=== PATIENT | male | born 1950 | race American Indian/Alaskan Native ===

== ENCOUNTER 2017-02-05 13:59 | Emergency (ER) | payer MEDICARE | END 2017-02-05 15:50 | disposition left against medical advice (07) | LOC: ED 13:59 | DX: R11.10 Vomiting, unspecified (principal); Z53.21 Procedure and treatment not carried out due to patient leaving prior to being seen by health care provider ==

== ENCOUNTER 2017-02-06 11:38 | Inpatient (IN) | payer MEDICARE ==
--- NOTE | 2017-02-06 12:57 | Emergency Department Report ---
HPI - General Chief Complaint: Weakness Time Seen by Provider: 02/06/17 11:57 - HPI HPI: Chief complaint: Weakness, decreased appetite, nausea and vomiting HPI: Patient is a 66-year-old male with a history of dementia, arthritis, diabetes and hypertension who according to his had a syncopal episode 3 weeks ago. Patient was seen at [facility] for 3 days and after that they states she took an to her neurologist Dr. Duarte. Patient was scheduled for an MRI today but is here instead. Patient's states for the last 3 days he's been having nausea and vomiting and been unable to eat. Patient also has decreased responsiveness and is not talking. states that she gave him some Pedialyte which she was able to keep down but he has not been able to keep anything else down. There is no diarrhea but according to his he's had a dark stool. also states that he's been having pain on urination and difficulty urinating for the last 2 weeks. Patient has had no fever but does have a slight dry cough. Mode of arrival: EMS Source: Patient and patient's Began: See above Duration: See above Context: See above Quality: Unable to assess Severity: out of 10 Improved with: Unable to assess Worsened with: Unable to assess Associated signs and symptoms: See above ED Past Medical Hx - Past Medical History Previous Medical History?: Yes Hx Hypertension: Yes Hx Diabetes: Yes Hx Arthritis: Yes (hands) Hx Dementia: Yes Hx HIV: No Additional medical history: Alzheimer's - Surgical History Past Surgical History?: No Additional Surgical History: Cataracts - Social History Smoking Status: Never Smoker Substance Use Type: None - Medications Home Medications: Home Medications Medication Instructions Recorded Confirmed Last Taken Type Aspirin [Aspirin BABY CHEW TAB] 81 mg PO QDAY 07/08/16 02/06/17 07/08/16 History Citalopram [celeXA] 20 mg PO QDAY 07/08/16 02/06/17 07/08/16 History Fluorometholone [Fml Forte 0.25% 1 drop OP QID 07/08/16 02/06/17 Unknown History eye drops] Hydrochlorothiazide [HCTZ] 25 mg PO QDAY 07/08/16 02/06/17 07/08/16 History Lisinopril [Zestril TAB] 20 mg PO QDAY 07/08/16 02/06/17 07/08/16 History Nepafenac [Ilevro 0.3%] 1 drop OP QHS 07/08/16 02/06/17 Unknown History Promethazine [Phenergan TAB] 25 mg PO Q6HR PRN 07/08/16 02/06/17 Unknown History amLODIPine [Norvasc] 5 mg PO DAILY 07/08/16 02/06/17 07/08/16 History Restasis 0.05% 1 drops OD BID 07/09/16 02/06/17 07/08/16 History Celecoxib [celeBREX] 200 mg PO BID 02/06/17 02/06/17 Unknown History Ibuprofen [Motrin] 600 mg PO Q8H PRN 02/06/17 02/06/17 Unknown History Memantine HCl/Donepezil HCl 1 tab PO DAILY 02/06/17 02/06/17 Unknown History [Namzaric 28 mg-10 mg Capsule] Pravastatin (Nf) [Pravachol] 80 mg PO QHS 02/06/17 02/06/17 Unknown History levETIRAcetam [Keppra TAB] 500 mg PO BID 02/06/17 02/06/17 Unknown History traMADol 50 mg PO BID 02/06/17 02/06/17 Unknown History traZODone [Desyrel] 150 mg PO QHS 02/06/17 02/06/17 Unknown History ED Review of Systems ROS: Stated complaint: WEAKNESS,AMR Other details as noted in HPI Comment: Unobtainable due to pts medical conditions (dementia) Physical Exam - Physical Exam Physical Exam: GENERAL: The patient is well-developed well-nourished . HEENT: Normocephalic. Atraumatic. Extraocular motions are intact. Patient has moist mucous membranes. NECK: Supple. No meningitic signs are noted. There is no adenopathy noted. CHEST/LUNGS: Clear to auscultation. There is no respiratory distress noted. HEART/CARDIOVASCULAR: Regular. There is no tachycardia. There is no gallop rub or murmur. ABDOMEN: Abdomen is soft, nontender. Patient has normal bowel sounds. There is no abdominal distention. SKIN: There is no rash. There is no edema. There is no diaphoresis. NEURO: The patient is awake, alert, and oriented to name only. The patient is cooperative. 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 The only question that the patient will answer his name. MUSCULOSKELETAL: There is no tenderness or deformity. There is no limitation range of motion. There is no evidence of acute injury. ED Course - Reevaluation(s) Reevaluation #1: 02/06/17 14:33 Patient given a liter of normal saline and will be admitted to the hospitalist for dehydration. ED Medical Decision Making - Lab Data Result diagrams: 02/06/17 12:29 02/06/17 12:29 Laboratory Tests 02/06/17 02/06/17 12:29 12:36 PT 13.1 INR 1.00 APTT 34.5 Troponin T < 0.010 Urinalysis within normal limits - EKG Data -: EKG Interpreted by Me EKG shows normal: sinus rhythm Rate: normal (61) - EKG Data When compared to previous EKG there are: previous EKG unavailable Interpretation: normal EKG - Radiology Data Radiology results: report reviewed (chest x-ray shows no acute process.) Critical care attestation.: If time is entered above; I have spent that time in minutes in the direct care of this critically ill patient, excluding procedure time. ED Disposition Clinical Impression: Dehydration, moderate Nausea & vomiting Qualifiers: Vomiting type: unspecified Vomiting Intractability: unspecified Qualified Code( s): R11.2 - Nausea with vomiting, unspecified Disposition: OP ADMITTED IP TO THIS HOSP Is pt being admited?: Yes Does the pt Need Aspirin: Yes Condition: Fair Referrals: PRIMARY CARE, [Primary Care Provider] - 3-5 Days Time of Disposition: 14:38 (admit to the hospitalist)
--- NOTE | 2017-02-06 12:57 | XRay Report ---
AP CHEST: HISTORY: Hypertension AP view of the chest demonstrates a normal mediastinal and cardiac contour with clear lungs and normal bony and soft tissue structures. Subtle infiltration at the right lung base has resolved since 07/08/16. IMPRESSION: Unremarkable AP chest.
[2017-02-06 12:58] LABS: Basophils % (Auto) 1.5 % (0.0-1.8); Eosinophils % (Auto) 3.8 % (0.0-4.3); Hematocrit 36.8 % (35.5-45.6); Hemoglobin 12.4 gm/dl (11.8-15.2); Mean Corpuscular HGB Conc 34 % (32-34); Mean Corpuscular Hemoglobin 31 pg (28-32); Mean Corpuscular Volume 92 fl (84-94); Platelet Count 316 K/mm3 (140-440); Red Blood Count 4.01 M/mm3 (3.65-5.03); Red Cell Distribution Width 14.4 % (13.2-15.2); White Blood Count 6.2 K/mm3 (4.5-11.0)
[2017-02-06 13:06] LABS: Partial Thromboplastin Time 34.5 Sec. (24.2-36.6)
[2017-02-06 13:15] LABS: Anion Gap 19 mmol/L; BUN/Creatinine Ratio 25.62; Blood Urea Nitrogen 41 mg/dL (9-20); Calcium 9.4 mg/dL (8.4-10.2); Carbon Dioxide 28 mmol/L (22-30); Chloride 89.1 mmol/L (98-107); Glucose 109 mg/dL (75-100); Potassium 3.4 mmol/L (3.6-5.0); Sodium 133 mmol/L (137-145)
[2017-02-06 14:01] LABS: Bilirubin,Urine NEG (Negative); Blood,Urine NEG (Negative); Ketones,Urine TR mg/dL (Negative); Leukocyte Esterase,Urine NEG (Negative); Nitrite,Urine NEG (Negative); Protein,Urine <15 mg/dL mg/dL (Negative); RBC,Urine < 1.0 /HPF (0.0-6.0); Urobilinogen,Urine < 2.0 mg/dL (<2.0)
[2017-02-06] MEDS ORDERED: ASPIRIN PO ONE (14:39)
--- NOTE | 2017-02-06 14:44 | Admit Criteria Form ---
Admission Criteria Documentation: DEHYDRATION Clinical Indications for Admission to Inpatient Care (Place 'X' for any and all applicable criteria): Admission is indicated for ANY ONE of the following (1)(2)(3)(4)(5): [X ]I. Inpatient admission required rather than observation care (see Dehydration: Observation Care guideline as appropriate) because of ANY ONE of the following: [X ]a) Vomiting that is severe or persistent [ ]b) Severe electrolyte abnormalities requiring inpatient care [ ]c) Hemodynamic instability [ ]d) IV fluid to replace significant ongoing losses (greater than 3 L/m2 per day (10) (11) [ ]e) Parenteral nutrition regimen that must be implemented on inpatient basis [ X]f) Other condition,treatment or monitoring requiring inpatient admission [ ]II. Serious cause for dehydration requiring acute hospitalization (eg, bowel obstruction, increased intracranial pressure, infectious cause) Extended stay beyond goal length of stay may be needed for(1)(3 )(4)(17): [ ]a) Chronic severe dehydration [ ]b) Persistent vital sign changes, severe electrolyte imbalance, or diagnosed cause of dehydration that requires continued hospitalization (eg, bowel obstruction, increased intracranial pressure) [ ]c) Older patients (65 years or older) [ ]d) Severe comorbid illness (eg, renal failure, heart failure, poorly controlled diabetes) The original [employer] content created by [employer] has been revised. The portions of the content which have been revised are identified through the use of italic text or in bold, and [facility] has neither reviewed nor approved the modified material. All other unmodified content is copyright [employer]. Please see references footnoted in the original [employer] edition 2016 Admission Criteria Met: Yes
--- NOTE | 2017-02-06 15:43 | History and Physical Report ---
History of Present Illness Date of examination: 02/06/17 Date of admission: 02/06/17 Chief complaint: nausea, vomiting History of present illness: Patient is 66 yo with dementia, diabetes , hypertension presented with nausea, vomiting and poor appetite for few days. also says he has been less responsive and not been talking much past 3 days. Of note, he had episode of syncope about 3 weeks ago , was admitted at [place], details unclear. On discharge was referred to Neurologist, Dr. Duarte. He went to see PCP, Dr. Montiel and was sent to ED. Here Creatinine elevated 1.6. he is dehydrated. Admit for further management Past History Past Medical History: diabetes, hypertension, hyperlipidemia, other (dementia) Past Surgical History: No surgical history Social history: , smoking (smoking), full code Family history: no significant family history Medications and Allergies Allergies Allergy/AdvReac Type Severity Reaction Status Date / Time No Known Allergies Allergy Unverified 07/08/16 17:08 Home Medications Medication Instructions Recorded Confirmed Last Taken Type Aspirin [Aspirin BABY CHEW TAB] 81 mg PO QDAY 07/08/16 02/06/17 07/08/16 History Citalopram [celeXA] 20 mg PO QDAY 07/08/16 02/06/17 07/08/16 History Fluorometholone [Fml Forte 0.25% 1 drop OP QID 07/08/16 02/06/17 Unknown History eye drops] Hydrochlorothiazide [HCTZ] 25 mg PO QDAY 07/08/16 02/06/17 07/08/16 History Lisinopril [Zestril TAB] 20 mg PO QDAY 07/08/16 02/06/17 07/08/16 History Nepafenac [Ilevro 0.3%] 1 drop OP QHS 07/08/16 02/06/17 Unknown History Promethazine [Phenergan TAB] 25 mg PO Q6HR PRN 07/08/16 02/06/17 Unknown History amLODIPine [Norvasc] 5 mg PO DAILY 07/08/16 02/06/17 07/08/16 History Restasis 0.05% 1 drops OD BID 07/09/16 02/06/17 07/08/16 History Celecoxib [celeBREX] 200 mg PO BID 02/06/17 02/06/17 Unknown History Ibuprofen [Motrin] 600 mg PO Q8H PRN 02/06/17 02/06/17 Unknown History Memantine HCl/Donepezil HCl 1 tab PO DAILY 02/06/17 02/06/17 Unknown History [Namzaric 28 mg-10 mg Capsule] Pravastatin (Nf) [Pravachol] 80 mg PO QHS 02/06/17 02/06/17 Unknown History levETIRAcetam [Keppra TAB] 500 mg PO BID 02/06/17 02/06/17 Unknown History traMADol 50 mg PO BID 02/06/17 02/06/17 Unknown History traZODone [Desyrel] 150 mg PO QHS 02/06/17 02/06/17 Unknown History Review of Systems All systems: negative (no fevwr, no chest pain, no SOB. All other systems reviewed and are negative) Exam - Constitutional Vitals: Temp Pulse Resp BP Pulse Ox 99.5 F 67 16 108/58 100 02/06/17 15:15 02/06/17 15:15 02/06/17 15:15 02/06/17 15:15 02/06/17 15:15 General appearance: Present: no acute distress - EENT Eyes: Present: PERRL ENT: hearing intact, clear oral mucosa - Neck Neck: Present: supple, normal ROM - Respiratory Respiratory effort: normal Respiratory: bilateral: CTA, negative: rales, rhonchi, wheezing - Cardiovascular Rhythm: regular Heart Sounds: Present: S1 & S2 (S1 and S2 reg, no murmurs, rubs or gallop) - Extremities Extremities: No edema - Abdominal General gastrointestinal: Present: soft, non-tender, non-distended, normal bowel sounds - Musculoskeletal Musculoskeletal: strength equal bilaterally (no focal signs) - Neurologic Neurologic: other (Lethargic) Results - Labs CBC & Chem 7: 02/06/17 12:29 02/06/17 12:29 Labs: Abnormal lab results 02/06/17 02/06/17 Range/Units 12:29 12:29 [place] % (Auto) 10.7 H (0.0-7.3) % Sodium 133 L (137-145) mmol/L Potassium 3.4 L (3.6-5.0) mmol/L Chloride 89.1 L (98-107) mmol/L BUN 41 H (9-20) mg/dL Creatinine 1.6 H (0.8-1.5) mg/dL Glucose 109 H (75-100) mg/dL Assessment and Plan Dehydration due to nausea and vomiting. Admit to med/surg. Iv fluids. Zofran iv prn for N/V. Acute kidney injury. Creatinine is 1.6. Give iv fluids. Recheck in am Encephalopathy with lethargy. neurochecks. Obtain MRI. Aspirin given in ED. No focal signs Dementia Diabetes mellitus type 2. Check fingerstick QACHS. check A1C Hypertension. BP stable. Hypokalemia. Replace Hyponatremia. Recheck in am. On iv fluids. DVT prophylaxis with Lovenox Full code status.
[2017-02-06] MEDS ORDERED: NON-FORMULARY (Fluorometholone [Fml Forte 0.25% Eye Drops] 1 DROP) OP SCH (18:00)
[2017-02-06] MEDS ORDERED: NEPAFENAC OP SCH (22:00)
[2017-02-06] MEDS ORDERED: PRAVASTATIN 80 MG PO SCH (22:00)
[2017-02-06] MEDS: NAMENDA XR PO SCH (22:35)
[2017-02-06] MEDS: KEPPRA PO SCH (22:36)
[2017-02-06] MEDS: ZOCOR PO SCH (22:36)
[2017-02-06] MEDS: ARICEPT PO SCH (22:36)
[2017-02-06] MEDS: NACL 0.9% 1000 ML 1,000 ML IV SCH (22:57)
[2017-02-07] MEDS: NACL 0.9% 1000 ML 1,000 ML IV SCH (05:58)
[2017-02-07 06:17] LABS: Hematocrit 34.6 % (35.5-45.6); Hemoglobin 11.9 gm/dl (11.8-15.2); Mean Corpuscular HGB Conc 34 % (32-34); Mean Corpuscular Hemoglobin 31 pg (28-32); Mean Corpuscular Volume 91 fl (84-94); Platelet Count 316 K/mm3 (140-440); Red Blood Count 3.81 M/mm3 (3.65-5.03); Red Cell Distribution Width 14.4 % (13.2-15.2); White Blood Count 7.6 K/mm3 (4.5-11.0)
[2017-02-07 06:34] LABS: BUN/Creatinine Ratio 25.83; Blood Urea Nitrogen 31 mg/dL (9-20); Calcium 9.1 mg/dL (8.4-10.2); Carbon Dioxide 20 mmol/L (22-30); Chloride 94.9 mmol/L (98-107); Glucose 116 mg/dL (75-100); Potassium 3.5 mmol/L (3.6-5.0); Sodium 137 mmol/L (137-145)
[2017-02-07 06:36] LABS: Anion Gap 26 mmol/L
[2017-02-07] MEDS ORDERED: MEMANTINE HCL PO SCH (10:00)
[2017-02-07] MEDS ORDERED: NORVASC PO SCH (10:00)
[2017-02-07] MEDS ORDERED: DONEPEZIL HCL PO SCH (10:00)
[2017-02-07] MEDS: KEPPRA PO SCH ×2 (10:15→21:56)
[2017-02-07] MEDS: K-DUR PO SCH ×2 (10:15→15:38)
[2017-02-07] MEDS: NORVASC PO SCH (10:15)
[2017-02-07] MEDS: BABY ASPIRIN PO SCH (10:15)
[2017-02-07] MEDS: LOVENOX SUB-Q SCH (10:16)
--- NOTE | 2017-02-07 11:48 | Progress Note ---
History Interval history: still lethargic, not talking Hospitalist Physical - Physical exam Narrative exam: Gen:Not in acute distress, Neck:supple, no JVD HEENT: Normocephalic, atraumatic Lungs:Clear to auscultation bilaterally, no rales or wheeze Heart:S1 and S2 reg, no murmurs,rubs or gallop Abdomen:soft, non tender, non distended, normal bowel sounds Ext: No edema, clubbing or cyanosis Neuro: Lethargic - Constitutional Vitals: Temp Pulse Resp BP Pulse Ox 98.5 F 74 20 119/76 100 02/07/17 08:30 02/07/17 08:30 02/07/17 08:30 02/07/17 08:30 02/07/17 08:30 General appearance: Present: no acute distress Results - Labs CBC & Chem 7: 02/07/17 05:40 02/08/17 04:19 Labs: Laboratory Last Values WBC 7.6 K/mm3 (4.5-11.0) 02/07/17 05:40 RBC 3.81 M/mm3 (3.65-5.03) 02/07/17 05:40 Hgb 11.9 gm/dl (11.8-15.2) 02/07/17 05:40 Hct 34.6 % (35.5-45.6) L 02/07/17 05:40 MCV 91 fl (84-94) 02/07/17 05:40 MCH 31 pg (28-32) 02/07/17 05:40 MCHC 34 % (32-34) 02/07/17 05:40 RDW 14.4 % (13.2-15.2) 02/07/17 05:40 Plt Count 316 K/mm3 (140-440) 02/07/17 05:40 Lymph % (Auto) 24.7 % (13.4-35.0) 02/06/17 12:29 [place] % (Auto) 10.7 % (0.0-7.3) H 02/06/17 12:29 Eos % (Auto) 3.8 % (0.0-4.3) 02/06/17 12:29 Baso % (Auto) 1.5 % (0.0-1.8) 02/06/17 12:29 Lymph # 1.5 K/mm3 (1.2-5.4) 02/06/17 12:29 [place] # 0.7 K/mm3 (0.0-0.8) 02/06/17 12:29 Eos # 0.2 K/mm3 (0.0-0.4) 02/06/17 12: Baso # 0.1 K/mm3 (0.0-0.1) 02/06/17 12:29 Seg Neutrophils % 59.3 % (40.0-70.0) 02/06/17 12:29 Seg Neutrophils # 3.7 K/mm3 (1.8-7.7) 02/06/17 12:29 PT 13.1 Sec. (12.2-14.9) 02/06/17 12:36 INR 1.00 (0.87-1.13) 02/06/17 12:36 APTT 34.5 Sec. (24.2-36.6) 02/06/17 12:36 Sodium 137 mmol/L (137-145) 02/07/17 05:40 Potassium 3.5 mmol/L (3.6-5.0) L 02/07/17 05:40 Chloride 94.9 mmol/L (98-107) L 02/07/17 05:40 Carbon Dioxide 20 mmol/L (22-30) L D 02/07/17 05:40 Anion Gap 26 mmol/L 02/07/17 05:40 BUN 31 mg/dL (9-20) H 02/07/17 05:40 Creatinine 1.2 mg/dL (0.8-1.5) 02/07/17 05:40 Estimated GFR > 60 ml/min 02/07/17 05:40 BUN/Creatinine Ratio 25.83 % 02/07/17 05:40 Glucose 116 mg/dL (75-100) H 02/07/17 05:40 Calcium 9.1 mg/dL (8.4-10.2) 02/07/17 05:40 Troponin T < 0.010 ng/mL (0.00-0.029) 02/06/17 12:29 Urine Color Yellow (Yellow) 02/06/17 13:20 Urine Turbidity Clear (Clear) 02/06/17 13:20 Urine pH 7.0 (5.0-7.0) 02/06/17 13:20 Ur Specific [place] 1.014 (1.003-1.030) 02/06/17 13:20 Urine Protein <15 mg/dl mg/dL (Negative) 02/06/17 13:20 Urine Glucose (UA) Neg mg/dL (Negative) 02/06/17 13:20 Urine Ketones Tr mg/dL (Negative) 02/06/17 13:20 Urine Blood Neg (Negative) 02/06/17 13:20 Urine Nitrite Neg (Negative) 02/06/17 13:20 Urine Bilirubin Neg (Negative) 02/06/17 13:20 Urine Ictotest Negative (Negative) 02/06/17 13:20 Urine Urobilinogen < 2.0 mg/dL (<2.0) 02/06/17 13:20 Ur Leukocyte Esterase Neg (Negative) 02/06/17 13:20 Urine WBC (Auto) 1.0 /HPF (0.0-6.0) 02/06/17 13:20 Urine RBC (Auto) < 1.0 /HPF (0.0-6.0) 02/06/17 13:20 U Epithel Cells (Auto) < 1.0 /HPF (0-13.0) 02/06/17 13:20 Hyaline Casts 3 /LPF 02/06/17 13:20 Blood Type A POSITIVE 02/06/17 12:29 Antibody Screen Negative 02/06/17 12:29
--- NOTE | 2017-02-07 11:50 | Cat Scan Report ---
CT HEAD WITHOUT CONTRAST: HISTORY: Altered mental status. Advanced chronic white matter changes are identified for this person's age. Chronic 1 cm infarct is noted in the left thalamus. There is no evidence for hemorrhage, mass or extra axial fluid collection. Ventricular size is within normal limits. 1 cm chronic focal infarct is identified in the left cerebellar hemisphere. The remaining posterior fossa contents are within normal limits. There is opacification of the right frontal, right ethmoid and visualized right maxillary sinuses. The remaining visualized sinuses and mastoid air cells are clear. IMPRESSION: Advanced chronic white matter changes. 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 Chronic-appearing sinus disease as described. No acute intracranial process is appreciated.
[2017-02-07] MEDS: RESTASIS 0.05% OP SCH ×2 (15:39→21:56)
[2017-02-07] MEDS: ZOCOR PO SCH (21:56)
[2017-02-07] MEDS: NAMENDA XR PO SCH (21:56)
[2017-02-07] MEDS: ARICEPT PO SCH (21:56)
[2017-02-07] MEDS ORDERED: HALDOL IM ONE (22:50)
[2017-02-08 05:13] LABS: BUN/Creatinine Ratio 18.88; Blood Urea Nitrogen 17 mg/dL (9-20); Calcium 9.3 mg/dL (8.4-10.2); Carbon Dioxide 28 mmol/L (22-30); Chloride 99.2 mmol/L (98-107); Glucose 102 mg/dL (75-100); Potassium 3.4 mmol/L (3.6-5.0); Sodium 142 mmol/L (137-145)
[2017-02-08 05:14] LABS: Anion Gap 18 mmol/L
[2017-02-08] MEDS ORDERED: K-DUR PO SCH (08:00)
[2017-02-08] MEDS: NACL 0.9% 1000 ML 1,000 ML IV SCH ×2 (09:31→18:30)
--- NOTE | 2017-02-08 10:25 | Consultation ---
History of Present Illness Consult date: 02/08/17 Requesting physician: LUDIVINA VERGARA Reason for Consult: AMS Chief complaint: AMS limits direct hx History of present illness: Patient is 66 yo with dementia, diabetes , hypertension presented with nausea, vomiting and poor appetite for 3-4 days also says he has been less responsive and not been talking much past 3 days. Sx are constant. There are no clear agrgavating, relieving or temporal factors. Severity limits communication. Of note, he had episode of syncope about 3 weeks ago , was admitted at [place]. On discharge was referred to Neurologist, Dr. Duarte. He went to see PCP, Dr. Montiel and was sent to ED. Here Creatinine elevated 1.6. He was clinically dehydrated. Past History Past Medical History: diabetes, hypertension, hyperlipidemia, other (dementia) Past Surgical History: No surgical history Social history: , lives with family, smoking (smoking), full code. denies: alcohol abuse, prescription drug abuse, IV drug use Family history: no significant family history Medications and Allergies Allergies Allergy/AdvReac Type Severity Reaction Status Date / Time No Known Allergies Allergy Unverified 07/08/16 17:08 Home Medications Medication Instructions Recorded Confirmed Last Taken Type Aspirin [Aspirin BABY CHEW TAB] 81 mg PO QDAY 07/08/16 02/06/17 07/08/16 History Citalopram [celeXA] 20 mg PO QDAY 07/08/16 02/06/17 07/08/16 History Fluorometholone [Fml Forte 0.25% 1 drop OP QID 07/08/16 02/06/17 Unknown History eye drops] Hydrochlorothiazide [HCTZ] 25 mg PO QDAY 07/08/16 02/06/17 07/08/16 History Lisinopril [Zestril TAB] 20 mg PO QDAY 07/08/16 02/06/17 07/08/16 History Nepafenac [Ilevro 0.3%] 1 drop OP QHS 07/08/16 02/06/17 Unknown History Promethazine [Phenergan TAB] 25 mg PO Q6HR PRN 07/08/16 02/06/17 Unknown History amLODIPine [Norvasc] 5 mg PO DAILY 07/08/16 02/06/17 07/08/16 History Restasis 0.05% 1 drops OD BID 07/09/16 02/06/17 07/08/16 History Celecoxib [celeBREX] 200 mg PO BID 02/06/17 02/06/17 Unknown History Ibuprofen [Motrin] 600 mg PO Q8H PRN 02/06/17 02/06/17 Unknown History Memantine HCl/Donepezil HCl 1 tab PO DAILY 02/06/17 02/06/17 Unknown History [Namzaric 28 mg-10 mg Capsule] Pravastatin (Nf) [Pravachol] 80 mg PO QHS 02/06/17 02/06/17 Unknown History levETIRAcetam [Keppra TAB] 500 mg PO BID 02/06/17 02/06/17 Unknown History traMADol 50 mg PO BID 02/06/17 02/06/17 Unknown History traZODone [Desyrel] 150 mg PO QHS 02/06/17 02/06/17 Unknown History Active Meds: Active Medications Amlodipine Besylate (Norvasc) 5 mg PO QDAY [facility] Last Admin: 02/07/17 10:15 Dose: 5 mg Aspirin (Baby Aspirin) 81 mg PO QDAY [facility] Last Admin: 02/07/17 10:15 Dose: 81 mg Donepezil HCl (Aricept) 10 mg PO QHS [facility] Last Admin: 02/07/17 21:56 Dose: 10 mg Enoxaparin Sodium (Lovenox) 40 mg SUB-Q DAILY [facility] Last Admin: 02/07/17 10:16 Dose: 40 mg Sodium Chloride (Nacl 0.9% 1000 Ml) 1,000 mls @ 125 mls/hr IV DIRECT [facility] Last Admin: 02/08/17 09:31 Dose: 125 mls/hr Levetiracetam (Keppra) 500 mg PO BID [facility] Last Admin: 02/07/17 21:56 Dose: 500 mg Memantine (Namenda Xr) 28 mg PO QHS [facility] Last Admin: 02/07/17 21:56 Dose: 28 mg Miscellaneous Medication (Restasis 0.05%) 1 drops OP BID [facility] Last Admin: 02/07/17 21:56 Dose: 1 drops Potassium Chloride (K-Dur) 40 meq PO Q4H [facility] Stop: 02/08/17 16:01 Simvastatin (Zocor) 40 mg PO QHS [facility] Last Admin: 02/07/17 21:56 Dose: 40 mg Review of Systems ROS unobtainable: due to mental status Physical Examination - Vital Signs Vital Signs: Vital Signs Resp Pulse Ox 18 99 02/06/17 13:29 02/06/17 13:29 - Constitutional General appearance: uncomfortable, acutely ill, older than stated age - EENT EENT: Present: ATNC, PERRL, mucous membranes dry, hearing intact - Respiratory Respiratory: Present: chest non-tender, no respiratory distress, decreased breath sounds - Cardiovascular Cardiovascular: Present: regular rate Extremities: Present: no peripheral edema bilatateraly, no clubbing, cyanosis, no inflammation, no ischemia or petechiae - Gastrointestinal Gastrointestinal: Present: normoactive bowel sounds, soft, non-distended - Integumentary Integumentary: Present: normal - Neurologic Cranial nerve examination: PERRL, EOMI, face symmetric, tongue midline, intact, intact shoulder shrug, Intact Vestibulo-ocular r, intact corneal reflex, normal palatal elevation Speech examination: other (follows all commands but no expressive speech although nods appropriately) Sensorimotor examination: intact Detailed motor examination: grossly full strength in Motor examination - right side: 5/5: biceps, triceps, wrist flexion, wrist extension, emerging technologies director, hip flexors, knee extensors, dorsiflexion, toe extension (EHL) , plantarflexion Motor examination - left side: 5/5: biceps, triceps, wrist flexion, wrist extension, emerging technologies director, hip flexors, knee extensors, dorsiflexion, toe extension (EHL) , plantarflexion Detailed sensory examination: intact, pain, temperature Reflex and gait examination: intact Reflexes: 0: ankle, 2+: bicep, knee, tricep - Musculoskeletal Musculoskeletal: Present: no fluid collection, no pain, normal range of motion - Psychiatric Psychiatric: Absent: cooperative Results - Laboratory Findings CBC and BMP: 02/07/17 05:40 02/08/17 04:19 Abnormal Lab Findings: Abnormal Labs 02/07/17 02/07/17 02/08/17 05:40 05:40 04:19 Hct 34.6 L Potassium 3.5 L 3.4 L Chloride 94.9 L Carbon Dioxide 20 L D BUN 31 H Glucose 116 H 102 H Assessment and Plan 66 YO M Hx dementia on Aricept unclear specific baseline but apparently speaks fully a/w AMS in setting of [place]. He has paucity of speech and drowsiness but no focal deficits as he nods appropriately and follows all commands. 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 Stroke, Seizure or Meningitis. Recommendations: 1. MRI Brain w/o Alfred pending 2. Check serum TSH/Vit B12/Ammonia and correct as necessary 3. Cont Infectious work up/medical management for UTI, PNA, cellulitis, bacteremia, etc. 4. Avoid hyponatremia, hypo/hyper-calcemia, hypo/hyperglycemia, acidosis, hypoxia/hypoxemia, hypercarbia/hypercapnia 5. Avoid institution of any psychoactive medications (e.g. antihistamines, anticholinergics, BZD, hypnotics, opiates) as able unless low doses of low potency antipsychotic needed for behavioral issues complicating medical care 6. Cont home meds-there is no neurologic indication to change. Cont Aricept 10mg QDay
[2017-02-08] MEDS: LOVENOX SUB-Q SCH (11:04)
[2017-02-08] MEDS: BABY ASPIRIN PO SCH (11:05)
[2017-02-08] MEDS: KEPPRA PO SCH ×2 (11:05→21:56)
[2017-02-08] MEDS: POTASSIUM CHLORIDE PO SCH ×3 (11:06→23:02)
[2017-02-08] MEDS: NORVASC PO SCH (11:13)
--- NOTE | 2017-02-08 15:09 | Progress Note ---
Hospitalist Physical - Constitutional Vitals: Temp Pulse Resp BP Pulse Ox 98.7 F 98 H 18 180/99 99 02/08/17 07:56 02/08/17 11:13 02/08/17 07:56 02/08/17 11:13 02/08/17 07:56 General appearance: Present: no acute distress Results - Labs CBC & Chem 7: 02/07/17 05:40 02/08/17 04:19 Labs: Laboratory Last Values WBC 7.6 K/mm3 (4.5-11.0) 02/07/17 05:40 RBC 3.81 M/mm3 (3.65-5.03) 02/07/17 05:40 Hgb 11.9 gm/dl (11.8-15.2) 02/07/17 05:40 Hct 34.6 % (35.5-45.6) L 02/07/17 05:40 MCV 91 fl (84-94) 02/07/17 05:40 MCH 31 pg (28-32) 02/07/17 05:40 MCHC 34 % (32-34) 02/07/17 05:40 RDW 14.4 % (13.2-15.2) 02/07/17 05:40 Plt Count 316 K/mm3 (140-440) 02/07/17 05:40 Lymph % (Auto) 24.7 % (13.4-35.0) 02/06/17 12:29 [place] % (Auto) 10.7 % (0.0-7.3) H 02/06/17 12:29 Eos % (Auto) 3.8 % (0.0-4.3) 02/06/17 12:29 Baso % (Auto) 1.5 % (0.0-1.8) 02/06/17 12:29 Lymph # 1.5 K/mm3 (1.2-5.4) 02/06/17 12:29 [place] # 0.7 K/mm3 (0.0-0.8) 02/06/17 12:29 Eos # 0.2 K/mm3 (0.0-0.4) 02/06/17 12:29 Baso # 0.1 K/mm3 (0.0-0.1) 02/06/17 12:29 Seg Neutrophils % 59.3 % (40.0-70.0) 02/06/17 12:29 Seg Neutrophils # 3.7 K/mm3 (1.8-7.7) 02/06/17 12:29 PT 13.1 Sec. (12.2-14.9) 02/06/17 12:36 INR 1.00 (0.87-1.13) 02/06/17 12:36 APTT 34.5 Sec. (24.2-36.6) 02/06/17 12:36 Sodium 142 mmol/L (137-145) 02/08/17 04:19 Potassium 3.4 mmol/L (3.6-5.0) L 02/08/17 04:19 Chloride 99.2 mmol/L (98-107) 02/08/17 04:19 Carbon Dioxide 28 mmol/L (22-30) D 02/08/17 04:19 Anion Gap 18 mmol/L 02/08/17 04:19 BUN 17 mg/dL (9-20) 02/08/17 04:19 Creatinine 0.9 mg/dL (0.8-1.5) 02/08/17 04:19 Estimated GFR > 60 ml/min 02/08/17 04:19 BUN/Creatinine Ratio 18.88 % 02/08/17 04:19 Glucose 102 mg/dL (75-100) H 02/08/17 04:19 Calcium 9.3 mg/dL (8.4-10.2) 02/08/17 04:19 Ammonia 39.0 umol/L (25-60) 02/08/17 09:36 Troponin T < 0.010 ng/mL (0.00-0.029) 02/06/17 12:29 Vitamin B12 1387 pg/mL (211-911) H 02/08/17 09:36 TSH 1.660 mlU/mL (0.270-4.200) 02/08/17 09:36 Urine Color Yellow (Yellow) 02/06/17 13:20 Urine Turbidity Clear (Clear) 02/06/17 13:20 Urine pH 7.0 (5.0-7.0) 02/06/17 13:20 Ur Specific [place] 1.014 (1.003-1.030) 02/06/17 13:20 Urine Protein <15 mg/dl mg/dL (Negative) 02/06/17 13:20 Urine Glucose (UA) Neg mg/dL (Negative) 02/06/17 13:20 Urine Ketones Tr mg/dL (Negative) 02/06/17 13:20 Urine Blood Neg (Negative) 02/06/17 13:20 Urine Nitrite Neg (Negative) 02/06/17 13:20 Urine Bilirubin Neg (Negative) 02/06/17 13:20 Urine Ictotest Negative (Negative) 02/06/17 13:20 Urine Urobilinogen < 2.0 mg/dL (<2.0) 02/06/17 13:20 Ur Leukocyte Esterase Neg (Negative) 02/06/17 13:20 Urine WBC (Auto) 1.0 /HPF (0.0-6.0) 02/06/17 13:20 Urine RBC (Auto) < 1.0 /HPF (0.0-6.0) 02/06/17 13:20 U Epithel Cells (Auto) < 1.0 /HPF (0-13.0) 02/06/17 13:20 Hyaline Casts 3 /LPF 02/06/17 13:20 Blood Type A POSITIVE 02/06/17 12:29 Antibody Screen Negative 02/06/17 12:29
[2017-02-08] MEDS: RESTASIS 0.05% OP SCH ×2 (18:36→21:57)
[2017-02-08] MEDS: NAMENDA XR PO SCH (21:55)
[2017-02-08] MEDS: ZOCOR PO SCH (21:56)
[2017-02-08] MEDS: ARICEPT PO SCH (21:56)
[2017-02-09] MEDS: NACL 0.9% 1000 ML 1,000 ML IV SCH ×3 (03:12→21:56)
[2017-02-09 05:59] LABS: Anion Gap 14 mmol/L; Blood Urea Nitrogen 8 mg/dL (9-20); Calcium 8.8 mg/dL (8.4-10.2); Carbon Dioxide 23 mmol/L (22-30); Glucose 113 mg/dL (75-100); Potassium 4.7 mmol/L (3.6-5.0); Sodium 142 mmol/L (137-145)
--- NOTE | 2017-02-09 09:57 | Query- Renal Failure ---
Dear Date:_02/09/17 [employer] Lines Insurance Agent/CDS:Michael Gutierrez Phone#:_[phone] Exercise your independent professional judgment when responding to query. Questions asked do not imply a particular answer is desired or expected. We greatly appreciate your clarification on this issue. Clinical Documentation States: Patient is 66 yo with dementia, diabetes , hypertension presented with nausea, vomiting and poor appetite for few days. also says he has been less responsive and not been talking much past 3 days. Of note, he had episode of syncope about 3 weeks ago , was admitted at [facility], details unclear. Clinical Findings Show: 02/06 02/08 Creat: 1.6 0.8 BUN: 41 17 Please clarify if you mean: Acute Renal Failure with or due to: [x] Tubular Necrosis [ ] Medullary Necrosis [ ] Vasomotor Nephropathy [ ] Shock Kidney [ ] Tubular Nephrosis [ ] Renal Tubular Stasis [ ] Cortical Necrosis [ ] Acute Renal Failure (unspecified) [ ] Lower Tubular Nephrosis [ ] Other: [ ] Not Applicable Present on Admission: [x] Yes (Y) [ ] Clinically undeterminable (W) [ ] No (N) Please also document response in your Progress Notes and/or Discharge Summary and indicate if the condition was present on admission. MTDD
--- NOTE | 2017-02-09 10:30 | Progress Note ---
Hospitalist Physical - Constitutional Vitals: Temp Pulse Resp BP Pulse Ox 98.3 F 71 20 174/90 97 02/09/17 07:34 02/09/17 07:34 02/09/17 07:34 02/09/17 07:34 02/09/17 07:34 General appearance: Present: no acute distress Results - Labs CBC & Chem 7: 02/07/17 05:40 02/09/17 05:25 Labs: Laboratory Last Values WBC 7.6 K/mm3 (4.5-11.0) 02/07/17 05:40 RBC 3.81 M/mm3 (3.65-5.03) 02/07/17 05:40 Hgb 11.9 gm/dl (11.8-15.2) 02/07/17 05:40 Hct 34.6 % (35.5-45.6) L 02/07/17 05:40 MCV 91 fl (84-94) 02/07/17 05:40 MCH 31 pg (28-32) 02/07/17 05:40 MCHC 34 % (32-34) 02/07/17 05:40 RDW 14.4 % (13.2-15.2) 02/07/17 05:40 Plt Count 316 K/mm3 (140-440) 02/07/17 05:40 Lymph % (Auto) 24.7 % (13.4-35.0) 02/06/17 12:29 [place] % (Auto) 10.7 % (0.0-7.3) H 02/06/17 12: Eos % (Auto) 3.8 % (0.0-4.3) 02/06/17 12:29 Baso % (Auto) 1.5 % (0.0-1.8) 02/06/17 12:29 Lymph # 1.5 K/mm3 (1.2-5.4) 02/06/17 12:29 [place] # 0.7 K/mm3 (0.0-0.8) 02/06/17 12:29 Eos # 0.2 K/mm3 (0.0-0.4) 02/06/17 12:29 Baso # 0.1 K/mm3 (0.0-0.1) 02/06/17 12:29 Seg Neutrophils % 59.3 % (40.0-70.0) 02/06/17 12:29 Seg Neutrophils # 3.7 K/mm3 (1.8-7.7) 02/06/17 12:29 PT 13.1 Sec. (12.2-14.9) 02/06/17 12:36 INR 1.00 (0.87-1.13) 02/06/17 12:36 APTT 34.5 Sec. (24.2-36.6) 02/06/17 12:36 Sodium 142 mmol/L (137-145) 02/08/17 04:19 Potassium 4.7 mmol/L (3.6-5.0) D 02/09/17 05:25 Chloride 99.2 mmol/L (98-107) 02/08/17 04:19 Carbon Dioxide 23 mmol/L (22-30) 02/09/17 05:25 Anion Gap 18 mmol/L 02/08/17 04:19 BUN 8 mg/dL (9-20) L 02/09/17 05:25 Creatinine 0.8 mg/dL (0.8-1.5) 02/09/17 05:25 Estimated GFR > 60 ml/min 02/09/17 05:25 BUN/Creatinine Ratio 10.00 % 02/09/17 05:25 Glucose 113 mg/dL (75-100) H 02/09/17 05:25 POC Glucose 99 (70-105) 02/09/17 06:08 Calcium 8.8 mg/dL (8.4-10.2) 02/09/17 05:25 Ammonia 39.0 umol/L (25-60) 02/08/17 09:36 Troponin T < 0.010 ng/mL (0.00-0.029) 02/06/17 12:29 Vitamin B12 1387 pg/mL (211-911) H 02/08/17 09:36 TSH 1.660 mlU/mL (0.270-4.200) 02/08/17 09:36 Urine Color Yellow (Yellow) 02/06/17 13:20 Urine Turbidity Clear (Clear) 02/06/17 13:20 Urine pH 7.0 (5.0-7.0) 02/06/17 13:20 Ur Specific [place] 1.014 (1.003-1.030) 02/06/17 13:20 Urine Protein <15 mg/dl mg/dL (Negative) 02/06/17 13:20 Urine Glucose (UA) Neg mg/dL (Negative) 02/06/17 13:20 Urine Ketones Tr mg/dL (Negative) 02/06/17 13:20 Urine Blood Neg (Negative) 02/06/17 13:20 Urine Nitrite Neg (Negative) 02/06/17 13:20 Urine Bilirubin Neg (Negative) 02/06/17 13:20 Urine Ictotest Negative (Negative) 02/06/17 13:20 Urine Urobilinogen < 2.0 mg/dL (<2.0) 02/06/17 13:20 Ur Leukocyte Esterase Neg (Negative) 02/06/17 13:20 Urine WBC (Auto) 1.0 /HPF (0.0-6.0) 02/06/17 13:20 Urine RBC (Auto) < 1.0 /HPF (0.0-6.0) 02/06/17 13:20 U Epithel Cells (Auto) < 1.0 /HPF (0-13.0) 02/06/17 13:20 Hyaline Casts 3 /LPF 02/06/17 13:20 Blood Type A POSITIVE 02/06/17 12:29 Antibody Screen Negative 02/06/17 12:29
[2017-02-09] MEDS: LOVENOX SUB-Q SCH (11:17)
[2017-02-09] MEDS: NORVASC PO SCH (11:18)
[2017-02-09] MEDS: RESTASIS 0.05% OP SCH ×2 (11:18→21:55)
[2017-02-09] MEDS: KEPPRA PO SCH ×2 (11:19→21:55)
[2017-02-09] MEDS: BABY ASPIRIN PO SCH (11:19)
[2017-02-09] MEDS ORDERED: ATIVAN IV ONE (15:41)
--- NOTE | 2017-02-09 19:34 | Magnetic Resonance Report ---
FINAL REPORT PROCEDURE: MR BRAIN WO CON TECHNIQUE: Magnetic resonance imaging of the brain was performed without contrast material. HISTORY: altered mental status COMPARISON: Head CT from February 07, 2017 FINDINGS: Motion limits the study. Cerebellar tonsils appear normally positioned. Moderate volume loss is seen in the brain with compensatory enlargement of the ventricular system. No areas of restricted diffusion are seen in the brain. Old lacunar infarcts are seen in the cerebellum and left superior cerebellar peduncle. Confluent increased T2 signal within the aria is probably from chronic small vessel ischemic changes. Confluent increased T2 signal is seen in the supratentorial white matter, with areas of increased T2 signal present in basal ganglia, thalami, and heads of the caudate nuclei. Normal flow voids are seen in the visualized portions of the vessels of the [place]. Changes of right maxillary, ethmoid, and right frontal sinusitis are seen. A few punctate foci of old micro hemorrhage are seen in the cerebellum and left thalamus. No suggestion of recent hemorrhage is seen. No mass effect is seen. IMPRESSION: Prominent abnormal increased T2 signal is seen in the supratentorial white matter, basal ganglia, thalami, and aria. Findings are probably from chronic small vessel ischemic changes, as are the old lacunar infarcts in the cerebellum. An acute CVA is not seen. Other causes of encephalopathy, superimposed upon chronic small vessel ischemic changes, cannot be excluded. Changes of acute sinusitis are seen.
[2017-02-09] MEDS: NAMENDA XR PO SCH (21:54)
[2017-02-09] MEDS: ARICEPT PO SCH (21:55)
[2017-02-09] MEDS: ZOCOR PO SCH (21:55)
[2017-02-10] MEDS ORDERED: APRESOLINE IV PRN (03:30)
[2017-02-10 06:05] LABS: Anion Gap 17 mmol/L; Blood Urea Nitrogen 7 mg/dL (9-20); Calcium 8.9 mg/dL (8.4-10.2); Carbon Dioxide 22 mmol/L (22-30); Chloride 109.6 mmol/L (98-107); Glucose 99 mg/dL (75-100); Sodium 145 mmol/L (137-145)
[2017-02-10] MEDS: NACL 0.9% 1000 ML 1,000 ML IV SCH (06:07)
--- NOTE | 2017-02-10 10:47 | Discharge Summary ---
Providers - Providers Date of Admission: 02/06/17 14:40 Date of discharge: 02/10/17 Attending physician: LUDIVINA VERGARA 02/08/17 08:39 Consult to Physician [CONS] Routine Consulting Provider: TAVON KNOWLES Reason For Exam: altered mental status Place consult to:: Dr. Knowles Notified:: answering machine Phone number called:: [phone] Was contact made?: No If yes, spoke with:: hiwot hanson Time called:: 11:56 02/10/17 07:07 Physical Therapy Evaluation and Treat [CONS] Routine Comment: Reason For Exam: generalized weakness Speech Therapy Evaluation and Treat [CONS] Routine Reason For Exam: speech difficulty Primary care physician: CHEMISTRY SPECIALIST Hospitalization Condition: Fair Disposition: DISCHARGED TO HOME OR SELFCARE - Discharge Diagnoses (1) DUONG (acute kidney injury) Status: Acute (2) Dehydration Status: Acute (3) Dementia Status: Acute Qualifiers: Dementia type: D Alzheimer's disease onset: A Dementia behavioral disturbance: D (4) Nausea & vomiting Status: Acute Qualifiers: Vomiting type: unspecified Vomiting Intractability: unspecified Qualified Code(s): R11.2 - Nausea with vomiting, unspecified Exam - Constitutional Vitals: Temp Pulse Resp BP Pulse Ox 98.4 F 88 18 165/91 97 02/10/17 08:00 02/10/17 08:00 02/10/17 08:00 02/10/17 08:00 02/10/17 08:00 Plan Activity: advance as tolerated Diet: low fat, low cholesterol, low salt, diabetic Special Instructions: physical therapy, home health RN Additional Instructions: 1.Follow up with PCP in 1 week. 2.Follow up with Neurology in 1 week Follow up with: PRIMARY CARE, [Primary Care Provider] - 3-5 Days Prescriptions: Donepezil [Aricept] 10 mg PO QHS #30 tablet
[2017-02-10] MEDS: KEPPRA PO SCH (12:15)
[2017-02-10] MEDS: BABY ASPIRIN PO SCH (12:15)
[2017-02-10] MEDS: LOVENOX SUB-Q SCH (12:15)
[2017-02-10] MEDS: NORVASC PO SCH (12:16)
[2017-02-10] MEDS: RESTASIS 0.05% OP SCH (12:31)
[2017-02-10 18:24] VITALS: BP 169/87
== END 2017-02-10 19:00 | disposition home or self-care (01) | DRG 682 ==
LOC: ED 11:38 → 3A 14:40 → UNDOADMIN 14:40 → 3A 21:02
PROVIDERS: ADMIT Internal Medicine; ATTEND Internal Medicine
DX: N17.0 Acute kidney failure with tubular necrosis (principal); G93.41 Metabolic encephalopathy; E87.1 Hypo-osmolality and hyponatremia; E86.0 Dehydration; E11.9 Type 2 diabetes mellitus without complications; I10 Essential (primary) hypertension; E78.5 Hyperlipidemia, unspecified; F17.210 Nicotine dependence, cigarettes, uncomplicated; M19.90 Unspecified osteoarthritis, unspecified site; G30.9 Alzheimer's disease, unspecified; F02.80 Dementia in other diseases classified elsewhere, unspecified severity, without behavioral disturbance, psychotic disturbance, mood disturbance, and anxiety
CPT/HCPCS: 36415; 70450; 70551; 71010; 80048; 81001; 82140; 82607; 82962; 84443; 84484; 85025; 85027; 85610; 85730; 86850; 86900; 86901; 87040; 87086; 93005; 93010; G8978-GP; G8979-GP; J0360; J1630; J1650; J2060; J7030

== ENCOUNTER 2017-11-29 07:45 | Emergency (ER) | payer MEDICARE ==
--- NOTE | 2017-11-29 09:28 | Emergency Department Report ---
ED General Adult HPI - General Chief complaint: Dyspnea/Respdistress Stated complaint: SOB Time Seen by Provider: 11/29/17 09:18 Source: patient, EMS Mode of arrival: Stretcher Limitations: No Limitations - History of Present Illness Initial comments: The patient is transported to this facility for respiratory difficulty. He states to me he thinks that his " panicked". He does have a diffuse history of dementia. He is not complaining of breathing difficulty at this time. He states that he was somewhat anxious. I do see that he is on trazodone , Aricept and Memantadine. -: Gradual, hour(s) Location: chest (a anterior chest pain which is not persistent patient couldn't describe) Radiation: non-radiation Quality: other Consistency: now resolved Improves with: none Worsens with: none Associated Symptoms: shortness of breath - Related Data Home Medications Medication Instructions Recorded Confirmed Last Taken Citalopram [celeXA] 40 mg PO QDAY 07/08/16 11/29/17 07/08/16 amLODIPine [Norvasc] 5 mg PO DAILY 07/08/16 11/29/17 07/08/16 Restasis 0.05% 1 drops OD BID 07/09/16 11/29/17 07/08/16 traZODone [Desyrel] 150 mg PO QHS 02/06/17 11/29/17 Unknown AtorvaSTATin [Lipitor] 40 mg PO QHS 11/29/17 11/29/17 Unknown Clopidogrel [Plavix] 75 mg PO QDAY 11/29/17 11/29/17 Unknown Lidocaine [Lidoderm] 1 each TP DAILY 11/29/17 11/29/17 Unknown Lisinopril [Zestril] 40 mg PO DAILY 11/29/17 11/29/17 Unknown Memantine HCl [Namenda Xr] 28 mg PO DAILY 11/29/17 11/29/17 Unknown Tamsulosin [Flomax] 0.4 mg PO QHS 11/29/17 11/29/17 Unknown Tizanidine HCl [tiZANidine] 2 mg PO QHS 11/29/17 11/29/17 Unknown levETIRAcetam [Keppra] 500 mg PO BID 11/29/17 11/29/17 Unknown metFORMIN [Glucophage] 500 mg PO BID 11/29/17 11/29/17 Unknown traMADol [Ultram] 50 mg PO BID 11/29/17 11/29/17 Unknown Previous Rx's Medication Instructions Recorded Last Taken Type Donepezil [Aricept] 10 mg PO QHS #30 tablet 02/10/17 Unknown Rx Allergies Allergy/AdvReac Type Severity Reaction Status Date / Time No Known Allergies Allergy Unverified 07/08/16 17:08 ED Review of Systems ROS: Stated complaint: SOB Other details as noted in HPI Constitutional: denies: chills, fever Eyes: denies: eye pain, eye discharge, vision change ENT: denies: ear pain, throat pain Respiratory: shortness of breath. denies: cough, wheezing Cardiovascular: chest pain. denies: palpitations Endocrine: no symptoms reported Gastrointestinal: denies: abdominal pain, nausea, diarrhea Genitourinary: denies: urgency, dysuria Musculoskeletal: denies: back pain, joint swelling, arthralgia Skin: denies: rash, lesions Neurological: denies: headache, weakness, paresthesias Psychiatric: denies: anxiety, depression Hematological/Lymphatic: denies: easy bleeding, easy bruising ED Past Medical Hx - Past Medical History Previous Medical History?: Yes Hx Hypertension: Yes Hx CVA: Yes (x3; right sided weakness) Hx Diabetes: Yes Hx Arthritis: Yes (hands) Hx Dementia: Yes Hx HIV: No Additional medical history: Alzheimer's - Surgical History Past Surgical History?: Yes Additional Surgical History: Cataracts - Social History Smoking Status: Former Smoker Substance Use Type: None - Medications Home Medications: Home Medications Medication Instructions Recorded Confirmed Last Taken Type Citalopram [celeXA] 40 mg PO QDAY 07/08/16 11/29/17 07/08/16 History amLODIPine [Norvasc] 5 mg PO DAILY 07/08/16 11/29/17 07/08/16 History Restasis 0.05% 1 drops OD BID 07/09/16 11/29/17 07/08/16 History traZODone [Desyrel] 150 mg PO QHS 02/06/17 11/29/17 Unknown History Donepezil [Aricept] 10 mg PO QHS #30 tablet 02/10/17 11/29/17 Unknown Rx AtorvaSTATin [Lipitor] 40 mg PO QHS 11/29/17 11/29/17 Unknown History Clopidogrel [Plavix] 75 mg PO QDAY 11/29/17 11/29/17 Unknown History Lidocaine [Lidoderm] 1 each TP DAILY 11/29/17 11/29/17 Unknown History Lisinopril [Zestril] 40 mg PO DAILY 11/29/17 11/29/17 Unknown History Memantine HCl [Namenda Xr] 28 mg PO DAILY 11/29/17 11/29/17 Unknown History Tamsulosin [Flomax] 0.4 mg PO QHS 11/29/17 11/29/17 Unknown History Tizanidine HCl [tiZANidine] 2 mg PO QHS 11/29/17 11/29/17 Unknown History levETIRAcetam [Keppra] 500 mg PO BID 11/29/17 11/29/17 Unknown History metFORMIN [Glucophage] 500 mg PO BID 11/29/17 11/29/17 Unknown History traMADol [Ultram] 50 mg PO BID 11/29/17 11/29/17 Unknown History ED Physical Exam - General Limitations: No Limitations General appearance: alert, in no apparent distress - Head Head exam: Present: atraumatic, normocephalic - Eye Eye exam: Present: normal appearance. Absent: scleral icterus - ENT ENT exam: Present: mucous membranes moist - Neck Neck exam: Present: normal inspection - Respiratory Respiratory exam: Present: normal lung sounds bilaterally. Absent: respiratory distress - Cardiovascular Cardiovascular Exam: Present: regular rate, normal rhythm. Absent: systolic murmur, diastolic murmur, rubs, gallop - GI/Abdominal GI/Abdominal exam: Present: soft, normal bowel sounds. Absent: distended, tenderness, guarding, rebound, rigid - Rectal Rectal exam: Present: deferred - Extremities Exam Extremities exam: Present: normal inspection - Back Exam Back exam: Present: normal inspection. Absent: CVA tenderness (R), CVA tenderness (L) - Neurological Exam Neurological exam: Present: alert, oriented X3, CN II-XII intact. Absent: motor sensory deficit - Psychiatric Psychiatric exam: Present: normal affect, normal mood - Skin Skin exam: Present: warm, dry, intact, normal color. Absent: rash ED Course Vital Signs 11/29/17 11/29/17 11/29/17 08:50 08:55 09:01 Temperature 98.1 F Pulse Rate 50 L 54 L Respiratory 14 16 Rate Blood Pressure 134/62 139/65 O2 Sat by Pulse 94 96 98 Oximetry 11/29/17 11/29/17 10:01 11:00 Temperature Pulse Rate 51 L 66 Respiratory 12 19 Rate Blood Pressure 141/66 106/89 O2 Sat by Pulse 100 100 Oximetry - Reevaluation(s) Reevaluation #1: Patient was given a liter of IV fluid and was fed. He had no evidence of difficulty with his breathing. He had no complaint of chest pain. He is appropriate for outpatient management. 11/29/17 13:04 ED Medical Decision Making - Lab Data Result diagrams: 11/29/17 09:35 11/29/17 09:35 Laboratory Results - last 24 hr 11/29/17 11/29/17 11/29/17 09:35 09:35 09:35 WBC 5.0 RBC 3.63 L Hgb 11.6 L Hct 34.7 L MCV 96 H MCH 32 MCHC 34 RDW 15.5 H Plt Count 264 Lymph % (Auto) 22.3 [place] % (Auto) 12.9 H Eos % (Auto) 9.8 H Baso % (Auto) 1.1 Lymph # 1.1 L [place] # 0.6 Eos # 0.5 H Baso # 0.1 Seg Neutrophils % 53.9 Seg Neutrophils # 2.7 PT 13.1 INR 0.95 APTT 32.0 Sodium 143 Potassium 4.0 Chloride 101.2 Carbon Dioxide 30 Anion Gap 16 BUN 35 H Creatinine 0.9 Estimated GFR > 60 BUN/Creatinine Ratio 39 Glucose 98 POC Glucose Calcium 9.4 Magnesium Total Bilirubin Direct Bilirubin AST ALT Alkaline Phosphatase Total Creatine Kinase CK-MB (CK-2) CK-MB (CK-2) Rel Index Troponin T NT-Pro-B Natriuret Pep Total Protein Albumin Albumin/Globulin Ratio 11/29/17 11/29/17 11/29/17 09:35 09:35 09:56 WBC RBC Hgb Hct MCV MCH MCHC RDW Plt Count Lymph % (Auto) [place] % (Auto) Eos % (Auto) Baso % (Auto) Lymph # [place] # Eos # Baso # Seg Neutrophils % Seg Neutrophils # PT INR APTT Sodium Potassium Chloride Carbon Dioxide Anion Gap BUN Creatinine Estimated GFR BUN/Creatinine Ratio Glucose POC Glucose 100 Calcium Magnesium 2.10 Total Bilirubin 0.20 Direct Bilirubin < 0.2 AST 10 ALT 10 Alkaline Phosphatase 67 Total Creatine Kinase 53 L CK-MB (CK-2) 1.2 CK-MB (CK-2) Rel Index 2.2 Troponin T < 0.010 NT-Pro-B Natriuret Pep 35.92 Total Protein 6.8 Albumin 3.7 L Albumin/Globulin Ratio 1.2 - EKG Data -: EKG Interpreted by Pr EKG shows normal: sinus rhythm, axis, intervals, QRS complexes, ST-T waves Rate: normal - EKG Data Interpretation: other (somewhat suggestive of LVH doesn't meet full criteria no ischemic changes: Prehospital EKG) Critical care attestation.: If time is entered above; I have spent that time in minutes in the direct care of this critically ill patient, excluding procedure time. ED Disposition Clinical Impression: Volume depletion, Prerenal azotemia Dementia Qualifiers: Dementia type: unspecified type Dementia behavioral disturbance: with behavioral disturbance Qualified Code(s): F03.91 - Unspecified dementia with behavioral disturbance Disposition: DC-01 TO HOME OR SELFCARE Is pt being admited?: No Does the pt Need Aspirin: No Condition: Stable Instructions: Dehydration (ED), Dementia (ED) Referrals: TIERNEY GU MD [Primary Care Provider] - 24 Hours Time of Disposition: 13:06
[2017-11-29 10:15] LABS: Basophils # (Auto) 0.1 K/mm3 (0.0-0.1); Basophils % (Auto) 1.1 % (0.0-1.8); Eosinophils # (Auto) 0.5 K/mm3 (0.0-0.4); Eosinophils % (Auto) 9.8 % (0.0-4.3); Hematocrit 34.7 % (35.5-45.6); Hemoglobin 11.6 gm/dl (11.8-15.2); Lymphocytes # (Auto) 1.1 K/mm3 (1.2-5.4); Lymphocytes % (Auto) 22.3 % (13.4-35.0); Mean Corpuscular HGB Conc 34 % (32-34); Mean Corpuscular Hemoglobin 32 pg (28-32); Mean Corpuscular Volume 96 fl (84-94); Monocytes # (Auto) 0.6 K/mm3 (0.0-0.8); Monocytes % (Auto) 12.9 % (0.0-7.3); Platelet Count 264 K/mm3 (140-440); Red Blood Count 3.63 M/mm3 (3.65-5.03); Red Cell Distribution Width 15.5 % (13.2-15.2)
[2017-11-29 10:30] LABS: INR 0.95 (0.87-1.13)
--- NOTE | 2017-11-29 10:35 | XRay Report ---
AP CHEST: HISTORY: Shortness of breath AP view of the chest demonstrates a normal mediastinal and cardiac contour with clear lungs and normal bony and soft tissue structures. IMPRESSION: Unremarkable AP chest. No change since 02/06/17.
[2017-11-29 10:36] LABS: BUN/Creatinine Ratio 39; Blood Urea Nitrogen 35 mg/dL (9-20); Calcium 9.4 mg/dL (8.4-10.2); Hemolysis Index 5
[2017-11-29 10:37] LABS: Creatine Kinase MB 1.2 ng/mL (0.0-4.0)
[2017-11-29 10:39] LABS: Alanine Aminotransferase 10 units/L (7-56); Albumin 3.7 g/dL (3.9-5); Bilirubin,Direct < 0.2 mg/dL (0-0.2)
[2017-11-29] MEDS ORDERED: NACL 0.9% 1000 ML 1,000 ML IV ONE (13:14)
[2017-11-29 14:50] VITALS: BP 112/87
== END 2017-11-29 15:45 | disposition home or self-care (01) ==
LOC: ED 07:45
DX: E86.9 Volume depletion, unspecified (principal); R79.89 Other specified abnormal findings of blood chemistry; G30.9 Alzheimer's disease, unspecified; F02.81 Dementia in other diseases classified elsewhere, unspecified severity, with behavioral disturbance; I10 Essential (primary) hypertension; E11.9 Type 2 diabetes mellitus without complications
CPT/HCPCS: 36415; 71045; 80048; 80074; 82550; 82553; 82962; 83735; 83880; 84484; 85025; 85610; 85730; 93005; 93010; 96360

== ENCOUNTER 2018-11-22 16:06 | Inpatient (IN) | payer MEDICARE ==
[2018-11-22 17:33] LABS: Basophils # (Auto) 0.1 K/mm3 (0.0-0.1); Basophils % (Auto) 0.6 % (0.0-1.8); Eosinophils # (Auto) 0.3 K/mm3 (0.0-0.4); Eosinophils % (Auto) 2.7 % (0.0-4.3); Hematocrit 35.5 % (35.5-45.6); Hemoglobin 11.6 gm/dl (11.8-15.2); Lymphocytes # (Auto) 1.3 K/mm3 (1.2-5.4); Lymphocytes % (Auto) 11.8 % (13.4-35.0); Mean Corpuscular HGB Conc 33 % (32-34); Mean Corpuscular Volume 96 fl (84-94); Monocytes # (Auto) 0.8 K/mm3 (0.0-0.8); Monocytes % (Auto) 7.5 % (0.0-7.3); Platelet Count 366 K/mm3 (140-440); Red Blood Count 3.69 M/mm3 (3.65-5.03); Red Cell Distribution Width 14.2 % (13.2-15.2)
--- NOTE | 2018-11-22 17:48 | XRay Report ---
FINAL REPORT EXAM: XR CHEST 1V AP HISTORY: CP TECHNIQUE: Frontal chest radiograph. PRIORS: None. FINDINGS: Aortic calculi are seen. The cardiomediastinal silhouette is normal. No focal consolidation. No pleural effusion. No pneumothorax. No acute osseous abnormality. IMPRESSION: No acute cardiopulmonary process.
[2018-11-22 17:51] LABS: BUN/Creatinine Ratio 28; Blood Urea Nitrogen 25 mg/dL (9-20); Calcium 9.6 mg/dL (8.4-10.2); Hemolysis Index 3
[2018-11-22] MEDS ORDERED: BABY ASPIRIN PO ONE (17:58)
[2018-11-22 18:03] LABS: INR 0.9 (0.87-1.13)
[2018-11-22 18:04] LABS: Partial Thromboplastin Time 30.7 Sec. (24.2-36.6)
[2018-11-22] MEDS ORDERED: ZOFRAN IV ONE (18:32)
[2018-11-22 18:44] LABS: HDL Cholesterol 55 mg/dL (40-59); LDL Cholesterol,Direct 42 mg/dL (50-130)
--- NOTE | 2018-11-22 19:27 | Emergency Department Report ---
HPI - General Chief Complaint: Chest Pain Time Seen by Provider: 11/22/18 16:34 - HPI HPI: 68-year-old -[place] male presents to the emergency department via EMS from his adult daycare with the complaint of some chest pain. The patient had some generalized chest pain earlier that has since resolved. He is currently a [facility] O [address] but not time. 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 The patient is a poor historian. It does not appear that the pat ient received any treatment prior to arrival. ED Past Medical Hx - Past Medical History Previous Medical History?: Yes Hx Hypertension: Yes Hx CVA: Yes (x3; right sided weakness) Hx Diabetes: Yes Hx Arthritis: Yes (hands) Hx Dementia: Yes Hx HIV: No Additional medical history: Alzheimer's - Surgical History Past Surgical History?: Yes Additional Surgical History: Cataracts - Social History Smoking Status: Former Smoker Substance Use Type: None - Medications Home Medications: Home Medications Medication Instructions Recorded Confirmed Last Taken Type Citalopram [celeXA] 40 mg PO QDAY 07/08/16 11/29/17 07/08/16 History amLODIPine [Norvasc] 5 mg PO DAILY 07/08/16 11/29/17 07/08/16 History Restasis 0.05% 1 drops OD BID 07/09/16 11/29/17 07/08/16 History traZODone [Desyrel] 150 mg PO QHS 02/06/17 11/29/17 Unknown History Donepezil [Aricept] 10 mg PO QHS #30 tablet 02/10/17 11/29/17 Unknown Rx AtorvaSTATin [Lipitor] 40 mg PO QHS 11/29/17 11/29/17 Unknown History Clopidogrel [Plavix] 75 mg PO QDAY 11/29/17 11/29/17 Unknown History Lidocaine [Lidoderm] 1 each TP DAILY 11/29/17 11/29/17 Unknown History Lisinopril [Zestril] 40 mg PO DAILY 11/29/17 11/29/17 Unknown History Memantine HCl [Namenda Xr] 28 mg PO DAILY 11/29/17 11/29/17 Unknown History Tamsulosin [Flomax] 0.4 mg PO QHS 11/29/17 11/29/17 Unknown History Tizanidine HCl [tiZANidine] 2 mg PO QHS 11/29/17 11/29/17 Unknown History levETIRAcetam [Keppra] 500 mg PO BID 11/29/17 11/29/17 Unknown History metFORMIN [Glucophage] 500 mg PO BID 11/29/17 11/29/17 Unknown History traMADol [Ultram 50 MG tab] 50 mg PO BID 11/29/17 11/29/17 Unknown History ED Review of Systems ROS: Stated complaint: CHEST PAIN Other details as noted in HPI Comment: Unobtainable due to pts medical conditions Physical Exam - Physical Exam Vital Signs: Vital Signs 11/22/18 11/22/18 11/22/18 16:20 16:21 16:26 Temperature 98.5 F Pulse Rate 61 57 L Respiratory 14 16 16 Rate Blood Pressure 132/60 O2 Sat by Pulse 96 96 Oximetry 11/22/18 11/22/18 11/22/18 16:30 16:45 17:00 Temperature Pulse Rate 60 58 L 57 L Respiratory 14 22 18 Rate Blood Pressure 125/58 121/57 120/59 O2 Sat by Pulse 96 95 97 Oximetry 11/22/18 11/22/18 11/22/18 17:15 17:30 17:45 Temperature Pulse Rate 58 L 58 L 63 Respiratory 16 19 12 Rate Blood Pressure 117/57 127/62 120/62 O2 Sat by Pulse 99 96 100 Oximetry 11/22/18 11/22/18 11/22/18 18:00 18:16 18:30 Temperature Pulse Rate 65 69 68 Respiratory 11 L 14 13 Rate Blood Pressure 116/65 126/93 126/93 O2 Sat by Pulse 96 100 99 Oximetry 11/22/18 18:45 Temperature Pulse Rate Respiratory Rate Blood Pressure 127/72 O2 Sat by Pulse 99 Oximetry Physical Exam: GENERAL: The patient is well-developed well-nourished. HEENT: Normocephalic. Atraumatic. Patient has moist mucous membranes. EYES: Extraocular motions are intact. Pupils are equal and reactive to light bilaterally. NECK: Supple. Trachea is midline. CHEST/LUNGS: Clear to auscultation. There is no respiratory distress noted. HEART/CARDIOVASCULAR: Regular. There is no tachycardia. There is no obvious murmur. ABDOMEN: Abdomen is soft, nontender. Patient has normal bowel sounds. There is no abdominal distention. SKIN: Skin is warm and dry. NEURO: The patient is awake, alert. AAO x 2. Follow some commands. Withdraws from painful stimuli. MUSCULOSKELETAL: There is no tenderness or deformity. There is no evidence of acute injury. ED Course Vital Signs 11/22/18 11/22/18 11/22/18 16:20 16:21 16:26 Temperature 98.5 F Pulse Rate 61 57 L Respiratory 14 16 16 Rate Blood Pressure 132/60 O2 Sat by Pulse 96 96 Oximetry 11/22/18 11/22/18 11/22/18 16:30 16:45 17:00 Temperature Pulse Rate 60 58 L 57 L Respiratory 14 22 18 Rate Blood Pressure 125/58 121/57 120/59 O2 Sat by Pulse 96 95 97 Oximetry 11/22/18 11/22/18 11/22/18 17:15 17:30 17:45 Temperature Pulse Rate 58 L 58 L 63 Respiratory 16 19 12 Rate Blood Pressure 117/57 127/62 120/62 O2 Sat by Pulse 99 96 100 Oximetry 11/22/18 11/22/18 11/22/18 18:00 18:16 18:30 Temperature Pulse Rate 65 69 68 Respiratory 11 L 14 13 Rate Blood Pressure 116/65 126/93 126/93 O2 Sat by Pulse 96 100 99 Oximetry 11/22/18 18:45 Temperature Pulse Rate Respiratory Rate Blood Pressure 127/72 O2 Sat by Pulse 99 Oximetry ED Medical Decision Making - Lab Data Result diagrams: 11/22/18 22:26 11/22/18 22:26 - EKG Data -: EKG Interpreted by Me EKG shows normal: sinus rhythm, axis, intervals, QRS complexes, ST-T waves (there is some flattening of the T waves to the lateral leads V6 and one) Rate: bradycardia (56 bpm) - EKG Data When compared to previous EKG there are: previous EKG unavailable Interpretation: other (sinus rhythm, bradycardia 56 minute, some flattening of the T waves to the high lateral leads) - Radiology Data Radiology results: report reviewed, image reviewed interpreted by me: Chest x-ray does not show any pneumothorax, pleural effusion, pneumonia or obvious focal consolidation. PROCEDURE: CT ANGIO CHEST TECHNIQUE: Computerized tomographic angiography of the chest was performed during the IV injection of iodinated nonionic contrast including image processing. The image data was postprocessed using 2- dimensional multiplanar reformatted (MPR) and 3-dimensional (MIP and/or volume rendered) techniques. HISTORY: CP, elevated dimer. Evaluate pulmonary embolus COMPARISON: No prior studies are available for comparison. FINDINGS: Pulmonary outflow tract, right and left main pulmonary arteries and their proximal branches: Clear, no filling defects seen to suggest pulmonary embolus. Pericardium: No evidence of pericardial effusion. Thoracic aorta: No evidence of aneurysmal dilatation or dissection. Coronary arteries: Are partially calcified indicating atherosclerotic disease. Mediastinum and hilar regions: Nonspecific subcentimeter lymph nodes are visualized. No pathologically enlarged lymph nodes or masses are identified. Lung Shelby: Minimal dependent atelectasis. Lungs otherwise are clear. Upper abdomen: No acute or focal abnormality is seeen. Other: No acute bony abnormalities are visualized. IMPRESSION: No evidence of pulmonary embolus. Atherosclerosis coronary arteries. Minimal dependent atelectasis. No other abnormalities are seen. PROCEDURE: CT abdomen and pelvis with contrast. TECHNIQUE: Computerized axial tomography of the abdomen and pelvis was performed after the IV injection of iodinated nonionic contrast. HISTORY: Abdominal pain. COMPARISON: CT abdomen and pelvis 07/08/2016. FINDINGS: The lung bases are clear. There are no pleural effusions. The heart size is normal. The liver, pancreas and spleen appear normal. The gallbladder is contracted. There is no biliary dilatation. The adrenal glands are not enlarged. There are several right renal cysts. There is a very large cyst in the upper pole measuring 6.7 centimeters in diameter. The abdominal aorta is mildly ectatic with extensive atherosclerotic calcification. There is dense atherosclerotic calcification in the iliac arteries as well. There is no retroperitoneal adenopathy. The unopacified gastrointestinal tract is unremarkable. A normal appendix is visible. There is a large volume of stool in the rectosigmoid colon. The bladder is empty. The prostate is unremarkable. The regional skeleton appears intact. There is severe disc space narrowing at L5-S1. IMPRESSION: Multiple right renal cysts. Atherosclerosis. Possible fecal impaction. Transcribed By: HUANG Dictated By: LUDIVINA SHIELDS MD Electronically Authenticated By: LUDIVINA SHIELDS MD Signed Date/Time: 11/22/18 4770 - Medical Decision Making Patient presents from his adult daycare with complaint of some chest pain that occurred earlier but apparently has since resolved. While he was here he also complained of some abdominal pain. Patient is a poor historian secondary to his previous medical conditions. EKG did not show any signs of ST elevation NM. His first troponin was elevated at 0.034 but they trended downwards after that. He was given an aspirin to protect his heart. Chest x-ray did not show any focal consolidation, pneumothorax, pneumonia, pleural effusions, or any other acute process. He did have an elevated d-dimer so a CT angiography of the chest was done but it did not show any pulmonary embolism, dissection or any other acute process. Patient will be admitted to the hospital for his chest pain for further evaluation and was excepted for admission by the hospitalist service. - Differential Diagnosis NM, PE, costochondritis, GERD Critical Care Time: No Critical care attestation.: If time is entered above; I have spent that time in minutes in the direct care of this critically ill patient, excluding procedure time. ED Disposition Clinical Impression: Acute chest pain, Elevated troponin Disposition: OP ADMIT IP TO THIS HOSP Is pt being admited?: Yes Condition: Fair Time of Disposition: 19:53
--- NOTE | 2018-11-22 20:13 | Cat Scan Report ---
FINAL REPORT PROCEDURE: CT ANGIO CHEST TECHNIQUE: Computerized tomographic angiography of the chest was performed during the IV injection o f iodinated nonionic contrast including image processing. The image data was postprocessed using 2-di mensional multiplanar reformatted (MPR) and 3-dimensional (MIP and/or volume rendered) techniques. HISTORY: CP, elevated dimer. Evaluate pulmonary embolus COMPARISON: No prior studies are available for comparison. FINDINGS: Pulmonary outflow tract, right and left main pulmonary arteries and their proximal branches: Clear, n o filling defects seen to suggest pulmonary embolus. Pericardium: No evidence of pericardial effusion. Thoracic aorta: No evidence of aneurysmal dilatation or dissection. Coronary arteries: Are partially calcified indicating atherosclerotic disease. Mediastinum and hilar regions: Nonspecific subcentimeter lymph nodes are visualized. No pathologicall y enlarged lymph nodes or masses are identified. Lung Shelby: Minimal dependent atelectasis. Lungs otherwise are clear. Upper abdomen: No acute or focal abnormality is seeen. Other: No acute bony abnormalities are visualized. IMPRESSION: No evidence of pulmonary embolus. Atherosclerosis coronary arteries. Minimal dependent atelectasis. No other abnormalities are seen.
[2018-11-22] MEDS ORDERED: MORPHINE IV PRN (21:22)
[2018-11-22] MEDS ORDERED: TYLENOL PO PRN (21:22)
[2018-11-22] MEDS ORDERED: SODIUM CHLORIDE FLUSH SYRINGE 10 ML IV PRN (21:22)
[2018-11-22] MEDS ORDERED: AMBIEN PO PRN (21:22)
[2018-11-22] MEDS ORDERED: ZOFRAN IV PRN (21:22)
[2018-11-22] MEDS ORDERED: NITROSTAT SL PRN (21:32)
[2018-11-22] MEDS ORDERED: ZESTRIL PO SCH (22:00)
--- NOTE | 2018-11-22 22:32 | Cat Scan Report ---
FINAL REPORT PROCEDURE: CT abdomen and pelvis with contrast. TECHNIQUE: Computerized axial tomography of the abdomen and pelvis was performed after the IV inject ion of iodinated nonionic contrast. HISTORY: Abdominal pain. COMPARISON: CT abdomen and pelvis 07/08/2016. FINDINGS: The lung bases are clear. There are no pleural effusions. The heart size is normal. The liver, pancre as and spleen appear normal. The gallbladder is contracted. There is no biliary dilatation. The adren al glands are not enlarged. There are several right renal cysts. There is a very large cyst in the up per pole measuring 6.7 centimeters in diameter. The abdominal aorta is mildly ectatic with extensive atherosclerotic calcification. There is dense atherosclerotic calcification in the iliac arteries as well. There is no retroperitoneal adenopathy. The unopacified gastrointestinal tract is unremarkable. A normal appendix is visible. There is a large volume of stool in the rectosigmoid colon. The bladde r is empty. The prostate is unremarkable. The regional skeleton appears intact. There is severe disc space narrowing at L5-S1. IMPRESSION: Multiple right renal cysts. Atherosclerosis. Possible fecal impaction.
[2018-11-22 22:51] LABS: Basophils # (Auto) 0.1 K/mm3 (0.0-0.1); Basophils % (Auto) 0.6 % (0.0-1.8); Eosinophils # (Auto) 0.3 K/mm3 (0.0-0.4); Eosinophils % (Auto) 3.2 % (0.0-4.3); Hematocrit 35.8 % (35.5-45.6); Hemoglobin 11.8 gm/dl (11.8-15.2); Lymphocytes # (Auto) 1.5 K/mm3 (1.2-5.4); Lymphocytes % (Auto) 16.7 % (13.4-35.0); Mean Corpuscular HGB Conc 33 % (32-34); Mean Corpuscular Volume 96 fl (84-94); Monocytes # (Auto) 0.7 K/mm3 (0.0-0.8); Monocytes % (Auto) 7.5 % (0.0-7.3); Platelet Count 346 K/mm3 (140-440); Red Blood Count 3.72 M/mm3 (3.65-5.03)
[2018-11-22 23:17] LABS: BUN/Creatinine Ratio 29; Blood Urea Nitrogen 20 mg/dL (9-20); Calcium 9.5 mg/dL (8.4-10.2); Hemolysis Index 7
[2018-11-22] MEDS ORDERED: AMBIEN ONE (23:19)
--- NOTE | 2018-11-22 23:58 | History and Physical Report ---
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 Pt resides in an adult daycare facility, pt cannot provide accurate medical history due to mental illness, most of the history was obtained from the chart and ER notes. According to EMS, pt has been c/o chest pain chest pain since earlier in the day, which was resolved. He continues to complaints of chest pain this evening, he was sent to the ER for evaluation. In the ER, pt's CPK was 689, his trop was 0.013 and 0.016 respectively, his EKG showed no STEMI elevation, pt is admitted for further evaluation of his chest pain Past History Past Medical History: arthritis, CAD, hypertension, hyperlipidemia Past Surgical History: No surgical history Social history: no significant social history Family history: no significant family history Medications and Allergies Allergies Allergy/AdvReac Type Severity Reaction Status Date / Time No Known Allergies Allergy Unverified 07/08/16 17:08 Home Medications Medication Instructions Recorded Confirmed Last Taken Type Citalopram [celeXA] 40 mg PO QDAY 07/08/16 11/29/17 07/08/16 History amLODIPine [Norvasc] 5 mg PO DAILY 07/08/16 11/29/17 07/08/16 History Restasis 0.05% 1 drops OD BID 07/09/16 11/29/17 07/08/16 History traZODone [Desyrel] 150 mg PO QHS 02/06/17 11/29/17 Unknown History Donepezil [Aricept] 10 mg PO QHS #30 tablet 02/10/17 11/29/17 Unknown Rx AtorvaSTATin [Lipitor] 40 mg PO QHS 11/29/17 11/29/17 Unknown History Clopidogrel [Plavix] 75 mg PO QDAY 11/29/17 11/29/17 Unknown History Lidocaine [Lidoderm] 1 each TP DAILY 11/29/17 11/29/17 Unknown History Lisinopril [Zestril] 40 mg PO DAILY 11/29/17 11/29/17 Unknown History Memantine HCl [Namenda Xr] 28 mg PO DAILY 11/29/17 11/29/17 Unknown History Tamsulosin [Flomax] 0.4 mg PO QHS 11/29/17 11/29/17 Unknown History Tizanidine HCl [tiZANidine] 2 mg PO QHS 11/29/17 11/29/17 Unknown History levETIRAcetam [Keppra] 500 mg PO BID 11/29/17 11/29/17 Unknown History metFORMIN [Glucophage] 500 mg PO BID 11/29/17 11/29/17 Unknown History traMADol [Ultram] 50 mg PO BID 11/29/17 11/29/17 Unknown History Active Meds: Active Medications Acetaminophen (Tylenol) 650 mg PO Q4H PRN PRN Reason: Pain MILD(1-3)/Fever >100.5/NEIL Aspirin (Ecotrin) 325 mg PO QDAY [facility] Atorvastatin Calcium (Lipitor) 20 mg PO QHS [facility] Famotidine (Pepcid) 20 mg IV BID [facility] Lisinopril (Zestril) 5 mg PO QDAY [facility] Morphine Sulfate (Morphine) 2 mg IV Q4H PRN PRN Reason: Pain, Moderate (4-6) Nitroglycerin (Nitrostat) 0.4 mg SL Q5M PRN PRN Reason: Chest Pain Ondansetron HCl (Zofran) 4 mg IV Q8H PRN PRN Reason: Nausea And Vomiting Sodium Chloride (Sodium Chloride Flush Syringe 10 Ml) 10 ml IV BID [facility] Sodium Chloride (Sodium Chloride Flush Syringe 10 Ml) 10 ml IV PRN PRN PRN Reason: LINE FLUSH Zolpidem Tartrate (Ambien) 5 mg PO QHS PRN PRN Reason: Insomnia Last Admin: 11/22/18 23:25 Dose: 5 mg Documented by: Review of Systems ROS unobtainable: due to mental status (Is limited due to mental capacity) Exam - Constitutional Vitals: Temp Pulse Resp BP Pulse Ox 98.5 F 76 18 125/68 92 11/22/18 23:47 11/22/18 23:47 11/22/18 23:47 11/22/18 23:47 11/22/18 23:47 General appearance: Present: mild distress - EENT Eyes: Present: EOM intact ENT: hearing intact - Neck Neck: Present: normal ROM - Respiratory Respiratory effort: normal Respiratory: bilateral: CTA - Cardiovascular Rhythm: regular - Extremities Extremities: no ischemia Peripheral Pulses: within normal limits - Abdominal General gastrointestinal: Present: non-tender, non-distended Male genitourinary: Present: deferred - Rectal Rectal Exam: deferred - Integumentary Integumentary: Present: clear, warm, dry - Musculoskeletal Musculoskeletal: generalized weakness - Psychiatric Psychiatric: cooperative Results - Labs CBC & Chem 7: 11/22/18 22:26 11/22/18 22:26 Labs: Laboratory Last Values WBC 8.8 K/mm3 (4.5-11.0) 11/22/18 22: RBC 3.72 M/mm3 (3.65-5.03) 11/22/18 22: Hgb 11.8 gm/dl (11.8-15.2) 11/22/18 22: Hct 35.8 % (35.5-45.6) 11/22/18 22:26 MCV 96 fl (84-94) H 11/22/18 22:26 MCH 32 pg (28-32) 11/22/18 22: MCHC 33 % (32-34) 11/22/18 22: RDW 14.0 % (13.2-15.2) 11/22/18 22: Plt Count 346 K/mm3 (140-440) 11/22/18 22:26 Lymph % (Auto) 16.7 % (13.4-35.0) 11/22/18 22:26 Mcclain % (Auto) 7.5 % (0.0-7.3) H 11/22/18 22: Eos % (Auto) 3.2 % (0.0-4.3) 11/22/18 22: Baso % (Auto) 0.6 % (0.0-1.8) 11/22/18 22: Lymph # 1.5 K/mm3 (1.2-5.4) 11/22/18 22: Mcclain # 0.7 K/mm3 (0.0-0.8) 11/22/18 22: Eos # 0.3 K/mm3 (0.0-0.4) 11/22/18 22:26 Baso # 0.1 K/mm3 (0.0-0.1) 11/22/18 22:26 Seg Neutrophils % 72.0 % (40.0-70.0) H 11/22/18 22:26 Seg Neutrophils # 6.3 K/mm3 (1.8-7.7) 11/22/18 22:26 PT 12.5 Sec. (12.2-14.9) 11/22/18 16:48 INR 0.90 (0.87-1.13) 11/22/18 16:48 APTT 30.7 Sec. (24.2-36.6) 11/22/18 16:48 D-Dimer 581.86 ng/mlDDU (0-234) H 11/22/18 16:48 Sodium 137 mmol/L (137-145) 11/22/18 22:26 Potassium 4.2 mmol/L (3.6-5.0) 11/22/18 22:26 Chloride 97.3 mmol/L (98-107) L 11/22/18 22:26 Carbon Dioxide 30 mmol/L (22-30) 11/22/18 22:26 Anion Gap 14 mmol/L 11/22/18 22:26 BUN 20 mg/dL (9-20) 11/22/18 22:26 Creatinine 0.7 mg/dL (0.8-1.5) L 11/22/18 22:26 Estimated GFR > 60 ml/min 11/22/18 22:26 BUN/Creatinine Ratio 29 % 11/22/18 22:26 Glucose 97 mg/dL (75-100) 11/22/18 22:26 Calcium 9.5 mg/dL (8.4-10.2) 11/22/18 22:26 Troponin T 0.013 ng/mL (0.00-0.029) 11/22/18 22:26 Triglycerides 82 mg/dL (2-149) 11/22/18 16:48 Cholesterol 105 mg/dL (50-199) 11/22/18 16:48 LDL Cholesterol Direct 42 mg/dL (50-130) L 11/22/18 16:48 HDL Cholesterol 55 mg/dL (40-59) 11/22/18 16:48 Cholesterol/HDL Ratio 1.90 % 11/22/18 16:48 Assessment and Plan Assessment and plan: 1. ACS with elevated CE 2. HTN 3. DM type 2 6. CVA 3 with exs weakness 7. Dementia 8. Mental disability 9. Osteoarthritis [facility] cardiology for evaluation Continue CE Q6hr x2 more Nitro PRN for chest pain Repeat EKG in am Morphine PRN for chest pain Ativan PRN for anxiety/restlessness Resume home meds Further plan per cardiology recommendations and hospital course Pt's condition and plan of care was d/w Dr Muhammad Advance Directives: Yes VTE prophylaxis?: Mechanical Plan of care discussed with patient/family: Yes <HANS MUHAMMAD - Last Filed: 11/23/18 06:08> History of Present Illness Date of admission: 11/22/18 21:22 Medications and Allergies Active Meds: Active Medications Acetaminophen (Tylenol) 650 mg PO Q4H PRN PRN Reason: Pain MILD(1-3)/Fever >100.5/NEIL Aspirin (Ecotrin) 325 mg PO QDAY [facility] Atorvastatin Calcium (Lipitor) 20 mg PO QHS [facility] Last Admin: 11/23/18 00:42 Dose: 20 mg Documented by: Famotidine (Pepcid) 20 mg IV BID [facility] Last Admin: 11/23/18 00:42 Dose: 20 mg Documented by: Lisinopril (Zestril) 5 mg PO QDAY [facility] Last Admin: 11/23/18 00:42 Dose: 5 mg Documented by: Nitroglycerin (Nitrostat) 0.4 mg SL Q5M PRN PRN Reason: Chest Pain Ondansetron HCl (Zofran) 4 mg IV Q8H PRN PRN Reason: Nausea And Vomiting Sodium Chloride (Sodium Chloride Flush Syringe 10 Ml) 10 ml IV BID [facility] Last Admin: 11/23/18 00:43 Dose: 10 ml Documented by: Sodium Chloride (Sodium Chloride Flush Syringe 10 Ml) 10 ml IV PRN PRN PRN Reason: LINE FLUSH Zolpidem Tartrate (Ambien) 5 mg PO QHS PRN PRN Reason: Insomnia Last Admin: 11/22/18 23:25 Dose: 5 mg Documented by: Exam - Constitutional Vitals: Temp Pulse Resp BP Pulse Ox 98.4 F 57 L 12 132/69 100 11/23/18 04:32 11/23/18 04:32 11/23/18 04:32 11/23/18 04:32 11/23/18 04:32 Results - Labs CBC & Chem 7: 11/22/18 22:26 11/22/18 22:26 Labs: Laboratory Last Values WBC 8.8 K/mm3 (4.5-11.0) 11/22/18 22: RBC 3.72 M/mm3 (3.65-5.03) 11/22/18 22:26 Hgb 11.8 gm/dl (11.8-15.2) 11/22/18 22: Hct 35.8 % (35.5-45.6) 11/22/18 22: MCV 96 fl (84-94) H 11/22/18 22: MCH 32 pg (28-32) 11/22/18 22: MCHC 33 % (32-34) 11/22/18 22: RDW 14.0 % (13.2-15.2) 11/22/18 22: Plt Count 346 K/mm3 (140-440) 11/22/18 22: Lymph % (Auto) 16.7 % (13.4-35.0) 11/22/18 22: Mcclain % (Auto) 7.5 % (0.0-7.3) H 11/22/18 22: Eos % (Auto) 3.2 % (0.0-4.3) 11/22/18 22: Baso % (Auto) 0.6 % (0.0-1.8) 11/22/18 22: Lymph # 1.5 K/mm3 (1.2-5.4) 11/22/18 22: Mcclain # 0.7 K/mm3 (0.0-0.8) 11/22/18 22: Eos # 0.3 K/mm3 (0.0-0.4) 11/22/18 22: Baso # 0.1 K/mm3 (0.0-0.1) 11/22/18 22: Seg Neutrophils % 72.0 % (40.0-70.0) H 11/22/18 22: Seg Neutrophils # 6.3 K/mm3 (1.8-7.7) 11/22/18 22:26 PT 12.5 Sec. (12.2-14.9) 11/22/18 16:48 INR 0.90 (0.87-1.13) 11/22/18 16:48 APTT 30.7 Sec. (24.2-36.6) 11/22/18 16:48 D-Dimer 581.86 ng/mlDDU (0-234) H 11/22/18 16:48 Sodium 137 mmol/L (137-145) 11/22/18 22:26 Potassium 4.2 mmol/L (3.6-5.0) 11/22/18 22:26 Chloride 97.3 mmol/L (98-107) L 11/22/18 22:26 Carbon Dioxide 30 mmol/L (22-30) 11/22/18 22:26 Anion Gap 14 mmol/L 11/22/18 22:26 BUN 20 mg/dL (9-20) 11/22/18 22:26 Creatinine 0.7 mg/dL (0.8-1.5) L 11/22/18 22:26 Estimated GFR > 60 ml/min 11/22/18 22:26 BUN/Creatinine Ratio 29 % 11/22/18 22:26 Glucose 97 mg/dL (75-100) 11/22/18 22:26 POC Glucose 82 (70-105) 11/23/18 05:55 Calcium 9.5 mg/dL (8.4-10.2) 11/22/18 22:26 Total Creatine Kinase 689 units/L (55-170) H 11/23/18 02:05 CK-MB (CK-2) 5.2 ng/mL (0.0-4.0) H 11/23/18 02:05 CK-MB (CK-2) Rel Index 0.7 (0-4) 11/23/18 02:05 Troponin T 0.013 ng/mL (0.00-0.029) 11/22/18 22:26 Triglycerides 82 mg/dL (2-149) 11/22/18 16:48 Cholesterol 105 mg/dL (50-199) 11/22/18 16:48 LDL Cholesterol Direct 42 mg/dL (50-130) L 11/22/18 16:48 HDL Cholesterol 55 mg/dL (40-59) 11/22/18 16:48 Cholesterol/HDL Ratio 1.90 % 11/22/18 16:48 Assessment and Plan Assessment and plan: Patient seen and examined with nurse practitioner. History was obtained from the chart, the patient is unable to give a history This is a 68-year-old man with a history of hypertension, diabetes, hyperlipidemia, dementia was sent to the emergency room for evaluation of chest pain. The patient does not know why he is here. Agree with the plan as discussed above, his physical exam is benign, in addition to restart his outpatient medications. Check fingersticks and initiate insulin sliding scale
[2018-11-23] MEDS: PEPCID IV SCH ×3 (00:42→22:33)
[2018-11-23] MEDS: SODIUM CHLORIDE FLUSH SYRINGE 10 ML IV SCH ×3 (00:43→23:07)
[2018-11-23 02:37] LABS: Creatine Kinase MB 5.2 ng/mL (0.0-4.0)
[2018-11-23] MEDS ORDERED: D50W (25GM) Syringe IV PRN (06:07)
[2018-11-23] MEDS: HumaLOG SUB-Q SCH ×4 (09:01→23:07)
--- NOTE | 2018-11-23 09:33 | Consultation ---
History of Present Illness Consult date: 11/23/18 Consult reason: chest pain History of present illness: Pt is a 68 year BM with PMHx if multiple CVAs, dementia, diabetes, hypertension, mental disability who was brought to the ER due to reported chest pain. It is unclear how this history of chest pain was obtained as patient is currently not able to provide any meaningful history. He appears comfortable but is not able to tell me if he is having any chest pain or dyspnea. His troponin levels have been borderline but total CK is elevated with CK/CKMB ratio suggestive of non- cardiac origin such as rhabdomyolysis. ECG reveals sinus bradycardia and is otherwise unremarkable. Past History Past Medical History: arthritis, hypertension, hyperlipidemia Social history: no significant social history Family history: no significant family history Medications and Allergies Allergies Allergy/AdvReac Type Severity Reaction Status Date / Time No Known Allergies Allergy Unverified 07/08/16 17:08 Home Medications Medication Instructions Recorded Confirmed Last Taken Type Citalopram [celeXA] 40 mg PO QDAY 07/08/16 11/29/17 07/08/16 History amLODIPine [Norvasc] 5 mg PO DAILY 07/08/16 11/29/17 07/08/16 History Restasis 0.05% 1 drops OD BID 07/09/16 11/29/17 07/08/16 History traZODone [Desyrel] 150 mg PO QHS 02/06/17 11/29/17 Unknown History Donepezil [Aricept] 10 mg PO QHS #30 tablet 02/10/17 11/29/17 Unknown Rx AtorvaSTATin [Lipitor] 40 mg PO QHS 11/29/17 11/29/17 Unknown History Clopidogrel [Plavix] 75 mg PO QDAY 11/29/17 11/29/17 Unknown History Lidocaine [Lidoderm] 1 each TP DAILY 11/29/17 11/29/17 Unknown History Lisinopril [Zestril] 40 mg PO DAILY 11/29/17 11/29/17 Unknown History Memantine HCl [Namenda Xr] 28 mg PO DAILY 11/29/17 11/29/17 Unknown History Tamsulosin [Flomax] 0.4 mg PO QHS 11/29/17 11/29/17 Unknown History Tizanidine HCl [tiZANidine] 2 mg PO QHS 11/29/17 11/29/17 Unknown History levETIRAcetam [Keppra] 500 mg PO BID 11/29/17 11/29/17 Unknown History metFORMIN [Glucophage] 500 mg PO BID 11/29/17 11/29/17 Unknown History traMADol [Ultram] 50 mg PO BID 11/29/17 11/29/17 Unknown History Active Meds: Active Medications Acetaminophen (Tylenol) 650 mg PO Q4H PRN PRN Reason: Pain MILD(1-3)/Fever >100.5/NEIL Amlodipine Besylate (Norvasc) 5 mg PO DAILY [facility] Atorvastatin Calcium (Lipitor) 40 mg PO QHS [facility] Citalopram Hydrobromide (Celexa) 40 mg PO QDAY [facility] Clopidogrel Bisulfate (Plavix) 75 mg PO QDAY [facility] Dextrose (D50w (25gm) Syringe) 50 ml IV PRN PRN PRN Reason: Hypoglycemia Donepezil HCl (Aricept) 10 mg PO QHS [facility] Famotidine (Pepcid) 20 mg IV BID [facility] Last Admin: 11/23/18 00:42 Dose: 20 mg Documented by: Insulin Human Lispro (Humalog) 0 unit SUB-Q [facility]; Protocol Last Admin: 11/23/18 09:01 Dose: Not Given Documented by: Levetiracetam (Keppra) 500 mg PO BID [facility] Lidocaine (Lidoderm 5%) 1 each TD DAILY [facility] Lisinopril (Zestril) 40 mg PO DAILY [facility] Miscellaneous Medication (Memantine Hcl [Namenda Xr]) 28 mg PO DAILY [facility] Miscellaneous Medication (Restasis 0.05%) 1 drops OD BID [facility] Ondansetron HCl (Zofran) 4 mg IV Q8H PRN PRN Reason: Nausea And Vomiting Sodium Chloride (Sodium Chloride Flush Syringe 10 Ml) 10 ml IV BID [facility] Last Admin: 11/23/18 00:43 Dose: 10 ml Documented by: Sodium Chloride (Sodium Chloride Flush Syringe 10 Ml) 10 ml IV PRN PRN PRN Reason: LINE FLUSH Tamsulosin HCl (Flomax) 0.4 mg PO QHS [facility] Tizanidine HCl (Zanaflex) 2 mg PO QHS [facility] Review of Systems ROS unobtainable: due to mental status Physical Examination Vital Signs Pulse Resp 61 14 11/22/18 16:20 11/22/18 16:20 HEENT: Positive: PERRL Neck: Positive: neck supple Cardiac: Positive: Reg Rate and Rhythm Lungs: Positive: clear to auscultation Abdomen: Positive: Soft, Active Bowel Sounds Extremities: Absent: edema Results 11/22/18 22:26 11/22/18 22:26 Cardiac Enzymes 11/23/18 Range/Units 02:05 CK-MB (CK-2) 5.2 H (0.0-4.0) ng/mL Coagulation 11/22/18 Range/Units 16:48 PT 12.5 (12.2-14.9) Sec. INR 0.90 (0.87-1.13) APTT 30.7 (24.2-36.6) Sec. Lipids 11/22/18 Range/Units 16:48 Triglycerides 82 (2-149) mg/dL Cholesterol 105 (50-199) mg/dL HDL Cholesterol 55 (40-59) mg/dL Cholesterol/HDL Ratio 1.90 % CBC 11/22/18 11/22/18 Range/Units 16:48 22:26 WBC 11.0 8.8 (4.5-11.0) K/mm3 RBC 3.69 3.72 (3.65-5.03) M/mm3 Hgb 11.6 L 11.8 (11.8-15.2) gm/dl Hct 35.5 35.8 (35.5-45.6) % Plt Count 366 346 (140-440) K/mm3 Lymph # 1.3 1.5 (1.2-5.4) K/mm3 Towns # 0.8 0.7 (0.0-0.8) K/mm3 Eos # 0.3 0.3 (0.0-0.4) K/mm3 Baso # 0.1 0.1 (0.0-0.1) K/mm3 Comprehensive Metabolic Panel 11/22/18 11/22/18 Range/Units 16:48 22:26 Sodium 140 137 (137-145) mmol/L Potassium 4.3 4.2 (3.6-5.0) mmol/L Chloride 99.5 97.3 L (98-107) mmol/L Carbon Dioxide 32 H 30 (22-30) mmol/L BUN 25 H 20 (9-20) mg/dL Creatinine 0.9 0.7 L (0.8-1.5) mg/dL Glucose 119 H 97 (75-100) mg/dL Calcium 9.6 9.5 (8.4-10.2) mg/dL Assessment and Plan Reported episode of chest pain. Patient is not currently able to provide any meaningful history No biomarker or ECG evidence for ACS Mental disability Dementia DM CVA Recommend: No current evidence for ACS. In the absence of further symptoms, I do not recommend further inpatient cardiac testing.
[2018-11-23] MEDS ORDERED: NON-FORMULARY (Memantine Hcl [Namenda Xr] 28 MG) PO SCH (10:00)
[2018-11-23] MEDS ORDERED: ECOTRIN PO SCH (10:00)
[2018-11-23] MEDS ORDERED: RESTASIS 0.05% OD SCH (10:00)
[2018-11-23] MEDS: celeXA PO SCH (10:40)
[2018-11-23] MEDS: KEPPRA PO SCH ×2 (10:40→22:33)
[2018-11-23] MEDS: LIDODERM 5% TD SCH (10:40)
[2018-11-23] MEDS: NORVASC PO SCH (10:41)
[2018-11-23] MEDS: ZESTRIL PO SCH (10:41)
[2018-11-23] MEDS: PLAVIX PO SCH (10:41)
[2018-11-23 10:52] LABS: Creatine Kinase MB 3.9 ng/mL (0.0-4.0)
--- NOTE | 2018-11-23 15:52 | Discharge Summary ---
Providers - Providers Date of Admission: 11/22/18 21:22 Date of discharge: 11/23/18 Attending physician: LIZABETH YOUSIF 11/22/18 Consult to Cardiac Rehabilitation [CONS] Routine Reason For Exam: Phase I 11/22/18 20:04 Consult to Cardiology [CONS] Routine Consulting Provider: RODY ORR Reason For Exam: elevated troponin, chest pain Primary care physician: [employer] [facility] Hospitalization Reason for admission: chest pain Condition: Fair Pertinent studies: Chest CTA; No evidence of pulmonary embolus. Atherosclerosis coronary arteries. Minimal dependent atelectasis. No other abnormalities are seen. CT abdoemn/pelvis: Multiple right renal cysts. Atherosclerosis. Possible fecal impaction. Hospital course: Discharge diagnosis: 1. atypical chest pain with elevated CE - no further cardiac workup by cardiology 2. HTN 3. DM type 2 6. CVA 3 with exs weakness 7. Dementia 8. Mental disability 9. Osteoarthritis 10. stool impaction, resolved Core Measure Documentation - Palliative Care Palliative Care/ Comfort Measures: Not Applicable - Core Measures Any of the following diagnoses?: history only Exam - Constitutional Vitals: Temp Pulse Resp BP Pulse Ox 97.9 F 75 18 143/82 99 11/23/18 11:56 11/23/18 11:56 11/23/18 11:56 11/23/18 11:56 11/23/18 11:56 Plan Activity: fall precautions Weight Bearing Status: Non-Weight Bearing Diet: per dietitian instruction Follow up with: PRIMARY MD ABHIJIT [Primary Care Provider] - 3-5 Days
[2018-11-23] MEDS: DULCOLAX PR SCH (17:51)
[2018-11-23] MEDS: MIRALAX 3350 PO SCH (22:33)
[2018-11-23] MEDS: FLOMAX PO SCH (22:33)
[2018-11-23] MEDS: ARICEPT PO SCH (22:33)
[2018-11-23] MEDS: ZANAFLEX PO SCH (22:33)
[2018-11-23] MEDS: COLACE PO SCH (22:33)
[2018-11-23] MEDS: NAMENDA PO SCH (23:07)
[2018-11-24] MEDS: HumaLOG SUB-Q SCH ×4 (07:30→23:06)
[2018-11-24] MEDS: celeXA PO SCH (12:26)
[2018-11-24] MEDS: ZESTRIL PO SCH (12:27)
[2018-11-24] MEDS: NAMENDA PO SCH ×2 (12:27→23:05)
[2018-11-24] MEDS: PLAVIX PO SCH (12:27)
[2018-11-24] MEDS: KEPPRA PO SCH ×2 (12:27→23:05)
[2018-11-24] MEDS: PEPCID IV SCH ×2 (12:28→23:05)
[2018-11-24] MEDS: NORVASC PO SCH (12:28)
[2018-11-24] MEDS: DULCOLAX PR SCH (12:28)
[2018-11-24] MEDS: LIDODERM 5% TD SCH (12:28)
[2018-11-24] MEDS: COLACE PO SCH ×2 (12:28→23:07)
[2018-11-24] MEDS: MIRALAX 3350 PO SCH ×2 (12:29→23:07)
[2018-11-24] MEDS: SODIUM CHLORIDE FLUSH SYRINGE 10 ML IV SCH ×2 (12:29→23:05)
--- NOTE | 2018-11-24 15:18 | Progress Note ---
Assessment and Plan 1. atypical chest pain with elevated CE - no further cardiac workup by cardiology 2. HTN, stable 3. DM type 2, SSI 6. CVA 3 with right hameparesis - wants rehab, will consult PT 7. Dementia, supportive care 8. Mental disability 9. Osteoarthritis 10. stool impaction on CT abdomen, place on stool softner Brief history: Pt is a 68 year BM with PMHx if multiple CVAs, dementia, diabetes, hypertension, mental disability who was brought to the ER due to reported chest pain. Cardiology followed the patient, ruled out ACS. wants for rehab. Subjective Date of service: 11/23/18 Interval history: Patient seen and examined denies any chest pain at bedside, wants rehab for the patient Objective - Constitutional Vitals: Vital Signs - 12hr 11/24/18 11/24/18 11/24/18 04:52 08:45 12:19 Temperature 98.0 F 98.3 F 98.0 F Pulse Rate 59 L 60 62 Respiratory 20 18 18 Rate Blood Pressure 130/74 139/75 128/69 O2 Sat by Pulse 95 96 90 Oximetry General appearance: Present: no acute distress - EENT Eyes: PERRL, EOM intact ENT: hearing intact, clear oral mucosa Ears: bilateral: normal - Neck Neck: supple, normal ROM - Respiratory Respiratory effort: normal Respiratory: bilateral: CTA - Cardiovascular Rhythm: regular Heart Sounds: Present: S1 & S2. Absent: gallop, rub Extremities: pulses intact, No edema, normal color, Full ROM - Gastrointestinal General gastrointestinal: Present: soft, non-tender, non-distended, normal bowel sounds - Integumentary Integumentary: clear, warm, dry - Musculoskeletal Musculoskeletal: right sided weakness - Neurologic Neurologic: focal deficits (right sided weakness) - Psychiatric Psychiatric: appropriate mood/affect, no intact judgment & insight, no memory intact - Labs CBC & Chem 7: 11/22/18 22:26 11/22/18 22:26 Labs: Abnormal lab results 11/23/18 11/24/18 11/24/18 Range/Units 16:23 06:11 12:22 POC Glucose 119 H 113 H 118 H (70-105)
--- NOTE | 2018-11-24 15:18 | Progress Note ---
Assessment and Plan 1. atypical chest pain with elevated CE - no further cardiac workup by cardiology 2. HTN, stable 3. DM type 2, SSI 6. CVA 3 with right hameparesis - wants rehab, consulted PT 7. Dementia, supportive care 8. Mental disability 9. Osteoarthritis 10. stool impaction on CT abdomen, place on stool softner Brief history: Pt is a 68 year BM with PMHx if multiple CVAs, dementia, diabetes, hypertension, mental disability who was brought to the ER due to reported chest pain. Cardiology followed the patient, ruled out ACS. wants for rehab. Subjective Date of service: 11/24/18 Interval history: Patient seen and examined denies any chest pain d/c pending on rehab placement and PT recommendation Objective - Exam Narrative Exam: General appearance: Present: no acute distress - EENT Eyes: PERRL, EOM intact ENT: hearing intact, clear oral mucosa Ears: bilateral: normal - Neck Neck: supple, normal ROM - Respiratory Respiratory effort: normal Respiratory: bilateral: CTA - Cardiovascular Rhythm: regular Heart Sounds: Present: S1 & S2. Absent: gallop, rub Extremities: pulses intact, No edema, normal color, Full ROM - Gastrointestinal General gastrointestinal: Present: soft, non-tender, non-distended, normal bowel sounds - Integumentary Integumentary: clear, warm, dry - Musculoskeletal Musculoskeletal: right sided weakness - Neurologic Neurologic: focal deficits (right sided weakness) - Psychiatric Psychiatric: appropriate mood/affect, no intact judgment & insight, no memory intact - Constitutional Vitals: Vital Signs - 12hr 11/24/18 11/24/18 11/24/18 04:52 08:45 12:19 Temperature 98.0 F 98.3 F 98.0 F Pulse Rate 59 L 60 62 Respiratory 20 18 18 Rate Blood Pressure 130/74 139/75 128/69 O2 Sat by Pulse 95 96 90 Oximetry - Labs CBC & Chem 7: 11/22/18 22:26 11/22/18 22:26 Labs: Abnormal lab results 11/23/18 11/24/18 11/24/18 Range/Units 16:23 06:11 12:22 POC Glucose 119 H 113 H 118 H (70-105)
--- NOTE | 2018-11-24 15:23 | Progress Note ---
Assessment and Plan Reported episode of chest pain. Patient is not currently able to provide any meaningful history No biomarker or ECG evidence for ACS Mental disability Dementia DM CVA Recommend: No current evidence for ACS. In the absence of further symptoms, I do not recommend further inpatient cardiac testing. Subjective Date of service: 11/24/18 Interval history: No cardiac complaints. Objective Vital Signs Temp Pulse Resp BP Pulse Ox 11/24/18 12:19 98.0 F 62 18 128/69 90 11/24/18 08:45 98.3 F 60 18 139/75 96 11/24/18 04:52 98.0 F 59 L 20 130/74 95 11/23/18 23:28 98.0 F 66 18 147/74 95 11/23/18 23:00 63 11/23/18 19:34 98.0 F 20 167/94 11/23/18 15:58 98.0 F 64 18 132/64 97 11/23/18 15:34 73 - Physical Examination HEENT: Positive: PERRL Neck: Positive: neck supple Lungs: Positive: clear to auscultation Abdomen: Positive: Soft, Active Bowel Sounds Extremities: Absent: edema
[2018-11-24] MEDS: ARICEPT PO SCH (23:05)
[2018-11-24] MEDS: FLOMAX PO SCH (23:05)
[2018-11-24] MEDS: ZANAFLEX PO SCH (23:05)
[2018-11-25] MEDS: HumaLOG SUB-Q SCH ×4 (07:57→22:57)
--- NOTE | 2018-11-25 09:20 | Progress Note ---
Addendum entered and electronically signed by TONO SHEA MD 11/25/18 12:28: Conservative cardiac management. Original Note: Assessment and Plan Reported episode of chest pain. Patient is not currently able to provide any meaningful history No ECG evidence for ACS Dementia DM CVA Conservative cardiac management. Subjective Date of service: 11/25/18 Interval history: Patient denies chest pain and shortness of breath. Objective Vital Signs Temp Pulse Resp Resp BP Pulse Ox 11/25/18 09:11 96 11/25/18 09:00 72 11/25/18 01:02 97.8 F 72 18 93/58 96 11/24/18 23:00 58 L 11/24/18 22:00 16 11/24/18 19:40 98.9 F 61 17 139/70 97 11/24/18 16:04 98.2 F 86 16 130/79 95 11/24/18 15:52 70 115/67 98 11/24/18 12:19 98.0 F 62 18 128/69 90 - Physical Examination General: No Apparent Distress HEENT: Positive: PERRL Neck: Positive: trachea midline Cardiac: Positive: Reg Rate and Rhythm Extremities: Absent: edema
[2018-11-25] MEDS: COLACE PO SCH ×2 (10:51→22:46)
[2018-11-25] MEDS: PEPCID IV SCH ×2 (10:51→22:46)
[2018-11-25] MEDS: NORVASC PO SCH (10:51)
[2018-11-25] MEDS: celeXA PO SCH (10:51)
[2018-11-25] MEDS: PLAVIX PO SCH (10:51)
[2018-11-25] MEDS: KEPPRA PO SCH ×2 (10:51→22:45)
[2018-11-25] MEDS: NAMENDA PO SCH ×2 (10:51→22:45)
[2018-11-25] MEDS: ZESTRIL PO SCH (10:52)
[2018-11-25] MEDS: MIRALAX 3350 PO SCH ×2 (10:53→22:47)
[2018-11-25] MEDS: DULCOLAX PR SCH (10:53)
[2018-11-25] MEDS: LIDODERM 5% TD SCH (10:53)
--- NOTE | 2018-11-25 13:54 | Query- Chest Pain ---
Alberta Fagan____Lorie Date:___11/25/2018 Rosa/SUJEY:____Magaly Phone#:___[phone] Exercise your independent professional judgment when responding to query. Questions asked do not imply a particular answer is desired or expected. We greatly appreciate your clarification on this issue. Clinical Documentation States: 68 year BM year BM with PMHx arthritis, CVA 3 with some residual right-sided weakness, dementia, diabetes, hypertension, mental disability who was brought to the ER by EMS for c/o chest pain today. Assessment and Plan 1. "atypical chest pain with elevated CE." Please document the etiology of Chest Pain: [ ] Myocardial Infarction [ ] Pneumonia [ ] Mediastinitis [ ] Costochondritis [ ] Pulmonary Embolism [ ] Coronary Artery Disease [ ] GERD [ ] Other: [ ] Comment/Explanation:____Please see discharge summary Present on Admission: [ ] Yes (Y) [ ] Clinically undeterminable (W) [ ] No(N) Please document response in your Progress Notes and/or Discharge Summary and indicate if the condition was present on admission. JUDE
--- NOTE | 2018-11-25 14:35 | Progress Note ---
Assessment and Plan 1. atypical chest pain with elevated CE - no further cardiac workup by cardiology 2. HTN, stable 3. DM type 2, SSI 6. CVA 3 with right hameparesis - wants rehab, consulted PT - need [facility], discussed with CM 7. Dementia, supportive care 8. Mental disability 9. Osteoarthritis 10. stool impaction on CT abdomen, placed on stool softner Disposition: Pending [facility] placement Brief history: Pt is a 68 year BM with PMHx if multiple CVAs, dementia, diabetes, hypertension, mental disability who was brought to the ER due to reported chest pain. Cardiology followed the patient, ruled out ACS. wants for rehab. Subjective Date of service: 11/25/18 Interval history: Patient seen and examined denies any chest pain d/c pending on rehab placement and PT recommendation Objective - Exam Narrative Exam: General appearance: Present: no acute distress - EENT Eyes: PERRL, EOM intact ENT: hearing intact, clear oral mucosa Ears: bilateral: normal - Neck Neck: supple, normal ROM - Respiratory Respiratory effort: normal Respiratory: bilateral: CTA - Cardiovascular Rhythm: regular Heart Sounds: Present: S1 & S2. Absent: gallop, rub Extremities: pulses intact, No edema, normal color, Full ROM - Gastrointestinal General gastrointestinal: Present: soft, non-tender, non-distended, normal bowel sounds - Integumentary Integumentary: clear, warm, dry - Musculoskeletal Musculoskeletal: right sided weakness - Neurologic Neurologic: focal deficits (right sided weakness) - Psychiatric Psychiatric: appropriate mood/affect, no intact judgment & insight, no memory intact - Constitutional Vitals: Vital Signs - 12hr 11/25/18 11/25/18 11/25/18 04:59 08:30 09:00 Temperature 97.6 F 98.1 F Pulse Rate 59 L 72 72 Respiratory 17 18 Rate Blood Pressure 118/63 123/69 O2 Sat by Pulse 95 95 Oximetry 11/25/18 09:11 Temperature Pulse Rate Respiratory Rate Blood Pressure O2 Sat by Pulse 96 Oximetry - Labs CBC & Chem 7: 11/22/18 22:26 11/22/18 22:26 Labs: Abnormal lab results 11/24/18 Range/Units 15:56 POC Glucose 140 H (70-105)
[2018-11-25] MEDS: FLOMAX PO SCH (22:45)
[2018-11-25] MEDS: ZANAFLEX PO SCH (22:46)
[2018-11-25] MEDS: ARICEPT PO SCH (22:46)
[2018-11-25] MEDS: SODIUM CHLORIDE FLUSH SYRINGE 10 ML IV SCH (22:48)
[2018-11-26] MEDS: HumaLOG SUB-Q SCH ×4 (07:56→23:16)
[2018-11-26] MEDS: KEPPRA PO SCH ×2 (10:36→23:16)
[2018-11-26] MEDS: NORVASC PO SCH (10:36)
[2018-11-26] MEDS: MIRALAX 3350 PO SCH ×2 (10:36→23:17)
[2018-11-26] MEDS: celeXA PO SCH (10:36)
[2018-11-26] MEDS: COLACE PO SCH ×2 (10:36→23:15)
[2018-11-26] MEDS: PLAVIX PO SCH (10:36)
[2018-11-26] MEDS: ZESTRIL PO SCH (10:36)
[2018-11-26] MEDS: SODIUM CHLORIDE FLUSH SYRINGE 10 ML IV SCH ×3 (10:37→23:18)
[2018-11-26] MEDS: PEPCID IV SCH (10:37)
[2018-11-26] MEDS: LIDODERM 5% TD SCH (10:37)
[2018-11-26] MEDS: DULCOLAX PR SCH (10:41)
--- NOTE | 2018-11-26 11:09 | Query- Nutrition ---
Alberta Fagan____Calderon Date:__11/26/2018 Tafe Lecturer/CDS:____[place] Phone#:___[phone] Exercise your independent professional judgment when responding to query. Questions asked do not imply a particular answer is desired or expected. We greatly appreciate your clarification on this issue. Clinical Documentation States: Pt is a 68 year BM with PMHx if multiple CVAs, dementia, diabetes, hypertension, mental disability who was brought to the ER due to reported chest pain. 7. Dementia, supportive care 8. Mental disability Clinical Findings Show: BMI:___17.8____ Please select the most appropriate option [] Mild Malnutrition [x] Moderate Malnutrition [] Severe Malnutrition Serum Albumin 2.8 to 3.4 g/dl or Pre-albumin 5 to 17 mg/dl1,2 Inadequate nutritional intake1,2,3,4 NPO > 5 days Weight loss: 5% in 1 month or 7.5% in 3 months or 10% in 6 months1, 3,4 BMI 16 to 18.4 or Weight <90% of ideal body weight1,2,3,4 Serum Albumin < 2.8 g/ dl1,2 Lymphocytes < 1500/ L2 Inadequate nutritional intake3, high stress e.g. major trauma, sepsis,pancreatitis, burgos etc. Decubitus ulcers1,2, , skin breakdown2, easy hair pluckability2 Weight <80% standard for height2 Triceps skin fold <3 mm2 Mid-arm muscle circumference <15 cm2 Creatinine-height index <60% standard2 [ ] Cachexia [ ] Emaciated w/Malnutrition [ ] Other: [ ] Unable to determine [ ] Comment/Explanation: Present on Admission: [x ] Yes (Y) [ ] Clinically undeterminable (W) [ ] No (N) Please also document response in your Progress Notes and/or Discharge Summary and indicate if the condition was present on admission. MTDD
[2018-11-26] MEDS: NAMENDA PO SCH ×2 (12:36→23:17)
--- NOTE | 2018-11-26 13:26 | Progress Note ---
Addendum entered and electronically signed by TONO SHEA MD 11/26/18 14:03: We will order a pharmacologic stress test with thallium for further ischemia assessment. Original Note: Assessment and Plan Chest pain DM CVA -on plavix Hypertension Pre-discharge persantine thallium stress test for further cardiac evaluation. Subjective Date of service: 11/26/18 Interval history: Patient is resting in bed comfortably. He denies chest pain and shortness of breath. Objective Vital Signs Temp Pulse Resp BP Pulse Ox 11/26/18 10:00 18 97 11/26/18 08:20 97.9 F 52 L 18 134/67 99 11/26/18 03:30 98.4 F 50 L 16 130/69 97 11/26/18 01:00 50 L 11/25/18 23:00 98.6 F 56 L 18 147/65 96 11/25/18 19:35 99.3 F 65 14 131/67 97 11/25/18 17:00 65 11/25/18 15:47 97.9 F 65 20 126/67 96 - Physical Examination General: No Apparent Distress HEENT: Positive: PERRL Neck: Positive: trachea midline Cardiac: Positive: Reg Rate and Rhythm Lungs: Positive: Decreased Breath Sounds Abdomen: Positive: Active Bowel Sounds Extremities: Absent: edema
--- NOTE | 2018-11-26 19:10 | Progress Note ---
Assessment and Plan Assessment and plan: Pt is a 68 year BM with PMHx if multiple CVAs, dementia, diabetes, hypertension, mental disability who was brought to the ER due to reported chest pain. Cardiology followed the patient, ruled out ACS. wants for rehab. -- atypical chest pain with elevated CE Continue supportive care, possible stress test tomorrow to rule out reversible ischemia Cardiology following --HTN, stable, well controlled on current antihypertensives and when necessary medications -- DM type 2, SSI Accu-Cheks insulin as needed --History of CVA 3 with right hameparesis Physical therapy and occupational therapy, patient does not want rehabilitation --Dementia, /mental disability supportive care --Osteoarthritis; pain management PT OT --Constipation/ stool impaction on CT abdomen, placed on stool softner --DC planning; P management, home with home health Patient diffuse subacute rehabilitation Follow stress test if negative and stable patient may be discharged tomorrow Plan of care is reviewed with the patient and the family member at the bedside History Interval history: Patient seen and examined medical records reviewed Admitted with atypical chest pain, symptoms significantly improved Alert awake oriented 3 Vital signs noted Hospitalist Physical - Constitutional Vitals: Temp Pulse Resp BP Pulse Ox 97.9 F 61 18 121/57 96 11/26/18 15:35 11/26/18 15:35 11/26/18 15:35 11/26/18 15:35 11/26/18 15:35 General appearance: Present: no acute distress, cachectic, disheveled - EENT Eyes: Present: PERRL, EOM intact - Neck Neck: Present: supple, normal ROM - Respiratory Respiratory effort: normal Respiratory: bilateral: diminished, negative: rales, rhonchi, wheezing - Cardiovascular Rhythm: regular Heart Sounds: Present: S1 & S2 - Extremities Extremities: no ischemia, No edema - Abdominal General gastrointestinal: soft, non-tender, non-distended, normal bowel sounds - Integumentary Integumentary: Present: clear, warm - Psychiatric Psychiatric: appropriate mood/affect, cooperative - Neurologic Neurologic: CNII-XII intact, moves all extremities Results - Labs CBC & Chem 7: 11/22/18 22:26 11/22/18 22:26 Labs: Laboratory Last Values WBC 8.8 K/mm3 (4.5-11.0) 11/22/18 22:26 RBC 3.72 M/mm3 (3.65-5.03) 11/22/18 22: Hgb 11.8 gm/dl (11.8-15.2) 11/22/18 22: Hct 35.8 % (35.5-45.6) 11/22/18 22: MCV 96 fl (84-94) H 11/22/18 22: MCH 32 pg (28-32) 11/22/18: MCHC 33 % (32-34) 11/22/18 22: RDW 14.0 % (13.2-15.2) 11/22/18: Plt Count 346 K/mm3 (140-440) 11/22/18 22: Lymph % (Auto) 16.7 % (13.4-35.0) 11/22/18 22: [place] % (Auto) 7.5 % (0.0-7.3) H 11/22/18: Eos % (Auto) 3.2 % (0.0-4.3) 11/22/18 22: Baso % (Auto) 0.6 % (0.0-1.8) 11/22/18 22: Lymph # 1.5 K/mm3 (1.2-5.4) 11/22/18 22: [place] # 0.7 K/mm3 (0.0-0.8) 11/22/18 22: Eos # 0.3 K/mm3 (0.0-0.4) 11/22/18: Baso # 0.1 K/mm3 (0.0-0.1) 11/22/18 22: Seg Neutrophils % 72.0 % (40.0-70.0) H 11/22/18 22: Seg Neutrophils # 6.3 K/mm3 (1.8-7.7) 11/22/18 22: PT 12.5 Sec. (12.2-14.9) 11/22/18 16:48 INR 0.90 (0.87-1.13) 11/22/18 16:48 APTT 30.7 Sec. (24.2-36.6) 11/22/18 16:48 D-Dimer 581.86 ng/mlDDU (0-234) H 11/22/18 16:48 Sodium 137 mmol/L (137-145) 11/22/18 22:26 Potassium 4.2 mmol/L (3.6-5.0) 11/22/18 22:26 Chloride 97.3 mmol/L (98-107) L 11/22/18 22:26 Carbon Dioxide 30 mmol/L (22-30) 11/22/18 22:26 Anion Gap 14 mmol/L 11/22/18 22:26 BUN 20 mg/dL (9-20) 11/22/18 22:26 Creatinine 0.7 mg/dL (0.8-1.5) L 11/22/18 22:26 Estimated GFR > 60 ml/min 11/22/18 22:26 BUN/Creatinine Ratio 29 % 11/22/18 22:26 Glucose 97 mg/dL (75-100) 11/22/18 22:26 POC Glucose 76 (70-105) 11/26/18 15:36 Calcium 9.5 mg/dL (8.4-10.2) 11/22/18 22:26 Total Creatine Kinase 548 units/L (55-170) H 11/23/18 10:07 CK-MB (CK-2) 3.9 ng/mL (0.0-4.0) 11/23/18 10:07 CK-MB (CK-2) Rel Index 0.7 (0-4) 11/23/18 10:07 Troponin T < 0.010 ng/mL (0.00-0.029) 11/23/18 13:02 Triglycerides 82 mg/dL (2-149) 11/22/18 16:48 Cholesterol 105 mg/dL (50-199) 11/22/18 16:48 LDL Cholesterol Direct 42 mg/dL (50-130) L 11/22/18 16:48 HDL Cholesterol 55 mg/dL (40-59) 11/22/18 16:48 Cholesterol/HDL Ratio 1.90 % 11/22/18 16:48 Nutrition/Malnutrition Assess - Dietary Evaluation Nutrition/Malnutrition Findings: Nutrition Notes Start: 11/25/18 16:31 Freq: Status: Active Protocol: Document 11/25/18 16:31 OL (Rec: 11/25/18 16:36 OL [id number]) Nutrition Notes Need for Assessment generated from: Low BMI Initial or Follow up Assessment Current Diagnosis Diabetes Hypertension Stroke Other Pertinent Diagnosis dementia, mental disability Current Diet cardiac Labs/Tests Reviewed Pertinent Medications Reviewed Height 5 ft 6 in Weight 50.1 kg [place] Body Weight (lbs) 142.0 BMI 17.8 Subjective/Other Information RD screen for low BMI. Pt. up in bed eating lunch, 50% consumed so far. Pt. regularly drinks glucerna. He is unsure of UBW. RD will continue to follow. Burn Absent Trauma Absent #1 Nutrition Diagnosis Predicted suboptimal energy intake Etiology dementia/mental disability As Evidenced by Signs and Symptoms low BMI of 17.8 Is patient on ventilator? No Is Patient Ambulatory and/or Out of Bed No REE-([facility]-confined to bed) 1462.428 Calculation Used for Recommendations [facility] Additional Notes protein (1.2-1.5g/kg): 60-75g fluid: 1mL/kcal or per MD Nutrition Intervention Change Diet Order: Continue cardiac Add Supplement/Snack (indicate name/kcal Glucerna (chocolate) daily /protein ) Provides kCal: 220 Provides Protein (gm) 10 Goal #1 Diet to meet 75-100% of nutrient needs Goal #2 Wt. maintenance/gain Anticipated Discharge Needs: Cardiac Follow-Up By: 11/27/18 Additional Comments f/u: intakes, blood glucose
[2018-11-26] MEDS: ARICEPT PO SCH (23:14)
[2018-11-26] MEDS: FLOMAX PO SCH (23:15)
[2018-11-26] MEDS: ZANAFLEX PO SCH (23:15)
[2018-11-26] MEDS: PEPCID PO SCH (23:16)
[2018-11-27 05:51] LABS: BUN/Creatinine Ratio 23; Blood Urea Nitrogen 16 mg/dL (9-20); Hemolysis Index 7
[2018-11-27] MEDS: HumaLOG SUB-Q SCH ×4 (07:30→22:35)
[2018-11-27] MEDS: NAMENDA PO SCH ×2 (10:00→21:29)
[2018-11-27] MEDS: COLACE PO SCH ×2 (10:00→21:29)
[2018-11-27] MEDS: PEPCID PO SCH ×2 (10:00→21:30)
[2018-11-27] MEDS: LIDODERM 5% TD SCH (10:00)
[2018-11-27] MEDS: celeXA PO SCH (10:00)
[2018-11-27] MEDS: KEPPRA PO SCH ×2 (10:00→21:29)
[2018-11-27] MEDS: MIRALAX 3350 PO SCH ×2 (10:00→21:30)
[2018-11-27] MEDS: ZESTRIL PO SCH (10:00)
[2018-11-27] MEDS: PLAVIX PO SCH (10:00)
[2018-11-27] MEDS: NORVASC PO SCH (10:00)
[2018-11-27] MEDS: DULCOLAX PR SCH (10:00)
[2018-11-27] MEDS ORDERED: LEXISCAN IV ONE ×2 (10:47→11:18)
--- NOTE | 2018-11-27 12:46 | Progress Note ---
Assessment and Plan Chest pain Normal MPI this admission, normal LVEF DM CVA -on plavix Hypertension Recommendations: No further cardiac work-up is needed Subjective Date of service: 11/27/18 Principal diagnosis: Chest Pain Interval history: Patient underwent a lexiscan this morning without complications Objective Vital Signs Temp Pulse Pulse Pulse Resp BP Pulse Ox 11/27/18 11:27 87 115/62 11/27/18 11:26 83 116/54 11/27/18 11:25 83 119/65 11/27/18 11:24 88 116/67 11/27/18 11:23 88 133/68 11/27/18 11:22 88 141/63 11/27/18 11:15 56 L 125/71 11/27/18 08:20 98.6 F 57 L 20 120/60 98 11/27/18 04:50 55 L 11/27/18 03:53 97.7 F 61 16 116/63 98 11/26/18 23:27 98.3 F 58 L 16 137/62 96 11/26/18 22:35 61 61 18 98 11/26/18 19:44 98.8 F 61 18 122/93 98 11/26/18 15:35 97.9 F 61 18 121/57 96 - Physical Examination General: No Apparent Distress HEENT: Positive: PERRL Neck: Positive: trachea midline Cardiac: Positive: Reg Rate and Rhythm Lungs: Positive: Normal Exam Abdomen: Positive: Active Bowel Sounds Extremities: Absent: edema - Labs and Meds Comprehensive Metabolic Panel 11/27/18 Range/Units 04:05 Sodium 141 (137-145) mmol/L Potassium 4.0 (3.6-5.0) mmol/L Chloride 103.3 (98-107) mmol/L Carbon Dioxide 28 (22-30) mmol/L BUN 16 (9-20) mg/dL Creatinine 0.7 L (0.8-1.5) mg/dL Glucose 111 H (75-100) mg/dL Calcium 9.0 (8.4-10.2) mg/dL
[2018-11-27] MEDS: SODIUM CHLORIDE FLUSH SYRINGE 10 ML IV SCH ×2 (14:19→21:31)
--- NOTE | 2018-11-27 20:38 | Progress Note ---
Assessment and Plan Assessment and plan: Pt is a 68 year BM with PMHx if multiple CVAs, dementia, diabetes, hypertension, mental disability who was brought to the ER due to reported chest pain. Cardiology followed the patient, ruled out ACS. wants for rehab. -- atypical chest pain with elevated CE Continue supportive care, possible stress test today to rule out reversible ischemia Cardiology following --HTN, stable, well controlled on current antihypertensives and when necessary medications -- DM type 2, SSI Accu-Cheks insulin as needed --History of CVA 3 with right hameparesis Physical therapy and occupational therapy, patient does not want rehabilitation --Dementia, /mental disability supportive care --Osteoarthritis; pain management PT OT --Constipation/ stool impaction on CT abdomen, placed on stool softner --DC planning; P management, home with home health Patient diffuse subacute rehabilitation Follow stress test if negative and stable patient may be discharged tomorrow Plan of care is reviewed with the patient and the family member at the bedside History Interval history: Patient seen and examined medical records reviewed No new events reported by the nursing staff Patient has mild shortness of breath Alert awake oriented 3 not in acute distress Vital signs reviewed Hospitalist Physical - Constitutional Vitals: Temp Pulse Resp BP Pulse Ox 99.0 F 56 L 16 131/61 97 11/27/18 19:13 11/27/18 19:13 11/27/18 19:13 11/27/18 19:13 11/27/18 19:13 General appearance: Present: no acute distress, cachectic, disheveled - EENT Eyes: Present: PERRL, EOM intact - Neck Neck: Present: supple, normal ROM - Respiratory Respiratory effort: normal Respiratory: bilateral: diminished, negative: rales, rhonchi, wheezing - Cardiovascular Rhythm: regular Heart Sounds: Present: S1 & S2 - Extremities Extremities: no ischemia, No edema Peripheral Pulses: within normal limits - Abdominal General gastrointestinal: soft, non-distended - Integumentary Integumentary: Present: clear, warm - Psychiatric Psychiatric: appropriate mood/affect, cooperative - Neurologic Neurologic: moves all extremities Results - Labs CBC & Chem 7: 11/22/18 22:26 11/27/18 04:05 Labs: Laboratory Last Values WBC 8.8 K/mm3 (4.5-11.0) 11/22/18 22:26 RBC 3.72 M/mm3 (3.65-5.03) 11/22/18 22: Hgb 11.8 gm/dl (11.8-15.2) 11/22/18 22: Hct 35.8 % (35.5-45.6) 11/22/18 22: MCV 96 fl (84-94) H 11/22/18 22: MCH 32 pg (28-32) 11/22/18: MCHC 33 % (32-34) 11/22/18 22: RDW 14.0 % (13.2-15.2) 11/22/18: Plt Count 346 K/mm3 (140-440) 11/22/18 22: Lymph % (Auto) 16.7 % (13.4-35.0) 11/22/18 22: [place] % (Auto) 7.5 % (0.0-7.3) H 11/22/18: Eos % (Auto) 3.2 % (0.0-4.3) 11/22/18 22: Baso % (Auto) 0.6 % (0.0-1.8) 11/22/18 22: Lymph # 1.5 K/mm3 (1.2-5.4) 11/22/18 22: [place] # 0.7 K/mm3 (0.0-0.8) 11/22/18 22: Eos # 0.3 K/mm3 (0.0-0.4) 11/22/18: Baso # 0.1 K/mm3 (0.0-0.1) 11/22/18 22: Seg Neutrophils % 72.0 % (40.0-70.0) H 11/22/18 22: Seg Neutrophils # 6.3 K/mm3 (1.8-7.7) 11/22/18 22: PT 12.5 Sec. (12.2-14.9) 11/22/18 16:48 INR 0.90 (0.87-1.13) 11/22/18 16:48 APTT 30.7 Sec. (24.2-36.6) 11/22/18 16:48 D-Dimer 581.86 ng/mlDDU (0-234) H 11/22/18 16:48 Sodium 141 mmol/L (137-145) 11/27/18 04:05 Potassium 4.0 mmol/L (3.6-5.0) 11/27/18 04:05 Chloride 103.3 mmol/L (98-107) 11/27/18 04:05 Carbon Dioxide 28 mmol/L (22-30) 11/27/18 04:05 Anion Gap 14 mmol/L 11/27/18 04:05 BUN 16 mg/dL (9-20) 11/27/18 04:05 Creatinine 0.7 mg/dL (0.8-1.5) L 11/27/18 04:05 Estimated GFR > 60 ml/min 11/27/18 04:05 BUN/Creatinine Ratio 23 % 11/27/18 04:05 Glucose 111 mg/dL (75-100) H 11/27/18 04:05 POC Glucose 155 (70-105) H 11/27/18 16:06 Calcium 9.0 mg/dL (8.4-10.2) 11/27/18 04:05 Total Creatine Kinase 548 units/L (55-170) H 11/23/18 10:07 CK-MB (CK-2) 3.9 ng/mL (0.0-4.0) 11/23/18 10:07 CK-MB (CK-2) Rel Index 0.7 (0-4) 11/23/18 10:07 Troponin T < 0.010 ng/mL (0.00-0.029) 11/23/18 13:02 Triglycerides 82 mg/dL (2-149) 11/22/18 16:48 Cholesterol 105 mg/dL (50-199) 11/22/18 16:48 LDL Cholesterol Direct 42 mg/dL (50-130) L 11/22/18 16:48 HDL Cholesterol 55 mg/dL (40-59) 11/22/18 16:48 Cholesterol/HDL Ratio 1.90 % 11/22/18 16:48 Nutrition/Malnutrition Assess - Dietary Evaluation Nutrition/Malnutrition Findings: Nutrition Notes Start: 11/25/18 16:31 Freq: Status: Active Protocol: Document 11/27/18 15:21 RM (Rec: 11/27/18 15:28 RM [id number]) Nutrition Notes Initial or Follow up Reassessment Current Diagnosis Diabetes Hypertension Stroke Other Pertinent Diagnosis dementia, mental disability Current Diet NPO after midnight Labs/Tests Reviewed Pertinent Medications Reviewed Height 5 ft 6 in Weight 49.8 kg [place] Body Weight (lbs) 142.0 BMI 17.7 Subjective/Other Information Pt NPO for possible stress test. Pt tech unsure how much pt has been eating d/t it being first day with pt. Burn Absent Trauma Absent #1 Nutrition Diagnosis Predicted suboptimal energy intake Diagnosis Progress(for reassessment Continues documentation) Is patient on ventilator? No Is Patient Ambulatory and/or Out of Bed No REE-([place]-confined to bed) 1458.820 [facility] Additional Notes protein (1.2-1.5g/kg): 60-75g fluid: 1mL/kcal or per MD Nutrition Intervention Change Diet Order: Advance diet when medically able Add Supplement/Snack (indicate name/kcal Glucerna (chocolate) daily /protein ) once diet advanced Provides kCal: 220 Provides Protein (gm) 10 Goal #1 Diet advancement Anticipated Discharge Needs: Cardiac Follow-Up By: 11/29/18 Additional Comments Follow for diet advancement
[2018-11-27] MEDS: ZANAFLEX PO SCH (21:29)
[2018-11-27] MEDS: FLOMAX PO SCH (21:29)
[2018-11-27] MEDS: ARICEPT PO SCH (21:30)
--- NOTE | 2018-11-27 21:34 | Treadmill Report ---
INDICATION FOR PROCEDURE: Chest pain. ORDERING PHYSICIAN: Yokasta Balbuena MD FINDINGS: There is no scintigraphic evidence of myocardial ischemia. The left ventricle is normal in size and systolic function. The left ventricular ejection fraction is measured at greater than 60%. There is normal wall motion and wall thickening on gated imaging. CONCLUSION: 1. Suboptimal perfusion scan limited by motion artifact. 2. No scintigraphic evidence of myocardial ischemia. 3. Normal left ventricular size and systolic function. JOB# [id number] RAMOS/KARINA
--- NOTE | 2018-11-28 07:52 | Discharge Summary ---
Providers - Providers Date of Admission: 11/22/18 21:22 Date of discharge: 11/28/18 Attending physician: CHRISTINE SANTOS 11/22/18 Consult to Cardiac Rehabilitation [CONS] Routine Reason For Exam: Phase I 11/22/18 20:04 Consult to Cardiology [CONS] Routine Consulting Provider: RODY ORR Reason For Exam: elevated troponin, chest pain 11/23/18 16:30 Physical Therapy Evaluation and Treat [CONS] Routine Comment: Reason For Exam: placement Primary care physician: HERBERT LACEY MD Hospitalization Condition: Fair Disposition: DC-30 STILL A PATIENT Exam - Constitutional Vitals: Temp Pulse Resp BP Pulse Ox 98.4 F 60 14 104/62 96 11/28/18 03:31 11/28/18 03:31 11/28/18 03:31 11/28/18 03:31 11/28/18 03:31 Plan Follow up with: PRIMARY MD ABHIJIT [Primary Care Provider] - 3-5 Days
[2018-11-28] MEDS: HumaLOG SUB-Q SCH ×3 (08:00→22:15)
[2018-11-28] MEDS: celeXA PO SCH (10:48)
[2018-11-28] MEDS: ZESTRIL PO SCH (10:48)
[2018-11-28] MEDS: NORVASC PO SCH (10:48)
[2018-11-28] MEDS: PLAVIX PO SCH (10:48)
[2018-11-28] MEDS: PEPCID PO SCH ×2 (10:48→22:13)
[2018-11-28] MEDS: COLACE PO SCH ×2 (10:48→22:13)
[2018-11-28] MEDS: NAMENDA PO SCH ×2 (10:49→22:14)
[2018-11-28] MEDS: LIDODERM 5% TD SCH (10:49)
--- NOTE | 2018-11-28 10:52 | Progress Note ---
Addendum entered and electronically signed by TONO SHEA MD 11/28/18 16:55: Cardiac workup negative as previously outlined, we will sign off and follow on a when necessary basis. Original Note: Assessment and Plan Chest pain Normal MPI this admission Normal LVEF by echo DM CVA -on plavix Hypertension Conservative cardiac management. Subjective Date of service: 11/28/18 Principal diagnosis: Chest Pain Interval history: Patient is resting in bed comfortably. He denies chest pain and shortness of breath. Objective Vital Signs Temp Pulse Pulse Pulse Resp BP Pulse Ox 11/28/18 09:01 98.1 F 67 18 131/75 98 11/28/18 03:31 98.4 F 60 14 104/62 96 11/27/18 23:17 97.9 F 56 L 18 114/58 96 11/27/18 22:30 59 L 59 L 18 99 11/27/18 19:25 58 L 11/27/18 19:13 99.0 F 56 L 16 131/61 97 11/27/18 16:05 97.9 F 76 18 131/69 96 11/27/18 13:07 97.9 F 65 18 134/73 97 11/27/18 11:27 87 115/62 11/27/18 11:26 83 116/54 11/27/18 11:25 83 119/65 11/27/18 11:24 88 116/67 11/27/18 11:23 88 133/68 11/27/18 11:22 88 141/63 11/27/18 11:15 56 L 125/71 - Physical Examination General: No Apparent Distress HEENT: Positive: PERRL Neck: Positive: trachea midline Cardiac: Positive: Reg Rate and Rhythm Lungs: Positive: Decreased Breath Sounds Extremities: Absent: edema
[2018-11-28] MEDS: KEPPRA PO SCH ×2 (12:19→22:13)
[2018-11-28] MEDS: DULCOLAX PR SCH (12:19)
--- NOTE | 2018-11-28 14:41 | Discharge Summary ---
Providers - Providers Date of Admission: 11/22/18 21:22 Date of discharge: 11/28/18 Attending physician: CHRISTINE SANTOS 11/22/18 Consult to Cardiac Rehabilitation [CONS] Routine Reason For Exam: Phase I 11/22/18 20:04 Consult to Cardiology [CONS] Routine Consulting Provider: RODY ORR Reason For Exam: elevated troponin, chest pain 11/23/18 16:30 Physical Therapy Evaluation and Treat [CONS] Routine Comment: Reason For Exam: placement Primary care physician: MEAT MANAGER Hospitalization Reason for admission: chest pain Condition: Fair Pertinent studies: CT abdomen and pelvis; multiple right renal cyst, atherosclerosis, possible fecal impaction CTA chest; no evidence of PE, atherosclerosis of coronary arteries, minimal dependent atelectasis Stress test; negative for reversible ischemia, suboptimal study Normal LV function 60% Hospital course: 68-year-old male patient with multiple medical problems was admitted through emergency room with chest pain, patient was admitted to the hospital symptomatically managed evaluated by cardiology, medications were optimized Patient had elevated d-dimer is, VQ scan is negative for PE, Patient subsequently underwent stress test, negative for reversible ischemia, normal left ventricular function ejection fraction The patient is comfortable in no new complaints, Vital signs stable Physical examination is unremarkable Patient is hemodynamically and clinically stable for discharge Plan of care reviewed with the patient and case management Discharge diagnosis: -- atypical chest pain with elevated CE stress test negative for reversible ischemia --HTN, stable, well controlled on current antihypertensives and when necessary medications -- DM type 2, SSI Accu-Cheks patient's blood sugars are in the range Did not need oral hypoglycemics, advised to hold metformin, check with PMD --History of CVA 3 with right hameparesis Physical therapy and occupational therapy, patient does not want rehabilitation --Dementia, /mental disability supportive care --Osteoarthritis; pain management PT OT --Constipation/ stool impaction on CT abdomen, resolved --DC planning; DC home with home health Patient diffuse subacute rehabilitation Patient is stable at discharge Disposition: DC/[place]-06 HOME UNDER HOME HL[facility] Time spent for discharge: 32 min Core Measure Documentation - Palliative Care Palliative Care/ Comfort Measures: Not Applicable - Core Measures Any of the following diagnoses?: none Exam - Constitutional Vitals: Temp Pulse Resp BP Pulse Ox 98.1 F 67 18 131/75 98 11/28/18 09:01 11/28/18 09:01 11/28/18 09:01 11/28/18 09:01 11/28/18 09:01 General appearance: Present: no acute distress, well-nourished - EENT Eyes: Present: PERRL, EOM intact - Neck Neck: Present: supple, normal ROM - Respiratory Respiratory effort: normal Respiratory: bilateral: diminished, negative: rales, rhonchi, wheezing - Cardiovascular Rhythm: regular Heart Sounds: Present: S1 & S2 - Extremities Extremities: no ischemia, No edema - Abdominal General gastrointestinal: Present: soft, non-tender, non-distended, normal bowel sounds - Integumentary Integumentary: Present: clear, warm - Musculoskeletal Musculoskeletal: strength equal bilaterally, generalized weakness - Psychiatric Psychiatric: appropriate mood/affect, cooperative - Neurologic Neurologic: CNII-XII intact, moves all extremities Plan Activity: advance as tolerated, fall precautions Diet: diabetic Special Instructions: physical therapy Additional Instructions: If you have chest pain or shortness of breath contact M.D. or go to emergency room. Hold metformin as the blood sugars are in the lower range. Check with primary care physician before resuming metformin. Patient was advised subacute rehabilitation, patient refused Follow up with: HERBERT LACEY MD [Primary Care Provider] - 3-5 Days TONO SHEA MD [Staff Physician] - 7 Days
[2018-11-28 21:25] VITALS: BP 144/73
[2018-11-28] MEDS: MIRALAX 3350 PO SCH ×2 (22:10→22:14)
[2018-11-28] MEDS: FLOMAX PO SCH (22:13)
[2018-11-28] MEDS: ZANAFLEX PO SCH (22:13)
[2018-11-28] MEDS: ARICEPT PO SCH (22:13)
[2018-11-28] MEDS: SODIUM CHLORIDE FLUSH SYRINGE 10 ML IV SCH ×2 (22:14→22:15)
--- NOTE | 2018-11-29 11:02 | Query- Chest Pain ---
Alberta Fagan___[place] Date:___11/29/2018 Drawing In Machine Tender Helper/CDS:___Magaly Phone#:____[phone] Exercise your independent professional judgment when responding to query. Questions asked do not imply a particular answer is desired or expected. We greatly appreciate your clarification on this issue. Clinical Documentation States: Pt is a 68 year BM with PMHx if multiple CVAs, dementia, diabetes, hypertension, mental disability who was brought to the ER due to reported chest pain. Cardiology followed the patient, ruled out ACS. Discharge diagnosis: -- atypical chest pain with elevated CE Continue supportive care, stress test negative for reversible ischemia Please document the etiology of Chest Pain: [ ] Myocardial Infarction [ ] Pneumonia [ ] Mediastinitis [ ] Costochondritis [ ] Pulmonary Embolism [ ] Coronary Artery Disease [ x] GERD [ ] Other: [ ] Comment/Explanation: Present on Admission: [x ] Yes (Y) [ ] Clinically undeterminable (W) [ ] No(N) Please document response in your Progress Notes and/or Discharge Summary and indicate if the condition was present on admission. JUDE
--- NOTE | 2018-11-29 18:46 | Event Note ---
Date: 11/29/18 Patient was discharged yesterday, has some social issues And could not leave the hospital, in the middle of the night early this morning The patient went home, please refer to medical records
== END 2018-11-29 00:55 | disposition home health service (06) | DRG 392 ==
LOC: ED 16:06 → 4A 21:22
PROVIDERS: ADMIT Internal Medicine; ATTEND Internal Medicine
DX: K21.9 Gastro-esophageal reflux disease without esophagitis (principal); E44.0 Moderate protein-calorie malnutrition; Z68.1 Body mass index [BMI] 19.9 or less, adult; I69.351 Hemiplegia and hemiparesis following cerebral infarction affecting right dominant side; K56.41 Fecal impaction; I10 Essential (primary) hypertension; F03.90 Unspecified dementia, unspecified severity, without behavioral disturbance, psychotic disturbance, mood disturbance, and anxiety; M19.90 Unspecified osteoarthritis, unspecified site; F09 Unspecified mental disorder due to known physiological condition; E11.9 Type 2 diabetes mellitus without complications; Z79.899 Other long term (current) drug therapy
CPT/HCPCS: 36415; 71045; 71275; 74177; 78452; 80048; 80061; 82550; 82553; 82962; 84484; 85025; 85379; 85610; 85730; 93005; 93010; 93017; 93306; 96374; G0378; A9270-GY; A9502; G8978-GP; G8979-GP; J1815; J2405; J2785; Q9967

== ENCOUNTER 2019-07-18 09:34 | Inpatient (IN) | payer MEDICARE ==
[2019-07-18 09:59] LABS: Basophils % (Auto) 0.7 % (0.0-1.8); Eosinophils # (Auto) 0.1 K/mm3 (0.0-0.4); Eosinophils % (Auto) 1.8 % (0.0-4.3); Hemoglobin 14.1 gm/dl (11.8-15.2); Lymphocytes # (Auto) 1.3 K/mm3 (1.2-5.4); Lymphocytes % (Auto) 19.7 % (13.4-35.0); Mean Corpuscular HGB Conc 34 % (32-34); Mean Corpuscular Volume 97 fl (84-94); Monocytes # (Auto) 0.9 K/mm3 (0.0-0.8); Platelet Count 231 K/mm3 (140-440); Red Blood Count 4.31 M/mm3 (3.65-5.03); Red Cell Distribution Width 14.5 % (13.2-15.2)
[2019-07-18 10:16] LABS: Calcium 9.9 mg/dL (8.4-10.2)
--- NOTE | 2019-07-18 11:20 | Cat Scan Report ---
CT BRAIN: 07/18/2019 INDICATION / CLINICAL INFORMATION: AMS. COMPARISON: 02/07/2017 FINDINGS: BRAIN/INTRACRANIAL STRUCTURES: Unenhanced CT images of the brain demonstrate no evidence of acute int racranial abnormality. Prominent diffuse cerebral atrophy is present. Extensive chronic white matter hypoattenuation is pres ent throughout the cerebral hemispheric white matter. There is evidence of chronic appearing lacunar infarcts in the thalami bilaterally. There is no CT evidence of acute ischemic injury, hemorrhage, or mass. There are no abnormal extra-ax ial fluid collections. Atherosclerotic vascular calcifications are present in the distal internal carotid arteries and verte bral arteries. EXTRACRANIAL STRUCTURES: Incidental note is made of opacification of the right maxillary sinus. Right and central frontal sinus opacification is also present. This has not changed when compared to the p rior exam. IMPRESSION: No evidence of acute abnormality. Extensive chronic changes as detailed above, unchanged when compar ed to 02/07/[address] scans at this location are performed using dose reduction to ALARA by means of automated expos ure control. Signer Name: Geoffrey Pereyra MD Signed: 07/18/2019 11:15 AM Workstation Name: [id number]
[2019-07-18] MEDS ORDERED: NACL 0.9% 1000 ML 1,000 ML IV ONE (11:32)
--- NOTE | 2019-07-18 11:35 | Emergency Department Report ---
HPI - General Chief Complaint: Altered Mental Status Time Seen by Provider: 07/18/19 09:54 - HPI HPI: 68-year-old male presents to the emergency department via EMS from his adult daycare after he had an unresponsive episode. Patient has a past medical history hypertension, diabetes, CVA 3 and has Alzheimer's dementia. His is currently at bedside providing most of the information, but previous visits/records also been reviewed. The patient's says that at his baseline mental status he is confused. Sometimes he will talk and other times he remains nonverbal. He does not walk but he is able to stand and transfer and help with some ADLs. He has some intermittent home health care. The patient's says that he was "quiet as usual before he went to daycare." Later on she received a phone call that he was unresponsive and that EMS had been called. The says that he is currently more tired/sleepy that he usually would be at this time of the day. ED Past Medical Hx - Past Medical History Previous Medical History?: Yes Hx Hypertension: Yes Hx CVA: Yes (x3; right sided weakness) Hx Diabetes: Yes Hx Arthritis: Yes (hands) Hx Dementia: Yes Hx HIV: No Additional medical history: Alzheimer's - Surgical History Past Surgical History?: Yes Additional Surgical History: Cataracts - Social History Smoking Status: Unknown if ever smoked Substance Use Type: None, Other - Medications Home Medications: Home Medications Medication Instructions Recorded Confirmed Last Taken Type Citalopram [celeXA] 40 mg PO QDAY 07/08/16 07/18/19 07/17/19 History amLODIPine [Norvasc] 5 mg PO DAILY 07/08/16 07/18/19 07/17/19 History Restasis 0.05% 1 drops OD BID 07/09/16 07/18/19 07/16/19 History traZODone [Desyrel] 150 mg PO QHS 02/06/17 07/18/19 07/17/19 History Donepezil [Aricept] 10 mg PO QHS #30 tablet 02/10/17 07/18/19 07/17/19 Rx AtorvaSTATin [Lipitor] 40 mg PO QHS 11/29/17 07/18/19 07/17/19 History Clopidogrel [Plavix] 75 mg PO QDAY 11/29/17 07/18/19 07/17/19 History Lidocaine [Lidoderm] 1 each TP DAILY 11/29/17 07/18/19 07/17/19 History Lisinopril [Zestril] 40 mg PO DAILY 11/29/17 07/18/19 07/17/19 History Memantine HCl [Namenda Xr] 28 mg PO DAILY 11/29/17 07/18/19 07/17/19 History Tamsulosin [Flomax] 0.4 mg PO QHS 11/29/17 07/18/19 07/17/19 History Tizanidine HCl [tiZANidine] 2 mg PO QHS 11/29/17 07/18/19 07/17/19 History levETIRAcetam [Keppra] 500 mg PO BID 11/29/17 07/18/19 07/17/19 History traMADol [Ultram 50 MG tab] 50 mg PO BID 11/29/17 07/18/19 07/17/19 History Aspirin [Aspirin BABY CHEW TAB] 81 mg PO QDAY 07/18/19 07/18/19 07/17/19 History Haloperidol 0.5 mg SL Q4H 07/18/19 07/18/19 07/17/19 History Hyoscyamine Subl [Levsin Sl 0.125 0.125 mg SL Q4HR PRN 07/18/19 07/18/19 07/17/19 History TAB] LORazepam [Ativan] 1.5 mg PO Q4H PRN 07/18/19 07/18/19 07/14/19 History Morphine [Morphine ORAL SOLN 10 10 mg PO Q4HR 07/18/19 07/18/19 07/17/19 History MG/5 ML] Promethazine [Phenergan] 25 mg PO Q4H PRN 07/18/19 07/18/19 07/16/19 History hydroCHLOROthiazide [HCTZ] 25 mg PO QDAY 07/18/19 07/18/19 07/17/19 History ED Review of Systems ROS: Stated complaint: AMS Other details as noted in HPI Comment: Unobtainable due to pts medical conditions Physical Exam - Physical Exam Vital Signs: Vital Signs 07/18/19 07/18/19 07/18/19 09:43 10:00 11:06 Pulse Rate 56 L 66 58 L Respiratory 14 11 L 10 L Rate Blood Pressure 138/58 93/42 91/49 O2 Sat by Pulse 96 94 92 Oximetry Physical Exam: GENERAL: Patient is elderly and ill-appearing. HENT: Normocephalic. Atraumatic. Patient has moist mucous membranes. EYES: Pupils equal reactive to light bilaterally. NECK: Supple. Trachea is midline. CHEST/LUNGS: Clear to auscultation. There is no respiratory distress noted. HEART/CARDIOVASCULAR: Regular. There is no tachycardia. There is no murmur. ABDOMEN: Abdomen is soft, nontender. Patient has normal bowel sounds. There is no abdominal distention. SKIN: Skin is warm and dry. NEURO: The patient is very sleepy but is arousable to painful stimuli. The patient will verbalize some incomprehensible sounds. Does not follow any commands. MUSCULOSKELETAL: There is no obvious deformity. There is no evidence of acute injury. ED Course Vital Signs 07/18/19 07/18/19 07/18/19 09:43 10:00 11:06 Pulse Rate 56 L 66 58 L Respiratory 14 11 L 10 L Rate Blood Pressure 138/58 93/42 91/49 O2 Sat by Pulse 96 94 92 Oximetry ED Medical Decision Making - Lab Data Result diagrams: 07/18/19 09:47 07/18/19 09:47 - EKG Data -: EKG Interpreted by Ct EKG shows normal: sinus rhythm (PACS), axis, intervals, QRS complexes, ST-T waves Rate: normal - EKG Data When compared to previous EKG there are: previous EKG unavailable Interpretation: normal EKG - Radiology Data Radiology results: report reviewed CT BRAIN: 07/18/2019 INDICATION / CLINICAL INFORMATION: AMS. COMPARISON: 02/07/2017 FINDINGS: BRAIN/INTRACRANIAL STRUCTURES: Unenhanced CT images of the brain demonstrate no evidence of acute intracranial abnormality. Prominent diffuse cerebral atrophy is present. Extensive chronic white matter hypoattenuation is present throughout the cerebral hemispheric white matter. There is evidence of chronic appearing lacunar infarcts in the thalami bilaterally. There is no CT evidence of acute ischemic injury, hemorrhage, or mass. There are no abnormal extra- axial fluid collections. Atherosclerotic vascular calcifications are present in the distal internal carotid arteries and vertebral arteries. EXTRACRANIAL STRUCTURES: Incidental note is made of opacification of the right maxillary sinus. Right and central frontal sinus opacification is also present. This has not changed when compared to the prior exam. IMPRESSION: No evidence of acute abnormality. Extensive chronic changes as detailed above, unchanged when compared to 02/07/2017 - Medical Decision Making This patient presents from his adult daycare after having an unresponsive episode there. Since being in the emergency department, the patient appears very sleepy. He does respond slightly to painful stimuli and occasionally to some verbal stimuli but will go right back to sleep if not consistently stimulated. CT of the head did not show any bleed, shift, mass, ischemia, or any other process. Labs show mild renal insufficiency. Urine drug screen positive for methamphetamines and opiates. His is at bedside and says that he is more sleepy or fatigued, and less responsive, then usual despite his dementia. For these reasons, the patient will be admitted to the hospital for further evaluation and treatment was accepted for admission by the hospitalist, Dr Roman. - Differential Diagnosis CVA, TIA, substance abuse, dementia Critical Care Time: No Critical care attestation.: If time is entered above; I have spent that time in minutes in the direct care of this critically ill patient, excluding procedure time. ED Disposition Clinical Impression: Unresponsive episode, Renal insufficiency Altered mental status Qualifiers: Altered mental status type: unspecified Qualified Code(s): R41.82 - Altered mental status, unspecified Dementia Qualifiers: Dementia type: unspecified type Dementia behavioral disturbance: without behavioral disturbance Qualified Code(s): F03.90 - Unspecified dementia without behavioral disturbance Disposition: DC-09 OP ADMIT IP TO THIS HOSP Is pt being admited?: Yes Condition: Fair Referrals: CAITY GOETZ MD [Primary Care Provider] - 3-5 Days Time of Disposition: 13:56
[2019-07-18 12:32] LABS: Benzodiazepines Screen,Urine PRESUMPTIVE NEGATIVE; Cannabinoid Screen,Urine PRESUMPTIVE NEGATIVE; Cocaine Screen,Urine PRESUMPTIVE NEGATIVE; Methadone Screen,Urine PRESUMPTIVE NEGATIVE
[2019-07-18 12:33] LABS: Bacteria,Urine 1+ /HPF (Negative); Bilirubin,Urine NEG (Negative); Blood,Urine NEG (Negative); Color,Urine Yellow (Yellow); Mucus,Urine 2+ /HPF; Protein,Urine <15 mg/dL mg/dL (Negative)
[2019-07-18 13:05] LABS: Amphetamine Screen,Urine PRESUMPTIVE POSITIVE; Opiate Screen,Urine PRESUMPTIVE POSITIVE
--- NOTE | 2019-07-18 13:17 | History and Physical Report ---
History of Present Illness Chief complaint: He is more confused, and not eating History of present illness: 68 YO Male with Alzheimers Disease, Vascular Dementia without behavioral disturbance, HTN, DM, OA, CVA with RHP presents to ED for evaluation. Pt is confused and unable to provide history. Pt history provided by who is at bedside during exam and interview. As per , the patient has experienced progressive weakness, confusion and decreased oral intake over the past 1 month with intermittent improvement in symptoms. Pt is usually minimally verbal, and bedbound. Pt went to Adult Daycare, and was found to weak and confused with decreased participation. EMS notified, and upon arrival the patient was found to be in distress and transported to [facility]. Pt seen and evaluated in ED and found to have Encephalopathy, DUONG, ans well as End Stage Dementia. No further history obtainable. Pt admitted to [facility] unit and treated with IVF resuscitation therapy. Advance care planning conducted. Prior admission on 11/22/18 reviewed. All medication listed at time of admission has been reconciled. Pt is lethargic, but has positive gag reflex, and is able to protect his airway. Past History Past Medical History: arthritis, diabetes, hypertension, stroke, other (Dementia, Alzhemiers Disease) Past Surgical History: No surgical history, Other (reviewed) Social history: , lives with family Family history: diabetes, hypertension Medications and Allergies Allergies Allergy/AdvReac Type Severity Reaction Status Date / Time No Known Allergies Allergy Unverified 07/08/16 17:08 Home Medications Medication Instructions Recorded Confirmed Last Taken Type Citalopram [celeXA] 40 mg PO QDAY 07/08/16 07/18/19 07/17/19 History amLODIPine [Norvasc] 5 mg PO DAILY 07/08/16 07/18/19 07/17/19 History Restasis 0.05% 1 drops OD BID 07/09/16 07/18/19 07/16/19 History traZODone [Desyrel] 150 mg PO QHS 02/06/17 07/18/19 07/17/19 History Donepezil [Aricept] 10 mg PO QHS #30 tablet 02/10/17 07/18/19 07/17/19 Rx AtorvaSTATin [Lipitor] 40 mg PO QHS 11/29/17 07/18/19 07/17/19 History Clopidogrel [Plavix] 75 mg PO QDAY 11/29/17 07/18/19 07/17/19 History Lidocaine [Lidoderm] 1 each TP DAILY 11/29/17 07/18/19 07/17/19 History Lisinopril [Zestril] 40 mg PO DAILY 11/29/17 07/18/19 07/17/19 History Memantine HCl [Namenda Xr] 28 mg PO DAILY 11/29/17 07/18/19 07/17/19 History Tamsulosin [Flomax] 0.4 mg PO QHS 11/29/17 07/18/19 07/17/19 History Tizanidine HCl [tiZANidine] 2 mg PO QHS 11/29/17 07/18/19 07/17/19 History levETIRAcetam [Keppra] 500 mg PO BID 11/29/17 07/18/19 07/17/19 History traMADol [Ultram 50 MG tab] 50 mg PO BID 11/29/17 07/18/19 07/17/19 History Aspirin [Aspirin BABY CHEW TAB] 81 mg PO QDAY 07/18/19 07/18/19 07/17/19 History Haloperidol 0.5 mg SL Q4H 07/18/19 07/18/19 07/17/19 History Hyoscyamine Subl [Levsin Sl 0.125 0.125 mg SL Q4HR PRN 07/18/19 07/18/19 07/17/19 History TAB] LORazepam [Ativan] 1.5 mg PO Q4H PRN 07/18/19 07/18/19 07/14/19 History Morphine [Morphine ORAL SOLN 10 10 mg PO Q4HR 07/18/19 07/18/19 07/17/19 History MG/5 ML] Promethazine [Phenergan] 25 mg PO Q4H PRN 07/18/19 07/18/19 07/16/19 History Thera Tears 1% 1 drop OU QDAY 07/18/19 07/18/19 07/17/19 17:00 History hydroCHLOROthiazide [HCTZ] 25 mg PO QDAY 07/18/19 07/18/19 07/17/19 History Active Meds: Active Medications Sodium Chloride (Nacl 0.9% 1000 Ml) 1,000 mls @ 125 mls/hr IV ONCE ONE Stop: 07/18/19 19:31 Last Admin: 07/18/19 12:53 Dose: 125 mls/hr Documented by: Review of Systems ROS unobtainable: due to mental status Exam - Constitutional Vitals: Temp Pulse Resp BP Pulse Ox 58 L 10 L 91/49 92 07/18/19 11:06 07/18/19 11:06 07/18/19 11:06 07/18/19 11:06 General appearance: Present: mild distress - EENT Eyes: Present: PERRL ENT: hearing intact, clear oral mucosa - Neck Neck: Present: supple, normal ROM - Respiratory Respiratory effort: normal Respiratory: bilateral: CTA - Cardiovascular Heart Sounds: Present: S1 & S2. Absent: rub, click - Extremities Extremities: pulses symmetrical, No edema Peripheral Pulses: within normal limits - Abdominal General gastrointestinal: Present: soft, non-tender, non-distended, normal bowel sounds Male genitourinary: Present: normal - Integumentary Integumentary: Present: clear, warm, dry - Musculoskeletal Musculoskeletal: strength equal bilaterally, generalized weakness - Psychiatric Psychiatric: no appropriate mood/affect, no intact judgment & insight, no memory intact - Neurologic Neurologic: CNII-XII intact, moves all extremities, no gait normal Results - Labs CBC & Chem 7: 07/18/19 09:47 07/19/19 04:33 Labs: Abnormal lab results 07/18/19 07/18/19 Range/Units 09:47 09:47 MCV 97 H (84-94) fl MCH 33 H (28-32) pg Levy % (Auto) 13.0 H (0.0-7.3) % Levy # 0.9 H (0.0-0.8) K/mm3 Chloride 93.7 L (98-107) mmol/L Carbon Dioxide 32 H (22-30) mmol/L BUN 29 H (9-20) mg/dL Creatinine 1.6 H (0.8-1.5) mg/dL Glucose 123 H (75-100) mg/dL Assessment and Plan - Patient Problems (1) DUONG (acute kidney injury) Current Visit: No Status: Acute Plan to address problem: IVF resuscitation therapy, monitor uop q shift, avoid nephrotoxic agents, repeat bmp to monitor for improvement in serum creatnine. (2) Encephalopathy Current Visit: Yes Status: Acute Plan to address problem: CT Head, Neuro check, aspiration precautions, fall precautions, seizure precautions, supportive care, thyroid panel, (3) Dementia Current Visit: Yes Status: Acute Qualifiers: Dementia type: Alzheimer's disease Plan to address problem: Supportive care, continue medical management, Fall precautions. (4) Alzheimer disease Current Visit: Yes Status: Acute Qualifiers: Dementia behavioral disturbance: without behavioral disturbance Plan to address problem: Continue medical management, Supportive care. (5) Arthritis Current Visit: Yes Status: Acute Plan to address problem: Pain control, supportive care, (6) HTN (hypertension) Current Visit: Yes Status: Acute Qualifiers: Hypertension type: essential hypertension Qualified Code(s): I10 - Essential (primary) hypertension Plan to address problem: Monitor bp q shift, continue medical management. (7) Diabetes Current Visit: Yes Status: Acute Plan to address problem: ADA diet, insulin therapy, accu check, hypoglycemia protocol (8) DVT prophylaxis Current Visit: Yes Status: Acute Plan to address problem: SCD to BLE while in bed, prophylactic lovenox
[2019-07-18] MEDS ORDERED: ZOFRAN IV PRN (14:49)
[2019-07-18] MEDS ORDERED: SODIUM CHLORIDE FLUSH SYRINGE 10 ML IV PRN (14:49)
[2019-07-18] MEDS ORDERED: PROVENTIL IH PRN (14:49)
[2019-07-18] MEDS ORDERED: TYLENOL PO PRN (14:49)
[2019-07-18] MEDS ORDERED: MORPHINE IV PRN (14:49)
[2019-07-18] MEDS: NACL 0.9% 1000 ML 1,000 ML IV SCH (18:38)
[2019-07-18] MEDS: SODIUM CHLORIDE FLUSH SYRINGE 10 ML IV SCH (21:21)
[2019-07-19 05:37] LABS: Alanine Aminotransferase 9 units/L (7-56); Albumin 3.5 g/dL (3.9-5); BUN/Creatinine Ratio 25; Blood Urea Nitrogen 20 mg/dL (9-20); Calcium 9.1 mg/dL (8.4-10.2); Hemolysis Index 6
[2019-07-19] MEDS: NACL 0.9% 1000 ML 1,000 ML IV SCH ×2 (06:53→19:40)
[2019-07-19] MEDS ORDERED: LOVENOX SUB-Q SCH (10:00)
[2019-07-19] MEDS: LOVENOX SUB-Q SCH (10:01)
[2019-07-19] MEDS: SODIUM CHLORIDE FLUSH SYRINGE 10 ML IV SCH ×2 (10:02→21:48)
[2019-07-19] MEDS ORDERED: PHENERGAN PO PRN (11:08)
[2019-07-19] MEDS ORDERED: LEVSIN SL SL PRN (11:08)
[2019-07-19] MEDS ORDERED: ATIVAN PO PRN (11:08)
[2019-07-19] MEDS ORDERED: NON-FORMULARY (Memantine Hcl [Namenda Xr] 28 MG) PO SCH (11:15)
[2019-07-19] MEDS: HCTZ PO SCH (11:58)
[2019-07-19] MEDS: BABY ASPIRIN PO SCH (11:58)
[2019-07-19] MEDS: PLAVIX PO SCH (11:58)
[2019-07-19] MEDS ORDERED: celeXA PO SCH (12:00)
[2019-07-19] MEDS: celeXA PO SCH (12:13)
[2019-07-19] MEDS: KEPPRA PO SCH ×2 (12:13→21:33)
[2019-07-19] MEDS: NORVASC PO SCH (12:13)
[2019-07-19] MEDS: ZESTRIL PO SCH (12:13)
[2019-07-19] MEDS: LIDODERM 5% TD SCH (12:44)
[2019-07-19] MEDS: NAMENDA PO SCH ×2 (12:44→21:33)
[2019-07-19] MEDS: MORPHINE PO SCH ×3 (14:28→22:43)
--- NOTE | 2019-07-19 15:29 | Progress Note ---
Assessment and Plan Assessment and plan: 68-year-old man who presents to the hospital with altered mental status. He was at his adult daycare when he became unresponsive Medical history; hypertension, CVA with right-sided weakness, diabetes, o steoarthritis of upper extremities, noted history of Alzheimer's disease taking Labs Creatinine on admission was 1.6, UDS positive for amphetamines and opiates CT Head; extensive chronic changes, no acute changes Chest x-ray shows no significant findings Acute toxic metabolic encephalopathy -Patient is improving, unclear if there is a psychiatric component, mental health consult has been placed Acute kidney injury due to vasomotor nephropathy He received IV fluids, kidney function has now normalized Dementia Continue supportive care History of stroke Continue meds for secondary prevention DVT prophylaxis Chemical History Interval history: Patient has been somnolent. Try to arouse patients. He grimaces but does not open his eyes. He does not obey commands. He is not witnessed to have any discomforts, nursing staff states that he has been sleeping all day. Hospitalist Physical - Physical exam Narrative exam: General.: No distress HEENT: Moist mucous membranes, extraocular muscles intact, no lymphadenopathy Neck: supple Cardiac: S1-S2 heard Lungs: clear to auscultation bilaterally Abdomen: soft , nontender, nondistended, bowel sounds positive Extremities: no edema clubbing or cyanosis Skin: no rash or lesions Neurologic: Right-sided hemiparesis, right hand is contracted Psych: calm, Does not obey commands - Constitutional Vitals: Temp Pulse Resp BP Pulse Ox 99.5 F 60 18 166/73 99 07/19/19 13:29 07/19/19 13:29 07/19/19 13:29 07/19/19 13:29 07/19/19 13:29 General appearance: Present: mild distress Results - Labs CBC & Chem 7: 07/18/19 09:47 07/19/19 04:33 Labs: Laboratory Last Values WBC 6.7 K/mm3 (4.5-11.0) 07/18/19 09:47 RBC 4.31 M/mm3 (3.65-5.03) 07/18/19 09:47 Hgb 14.1 gm/dl (11.8-15.2) 07/18/19 09:47 Hct 42.0 % (35.5-45.6) 07/18/19 09:47 MCV 97 fl (84-94) H 07/18/19 09:47 MCH 33 pg (28-32) H 07/18/19 09:47 MCHC 34 % (32-34) 07/18/19 09:47 RDW 14.5 % (13.2-15.2) 07/18/19 09:47 Plt Count 231 K/mm3 (140-440) 07/18/19 09:47 Lymph % (Auto) 19.7 % (13.4-35.0) 07/18/19 09:47 [place] % (Auto) 13.0 % (0.0-7.3) H 07/18/19 09:47 Eos % (Auto) 1.8 % (0.0-4.3) 07/18/19 09:47 Baso % (Auto) 0.7 % (0.0-1.8) 07/18/19 09:47 Lymph # 1.3 K/mm3 (1.2-5.4) 07/18/19 09:47 [place] # 0.9 K/mm3 (0.0-0.8) H 07/18/19 09:47 Eos # 0.1 K/mm3 (0.0-0.4) 07/18/19 09:47 Baso # 0.0 K/mm3 (0.0-0.1) 07/18/19 09:47 Seg Neutrophils % 64.8 % (40.0-70.0) 07/18/19 09:47 Seg Neutrophils # 4.3 K/mm3 (1.8-7.7) 07/18/19 09:47 Sodium 140 mmol/L (137-145) 07/19/19 04:33 Potassium 3.7 mmol/L (3.6-5.0) 07/19/19 04:33 Chloride 101.8 mmol/L (98-107) 07/19/19 04:33 Carbon Dioxide 28 mmol/L (22-30) 07/19/19 04:33 14 mmol/L 07/19/19 04:33 BUN 20 mg/dL (9-20) 07/19/19 04:33 0.8 mg/dL (0.8-1.5) 07/19/19 04:33 Estimated GFR > 60 ml/min 07/19/19 04:33 25 % 07/19/19 04:33 Glucose 113 mg/dL (75-100) H 07/19/19 04:33 POC Glucose 85 (70-105) 07/19/19 12:01 Calcium 9.1 mg/dL (8.4-10.2) 07/19/19 04:33 0.20 mg/dL (0.1-1.2) 07/19/19 04:33 AST 11 units/L (5-40) 07/19/19 04:33 ALT 9 units/L (7-56) 07/19/19 04:33 68 units/L (35-129) 07/19/19 04:33 46.0 umol/L (25-60) 07/18/19 10:40 < 0.010 ng/mL (0.00-0.029) 07/18/19 09:47 6.3 g/dL (6.3-8.2) 07/19/19 04:33 3.5 g/dL (3.9-5) L 07/19/19 04:33 1.3 % 07/19/19 04:33 TSH 2.020 mlU/mL (0.270-4.200) 07/18/19 10:27 Yellow (Yellow) 07/18/19 12:11 Slightly-cloudy (Clear) 07/18/19 12:11 5.0 (5.0-7.0) 07/18/19 12:11 Ur Specific [place] 1.021 (1.003-1.030) 07/18/19 12:11 <15 mg/dl mg/dL (Negative) 07/18/19 12:11 Neg mg/dL (Negative) 07/18/19 12:11 Neg mg/dL (Negative) 07/18/19 12:11 Neg (Negative) 07/18/19 12:11 Neg (Negative) 07/18/19 12:11 Neg (Negative) 07/18/19 12:11 2.0 mg/dL (<2.0) 07/18/19 12:11 Ur Leukocyte Esterase Neg (Negative) 07/18/19 12:11 1.0 /HPF (0.0-6.0) 07/18/19 12:11 2.0 /HPF (0.0-6.0) 07/18/19 12:11 U Epithel Cells (Auto) 2.0 /HPF (0-13.0) 07/18/19 12:11 1+ /HPF (Negative) 07/18/19 12:11 2+ /HPF 07/18/19 12:11 Presumptive positive 07/18/19 12:11 Presumptive negative 07/18/19 12:11 Ur Barbiturates Screen Presumptive negative 07/18/19 12:11 Ur Phencyclidine Scrn Presumptive negative 07/18/19 12:11 Ur Amphetamines Screen Presumptive positive 07/18/19 12:11 U Benzodiazepines Scrn Presumptive negative 07/18/19 12:11 Presumptive negative 07/18/19 12:11 U Marijuana (THC) Screen Presumptive negative 07/18/19 12:11 Disclamer 07/18/19 12:11 Plasma/Serum Alcohol < 0.01 % (0-0.07) 07/18/19 10:27 Active Medications - Current Medications Current Medications: Generic Name Dose Route Start Last Admin Trade Name Freq PRN Reason Stop Dose Admin Acetaminophen 650 mg 07/18/19 14:49 07/18/19 22:53 Tylenol PO 650 mg Q4H PRN Administration Pain MILD(1-3)/Fever >100.5/NEIL Albuterol 2.5 mg 07/18/19 14:49 Proventil IH Q4HRT PRN Shortness Of Breath Amlodipine Besylate 5 mg 07/19/19 12:00 07/19/19 12:13 Norvasc PO 5 mg DAILY GLEN Administration Artificial Tears 2 drops 07/20/19 10:00 Isopto Tears 0.5% OU DAILY [facility] Aspirin 81 mg 07/19/19 12:00 07/19/19 11:58 Baby Aspirin PO 81 mg QDAY GLEN Administration Atorvastatin Calcium 40 mg 07/19/19 22:00 Lipitor PO QHS [facility] Citalopram Hydrobromide 40 mg 07/19/19 12:00 07/19/19 12:13 Celexa PO 40 mg DAILY GLEN Administration Clopidogrel Bisulfate 75 mg 07/19/19 12:00 07/19/19 11:58 Plavix PO 75 mg QDAY GLEN Administration Donepezil HCl 10 mg 07/19/19 22:00 Aricept PO QHS [facility] Enoxaparin Sodium 40 mg 07/19/19 10:00 07/19/19 10:01 Lovenox SUB-Q 40 mg QDAY@1000 GLEN Administration Hydrochlorothiazide 25 mg 07/19/19 12:00 07/19/19 11:58 Hctz PO 25 mg QDAY [facility]EN Administration Hyoscyamine 0.125 mg 07/19/19 11:08 Levsin Sl SL Q4HR PRN Spasms Sodium Chloride 1,000 mls @ 75 mls/hr 07/18/19 15:00 07/19/19 06:53 Nacl 0.9% 1000 Ml IV 75 mls/hr DIRECT [facility]EN Administration Levetiracetam 500 mg 07/19/19 12:00 07/19/19 12:13 Keppra PO 500 mg BID [facility]EN Administration Lidocaine 1 each 07/19/19 12:00 07/19/19 12:44 Lidoderm 5% TD 1 each DAILY [facility] Administration Lisinopril 40 mg 07/19/19 12:00 07/19/19 12:13 Zestril PO 40 mg DAILY [facility] Administration Lorazepam 1.5 mg 07/19/19 11:08 Ativan PO Q4H PRN Anxiety Memantine 10 mg 07/19/19 12:00 07/19/19 12:44 Namenda PO 10 mg Q12HR [facility] Administration Miscellaneous Medication 1 drops 07/19/19 22:00 Restasis 0.05% OD BID [facility]EN Morphine Sulfate 1 mg 07/18/19 14:49 07/19/19 04:30 Morphine IV 1 mg Q4H PRN Administration Pain, Moderate (4-6) Morphine Sulfate 10 mg 07/19/19 14:00 07/19/19 14:28 Morphine PO 10 mg Q4HR [facility] Administration Ondansetron HCl 4 mg 07/18/19 14:49 Zofran IV Q8H PRN Nausea And Vomiting Promethazine HCl 25 mg 07/19/19 11:08 Phenergan PO Q4H PRN Nausea Sodium Chloride 10 ml 07/18/19 22:00 07/19/19 10:02 Sodium Chloride Flush Syringe 10 Ml IV 10 ml BID [facility]EN Administration Sodium Chloride 10 ml 07/18/19 14:49 Sodium Chloride Flush Syringe 10 Ml IV PRN PRN LINE FLUSH Tamsulosin HCl 0.4 mg 07/19/19 22:00 Flomax PO QHS [facility] Tizanidine HCl 2 mg 07/19/19 22:00 Zanaflex PO QHS [facility] Tramadol HCl 50 mg 07/19/19 22:00 Ultram PO BID [facility] Trazodone HCl 150 mg 07/19/19 22:00 Desyrel PO QHS [facility]EN
--- NOTE | 2019-07-19 16:42 | XRay Report ---
CHEST 1 VIEW INDICATION: confusion COMPARISON: 11/22/2018 FINDINGS: Support devices: None Heart: Normal and unchanged Lungs/Pleura: No acute pulmonary or pleural findings. IMPRESSION: 1. No significant change. Signer Name: Tvao Beasley MD Signed: 07/19/2019 4:37 PM Workstation Name: [id number]
[2019-07-19] MEDS: DESYREL PO SCH (21:32)
[2019-07-19] MEDS: ULTRAM PO SCH (21:33)
[2019-07-19] MEDS: ARICEPT PO SCH (21:33)
[2019-07-19] MEDS: FLOMAX PO SCH (21:34)
[2019-07-19] MEDS: ZANAFLEX PO SCH (21:35)
[2019-07-19] MEDS: RESTASIS OP SCH (21:44)
[2019-07-19] MEDS ORDERED: NON-FORMULARY (Tizanidine Hcl [Tizanidine] 2 MG) PO SCH (22:00)
[2019-07-19] MEDS ORDERED: RESTASIS 0.05% OD SCH (22:00)
[2019-07-20] MEDS: MORPHINE PO SCH ×6 (02:00→22:13)
[2019-07-20] MEDS: NACL 0.9% 1000 ML 1,000 ML IV SCH ×2 (09:28→22:21)
[2019-07-20] MEDS: SODIUM CHLORIDE FLUSH SYRINGE 10 ML IV SCH ×2 (09:30→22:17)
[2019-07-20] MEDS: KEPPRA PO SCH ×2 (09:31→22:16)
[2019-07-20] MEDS: NAMENDA PO SCH ×2 (09:31→22:15)
[2019-07-20] MEDS: celeXA PO SCH (09:31)
[2019-07-20] MEDS: BABY ASPIRIN PO SCH (09:31)
[2019-07-20] MEDS: PLAVIX PO SCH (09:31)
[2019-07-20] MEDS: LOVENOX SUB-Q SCH (09:32)
[2019-07-20] MEDS: LIDODERM 5% TD SCH (09:33)
[2019-07-20] MEDS ORDERED: THERA TEARS OU SCH (10:00)
[2019-07-20] MEDS: ULTRAM PO SCH ×2 (10:24→22:15)
[2019-07-20] MEDS: RESTASIS OP SCH ×2 (10:24→22:21)
[2019-07-20] MEDS: ZESTRIL PO SCH (10:35)
[2019-07-20] MEDS: NORVASC PO SCH (10:35)
[2019-07-20] MEDS: HCTZ PO SCH (10:48)
[2019-07-20] MEDS: ISOPTO TEARS 0.5% OU SCH (11:40)
--- NOTE | 2019-07-20 17:47 | Progress Note ---
Assessment and Plan Assessment and plan: 68-year-old man who presents to the hospital with altered mental status. He was at his adult daycare when he became unresponsive Medical history; hypertension, CVA with right-sided weakness, diabetes, o steoarthritis of upper extremities, noted history of Alzheimer's disease taking Labs Creatinine on admission was 1.6, UDS positive for amphetamines and opiates CT Head; extensive chronic changes, no acute changes Chest x-ray shows no significant findings Acute toxic metabolic encephalopathy, polysubstance abuse -Patient is improving, unclear if there is a psychiatric component, mental health consult has been placed Acute kidney injury due to vasomotor nephropathy He received IV fluids, kidney function has now normalized Dementia Continue supportive care History of stroke Continue meds for secondary prevention DVT prophylaxis Chemical History Interval history: Has been awake. He opens eyes, does not speak, does not obey commands. No f ever, no noted discomfort, no seizures, no agitation Hospitalist Physical - Physical exam Narrative exam: General.: No distress HEENT: Moist mucous membranes, extraocular muscles intact, no lymphadenopathy Neck: supple Cardiac: S1-S2 heard Lungs: clear to auscultation bilaterally Abdomen: soft , nontender, nondistended, bowel sounds positive Extremities: no edema clubbing or cyanosis Skin: no rash or lesions Neurologic: Right-sided hemiparesis, right hand is contracted, move left side spontaneously, not moving right side Psych: calm, Does not obey commands, opens eyes, does not respond to voice commands, not verbal - Constitutional Vitals: Temp Pulse Resp BP Pulse Ox 98.5 F 57 L 18 136/55 96 07/20/19 13:36 07/20/19 13:36 07/20/19 13:36 07/20/19 13:36 07/20/19 13:36 General appearance: Present: mild distress Results - Labs CBC & Chem 7: 07/18/19 09:47 07/19/19 04:33 Labs: Laboratory Last Values WBC 6.7 K/mm3 (4.5-11.0) 07/18/19 09:47 RBC 4.31 M/mm3 (3.65-5.03) 07/18/19 09:47 Hgb 14.1 gm/dl (11.8-15.2) 07/18/19 09:47 Hct 42.0 % (35.5-45.6) 07/18/19 09:47 MCV 97 fl (84-94) H 07/18/19 09:47 MCH 33 pg (28-32) H 07/18/19 09:47 MCHC 34 % (32-34) 07/18/19 09:47 RDW 14.5 % (13.2-15.2) 07/18/19 09:47 Plt Count 231 K/mm3 (140-440) 07/18/19 09:47 Lymph % (Auto) 19.7 % (13.4-35.0) 07/18/19 09:47 [place] % (Auto) 13.0 % (0.0-7.3) H 07/18/19 09:47 Eos % (Auto) 1.8 % (0.0-4.3) 07/18/19 09:47 Baso % (Auto) 0.7 % (0.0-1.8) 07/18/19 09:47 Lymph # 1.3 K/mm3 (1.2-5.4) 07/18/19 09:47 [place] # 0.9 K/mm3 (0.0-0.8) H 07/18/19 09:47 Eos # 0.1 K/mm3 (0.0-0.4) 07/18/19 09:47 Baso # 0.0 K/mm3 (0.0-0.1) 07/18/19 09:47 Seg Neutrophils % 64.8 % (40.0-70.0) 07/18/19 09:47 Seg Neutrophils # 4.3 K/mm3 (1.8-7.7) 07/18/19 09:47 Sodium 140 mmol/L (137-145) 07/19/19 04:33 Potassium 3.7 mmol/L (3.6-5.0) 07/19/19 04:33 Chloride 101.8 mmol/L (98-107) 07/19/19 04:33 Carbon Dioxide 28 mmol/L (22-30) 07/19/19 04:33 14 mmol/L 07/19/19 04:33 BUN 20 mg/dL (9-20) 07/19/19 04:33 0.8 mg/dL (0.8-1.5) 07/19/19 04:33 Estimated GFR > 60 ml/min 07/19/19 04:33 25 % 07/19/19 04:33 Glucose 113 mg/dL (75-100) H 07/19/19 04:33 POC Glucose 82 (70-105) 07/20/19 16:36 Calcium 9.1 mg/dL (8.4-10.2) 07/19/19 04:33 0.20 mg/dL (0.1-1.2) 07/19/19 04:33 AST 11 units/L (5-40) 07/19/19 04:33 ALT 9 units/L (7-56) 07/19/19 04:33 68 units/L (35-129) 07/19/19 04:33 46.0 umol/L (25-60) 07/18/19 10:40 < 0.010 ng/mL (0.00-0.029) 07/18/19 09:47 6.3 g/dL (6.3-8.2) 07/19/19 04:33 3.5 g/dL (3.9-5) L 07/19/19 04:33 1.3 % 07/19/19 04:33 TSH 2.020 mlU/mL (0.270-4.200) 07/18/19 10:27 Yellow (Yellow) 07/18/19 12:11 Slightly-cloudy (Clear) 07/18/19 12:11 5.0 (5.0-7.0) 07/18/19 12:11 Ur Specific [place] 1.021 (1.003-1.030) 07/18/19 12:11 <15 mg/dl mg/dL (Negative) 07/18/19 12:11 Neg mg/dL (Negative) 07/18/19 12:11 Neg mg/dL (Negative) 07/18/19 12:11 Neg (Negative) 07/18/19 12:11 Neg (Negative) 07/18/19 12:11 Neg (Negative) 07/18/19 12:11 2.0 mg/dL (<2.0) 07/18/19 12:11 Ur Leukocyte Esterase Neg (Negative) 07/18/19 12:11 1.0 /HPF (0.0-6.0) 07/18/19 12:11 2.0 /HPF (0.0-6.0) 07/18/19 12:11 U Epithel Cells (Auto) 2.0 /HPF (0-13.0) 07/18/19 12:11 1+ /HPF (Negative) 07/18/19 12:11 2+ /HPF 07/18/19 12:11 Presumptive positive 07/18/19 12:11 Presumptive negative 07/18/19 12:11 Ur Barbiturates Screen Presumptive negative 07/18/19 12:11 Ur Phencyclidine Scrn Presumptive negative 07/18/19 12:11 Ur Amphetamines Screen Presumptive positive 07/18/19 12:11 U Benzodiazepines Scrn Presumptive negative 07/18/19 12:11 Presumptive negative 07/18/19 12:11 U Marijuana (THC) Screen Presumptive negative 07/18/19 12:11 Disclamer 07/18/19 12:11 Plasma/Serum Alcohol < 0.01 % (0-0.07) 07/18/19 10:27 Active Medications - Current Medications Current Medications: Generic Name Dose Route Start Last Admin Trade Name Freq PRN Reason Stop Dose Admin Acetaminophen 650 mg 07/18/19 14:49 07/18/19 22:53 Tylenol PO 650 mg Q4H PRN Administration Pain MILD(1-3)/Fever >100.5/NEIL Albuterol 2.5 mg 07/18/19 14:49 Proventil IH Q4HRT PRN Shortness Of Breath Amlodipine Besylate 5 mg 07/19/19 12:00 07/20/19 10:35 Norvasc PO 5 mg DAILY GLEN Administration Artificial Tears 2 drops 07/20/19 10:00 07/20/19 11:40 Isopto Tears 0.5% OU 2 drops DAILY GLEN Administration Aspirin 81 mg 07/19/19 12:00 07/20/19 09:31 Baby Aspirin PO 81 mg QDAY GLEN Administration Atorvastatin Calcium 40 mg 07/19/19 22:00 07/19/19 21:34 Lipitor PO 40 mg QHS GLEN Administration Citalopram Hydrobromide 40 mg 07/19/19 12:00 07/20/19 09:31 Celexa PO 40 mg DAILY GLEN Administration Clopidogrel Bisulfate 75 mg 07/19/19 12:00 07/20/19 09:31 Plavix PO 75 mg QDAY GLEN Administration Cyclosporine 1 each 07/19/19 22:00 07/20/19 10:24 Restasis (Nf) OP 1 each BID GLEN Administration Donepezil HCl 10 mg 07/19/19 22:00 07/19/19 21:33 Aricept PO 10 mg QHS GLEN Administration Enoxaparin Sodium 40 mg 07/19/19 10:00 07/20/19 09:32 Lovenox SUB-Q 40 mg QDAY@1000 GLEN Administration Hydrochlorothiazide 25 mg 07/19/19 12:00 07/20/19 10:48 Hctz PO 25 mg QDAY GLEN Administration Hyoscyamine 0.125 mg 07/19/19 11:08 Levsin Sl SL Q4HR PRN Spasms Sodium Chloride 1,000 mls @ 75 mls/hr 07/18/19 15:00 07/20/19 09:28 Nacl 0.9% 1000 Ml IV 75 mls/hr DIRECT GLEN Administration Levetiracetam 500 mg 07/19/19 12:00 07/20/19 09:31 Keppra PO 500 mg BID GLEN Administration Lidocaine 1 each 07/19/19 12:00 07/20/19 09:33 Lidoderm 5% TD 1 each DAILY GLEN Administration Lisinopril 40 mg 07/19/19 12:00 07/20/19 10:35 Zestril PO 40 mg DAILY GLEN Administration Lorazepam 1.5 mg 07/19/19 11:08 Ativan PO Q4H PRN Anxiety Memantine 10 mg 07/19/19 12:00 07/20/19 09:31 Namenda PO 10 mg Q12HR GLEN Administration Morphine Sulfate 1 mg 07/18/19 14:49 07/19/19 04:30 Morphine IV 1 mg Q4H PRN Administration Pain, Moderate (4-6) Morphine Sulfate 10 mg 07/19/19 14:00 07/20/19 14:32 Morphine PO 10 mg Q4HR GLEN Administration Ondansetron HCl 4 mg 07/18/19 14:49 Zofran IV Q8H PRN Nausea And Vomiting Promethazine HCl 25 mg 07/19/19 11:08 Phenergan PO Q4H PRN Nausea Sodium Chloride 10 ml 07/18/19 22:00 07/20/19 09:30 Sodium Chloride Flush Syringe 10 Ml IV 10 ml BID GLEN Administration Sodium Chloride 10 ml 07/18/19 14:49 Sodium Chloride Flush Syringe 10 Ml IV PRN PRN LINE FLUSH Tamsulosin HCl 0.4 mg 07/19/19 22:00 07/19/19 21:34 Flomax PO 0.4 mg QHS GLEN Administration Tizanidine HCl 2 mg 07/19/19 22:00 07/19/19 21:35 Zanaflex PO 2 mg QHS GLEN Administration Tramadol HCl 50 mg 07/19/19 22:00 07/20/19 10:24 Ultram PO 50 mg BID GLEN Administration Trazodone HCl 150 mg 07/19/19 22:00 07/19/19 21:32 Desyrel PO 150 mg QHS GLEN Administration
[2019-07-20] MEDS: DESYREL PO SCH (22:15)
[2019-07-20] MEDS: ARICEPT PO SCH (22:15)
[2019-07-20] MEDS: FLOMAX PO SCH (22:15)
[2019-07-20] MEDS: ZANAFLEX PO SCH (22:16)
[2019-07-21] MEDS: MORPHINE PO SCH ×6 (02:47→22:57)
--- NOTE | 2019-07-21 07:23 | Progress Note ---
Assessment and Plan Assessment and plan: 68-year-old man who presents to the hospital with altered mental status. He was at his adult daycare when he became unresponsive Medical history; hypertension, CVA with right-sided weakness, diabetes, o steoarthritis of upper extremities, noted history of Alzheimer's disease taking Labs Creatinine on admission was 1.6, UDS positive for amphetamines and opiates CT Head; extensive chronic changes, no acute changes Chest x-ray shows no significant findings Acute toxic metabolic encephalopathy, polysubstance abuse -Patient is improving, unclear if there is a psychiatric component, mental health consult has been placed neurology consult, patient was apparently verbal during last admission. asked CM to contact family/ cartakers to obtain collateral data Acute kidney injury due to vasomotor nephropathy He received IV fluids, kidney function has now normalized Dementia Continue supportive care History of stroke Continue meds for secondary prevention DVT prophylaxis Chemical History Interval history: Has been awake. He opens eyes, does not speak, does not obey commands. No fever, no noted discomfort, no seizures, no agitation Hospitalist Physical - Physical exam Narrative exam: General.: No distress HEENT: Moist mucous membranes, extraocular muscles intact, no lymphadenopathy Neck: supple Cardiac: S1-S2 heard Lungs: clear to auscultation bilaterally Abdomen: soft , nontender, nondistended, bowel sounds positive Extremities: no edema clubbing or cyanosis Skin: no rash or lesions Neurologic: Right-sided hemiparesis, right hand is contracted,Moves all ex tremities spontaneously Psych: calm, Does not obey commands, opens eyes, does not respond to voice c ommands, not verbal - Constitutional Vitals: Temp Pulse Resp BP Pulse Ox 97.9 F 55 L 18 138/64 95 07/21/19 01:47 07/21/19 06:37 07/21/19 01:47 07/21/19 01:47 07/21/19 01:47 General appearance: Present: mild distress Results - Labs CBC & Chem 7: 07/18/19 09:47 07/19/19 04:33 Labs: Laboratory Last Values WBC 6.7 K/mm3 (4.5-11.0) 07/18/19 09:47 RBC 4.31 M/mm3 (3.65-5.03) 07/18/19 09:47 Hgb 14.1 gm/dl (11.8-15.2) 07/18/19 09:47 Hct 42.0 % (35.5-45.6) 07/18/19 09:47 MCV 97 fl (84-94) H 07/18/19 09:47 MCH 33 pg (28-32) H 07/18/19 09:47 MCHC 34 % (32-34) 07/18/19 09:47 RDW 14.5 % (13.2-15.2) 07/18/19 09:47 Plt Count 231 K/mm3 (140-440) 07/18/19 09:47 Lymph % (Auto) 19.7 % (13.4-35.0) 07/18/19 09:47 [place] % (Auto) 13.0 % (0.0-7.3) H 07/18/19 09:47 Eos % (Auto) 1.8 % (0.0-4.3) 07/18/19 09:47 Baso % (Auto) 0.7 % (0.0-1.8) 07/18/19 09:47 Lymph # 1.3 K/mm3 (1.2-5.4) 07/18/19 09:47 [place] # 0.9 K/mm3 (0.0-0.8) H 07/18/19 09:47 Eos # 0.1 K/mm3 (0.0-0.4) 07/18/19 09:47 Baso # 0.0 K/mm3 (0.0-0.1) 07/18/19 09:47 Seg Neutrophils % 64.8 % (40.0-70.0) 07/18/19 09:47 Seg Neutrophils # 4.3 K/mm3 (1.8-7.7) 07/18/19 09:47 Sodium 140 mmol/L (137-145) 07/19/19 04:33 Potassium 3.7 mmol/L (3.6-5.0) 07/19/19 04:33 Chloride 101.8 mmol/L (98-107) 07/19/19 04:33 Carbon Dioxide 28 mmol/L (22-30) 07/19/19 04:33 14 mmol/L 07/19/19 04:33 BUN 20 mg/dL (9-20) 07/19/19 04:33 0.8 mg/dL (0.8-1.5) 07/19/19 04:33 Estimated GFR > 60 ml/min 07/19/19 04:33 25 % 07/19/19 04:33 Glucose 113 mg/dL (75-100) H 07/19/19 04:33 POC Glucose 143 (70-105) H 07/20/19 20:44 Calcium 9.1 mg/dL (8.4-10.2) 07/19/19 04:33 0.20 mg/dL (0.1-1.2) 07/19/19 04:33 AST 11 units/L (5-40) 07/19/19 04:33 ALT 9 units/L (7-56) 07/19/19 04:33 68 units/L (35-129) 07/19/19 04:33 46.0 umol/L (25-60) 07/18/19 10:40 < 0.010 ng/mL (0.00-0.029) 07/18/19 09:47 6.3 g/dL (6.3-8.2) 07/19/19 04:33 3.5 g/dL (3.9-5) L 07/19/19 04:33 1.3 % 07/19/19 04:33 TSH 2.020 mlU/mL (0.270-4.200) 07/18/19 10:27 Yellow (Yellow) 07/18/19 12:11 Slightly-cloudy (Clear) 07/18/19 12:11 5.0 (5.0-7.0) 07/18/19 12:11 Ur Specific [place] 1.021 (1.003-1.030) 07/18/19 12:11 <15 mg/dl mg/dL (Negative) 07/18/19 12:11 Neg mg/dL (Negative) 07/18/19 12:11 Neg mg/dL (Negative) 07/18/19 12:11 Neg (Negative) 07/18/19 12:11 Neg (Negative) 07/18/19 12:11 Neg (Negative) 07/18/19 12:11 2.0 mg/dL (<2.0) 07/18/19 12:11 Ur Leukocyte Esterase Neg (Negative) 07/18/19 12:11 1.0 /HPF (0.0-6.0) 07/18/19 12:11 2.0 /HPF (0.0-6.0) 07/18/19 12:11 U Epithel Cells (Auto) 2.0 /HPF (0-13.0) 07/18/19 12:11 1+ /HPF (Negative) 07/18/19 12:11 2+ /HPF 07/18/19 12:11 Presumptive positive 07/18/19 12:11 Presumptive negative 07/18/19 12:11 Ur Barbiturates Screen Presumptive negative 07/18/19 12:11 Ur Phencyclidine Scrn Presumptive negative 07/18/19 12:11 Ur Amphetamines Screen Presumptive positive 07/18/19 12:11 U Benzodiazepines Scrn Presumptive negative 07/18/19 12:11 Presumptive negative 07/18/19 12:11 U Marijuana (THC) Screen Presumptive negative 07/18/19 12:11 Disclamer 07/18/19 12:11 Plasma/Serum Alcohol < 0.01 % (0-0.07) 07/18/19 10:27 Active Medications - Current Medications Current Medications: Generic Name Dose Route Start Last Admin Trade Name Freq PRN Reason Stop Dose Admin Acetaminophen 650 mg 07/18/19 14:49 07/18/19 22:53 Tylenol PO 650 mg Q4H PRN Administration Pain MILD(1-3)/Fever >100.5/NEIL Albuterol 2.5 mg 07/18/19 14:49 Proventil IH Q4HRT PRN Shortness Of Breath Amlodipine Besylate 5 mg 07/19/19 12:00 07/20/19 10:35 Norvasc PO 5 mg DAILY GLEN Administration Artificial Tears 2 drops 07/20/19 10:00 07/20/19 11:40 Isopto Tears 0.5% OU 2 drops DAILY GLEN Administration Aspirin 81 mg 07/19/19 12:00 07/20/19 09:31 Baby Aspirin PO 81 mg QDAY GLEN Administration Atorvastatin Calcium 40 mg 07/19/19 22:00 07/20/19 22:15 Lipitor PO 40 mg QHS GLEN Administration Citalopram Hydrobromide 40 mg 07/19/19 12:00 07/20/19 09:31 Celexa PO 40 mg DAILY GLEN Administration Clopidogrel Bisulfate 75 mg 07/19/19 12:00 07/20/19 09:31 Plavix PO 75 mg QDAY GLEN Administration Cyclosporine 1 each 07/19/19 22:00 07/20/19 22:21 Restasis (Nf) OP 1 each BID GLEN Administration Donepezil HCl 10 mg 07/19/19 22:00 07/20/19 22:15 Aricept PO 10 mg QHS GLEN Administration Enoxaparin Sodium 40 mg 07/19/19 10:00 07/20/19 09:32 Lovenox SUB-Q 40 mg QDAY@1000 GLEN Administration Hydrochlorothiazide 25 mg 07/19/19 12:00 07/20/19 10:48 Hctz PO 25 mg QDAY GLEN Administration Hyoscyamine 0.125 mg 07/19/19 11:08 Levsin Sl SL Q4HR PRN Spasms Sodium Chloride 1,000 mls @ 75 mls/hr 07/18/19 15:00 07/20/19 22:21 Nacl 0.9% 1000 Ml IV 75 mls/hr DIRECT GLEN Administration Levetiracetam 500 mg 07/19/19 12:00 07/20/19 22:16 Keppra PO 500 mg BID GLEN Administration Lidocaine 1 each 07/19/19 12:00 07/20/19 09:33 Lidoderm 5% TD 1 each DAILY GLEN Administration Lisinopril 40 mg 07/19/19 12:00 07/20/19 10:35 Zestril PO 40 mg DAILY GLEN Administration Lorazepam 1.5 mg 07/19/19 11:08 Ativan PO Q4H PRN Anxiety Memantine 10 mg 07/19/19 12:00 07/20/19 22:15 Namenda PO 10 mg Q12HR GLEN Administration Morphine Sulfate 1 mg 07/18/19 14:49 07/19/19 04:30 Morphine IV 1 mg Q4H PRN Administration Pain, Moderate (4-6) Morphine Sulfate 10 mg 07/19/19 14:00 07/21/19 05:33 Morphine PO 10 mg Q4HR GLEN Administration Ondansetron HCl 4 mg 07/18/19 14:49 Zofran IV Q8H PRN Nausea And Vomiting Promethazine HCl 25 mg 07/19/19 11:08 Phenergan PO Q4H PRN Nausea Sodium Chloride 10 ml 07/18/19 22:00 07/20/19 22:17 Sodium Chloride Flush Syringe 10 Ml IV 10 ml BID GLEN Administration Sodium Chloride 10 ml 07/18/19 14:49 Sodium Chloride Flush Syringe 10 Ml IV PRN PRN LINE FLUSH Tamsulosin HCl 0.4 mg 07/19/19 22:00 07/20/19 22:15 Flomax PO 0.4 mg QHS GLEN Administration Tizanidine HCl 2 mg 07/19/19 22:00 07/20/19 22:16 Zanaflex PO 2 mg QHS GLEN Administration Tramadol HCl 50 mg 07/19/19 22:00 07/20/19 22:15 Ultram PO 50 mg BID GLEN Administration Trazodone HCl 150 mg 07/19/19 22:00 07/20/19 22:15 Desyrel PO 150 mg QHS GLEN Administration
[2019-07-21] MEDS: PLAVIX PO SCH (09:42)
[2019-07-21] MEDS: NORVASC PO SCH (09:42)
[2019-07-21] MEDS: ZESTRIL PO SCH (09:43)
[2019-07-21] MEDS: ISOPTO TEARS 0.5% OU SCH (09:44)
[2019-07-21] MEDS: NAMENDA PO SCH ×2 (09:44→22:55)
[2019-07-21] MEDS: BABY ASPIRIN PO SCH (09:44)
[2019-07-21] MEDS: celeXA PO SCH (09:44)
[2019-07-21] MEDS: KEPPRA PO SCH ×2 (09:44→22:56)
[2019-07-21] MEDS: LIDODERM 5% TD SCH (09:45)
[2019-07-21] MEDS: LOVENOX SUB-Q SCH (09:50)
[2019-07-21] MEDS: HCTZ PO SCH (09:50)
[2019-07-21] MEDS: ULTRAM PO SCH ×2 (09:56→22:55)
[2019-07-21] MEDS: SODIUM CHLORIDE FLUSH SYRINGE 10 ML IV SCH ×2 (09:58→22:58)
[2019-07-21] MEDS: RESTASIS OP SCH ×2 (10:45→22:57)
--- NOTE | 2019-07-21 13:57 | Consultation ---
History of Present Illness Consult date: 07/21/19 Reason for Consult: Altered mental status Chief complaint: Altered mental status History of present illness: Patient is a 60-year-old man with a history of hypertension, diabetes, history of stroke with residual right arm weakness, Alzheimer's disease, hyperlipidemia, history of seizures. Patient was noted to have an episode while at adult day care on Sunday, described as responsiveness. Patient's states that he was found to have low blood pressure and low pulse rate at the time this episode. Patient was then brought to the ER on Sunday. At baseline, his states that he has significant dementia, and has some good and bad days. He states that he occasionally does not speak much, and requires assistance with ADLs. Patient is occasionally able to speak in short sentences at baseline. Patient does not walk at baseline. Past History Past Medical History: arthritis, diabetes, hypertension, stroke, other (Dementia, Alzhemiers Disease) Past Surgical History: No surgical history, Other (reviewed) Social history: , lives with family Family history: diabetes, hypertension Medications and Allergies Allergies Allergy/AdvReac Type Severity Reaction Status Date / Time No Known Allergies Allergy Unverified 07/08/16 17:08 Home Medications Medication Instructions Recorded Confirmed Last Taken Type Citalopram [celeXA] 40 mg PO QDAY 07/08/16 07/18/19 07/17/19 History amLODIPine [Norvasc] 5 mg PO DAILY 07/08/16 07/18/19 07/17/19 History Restasis 0.05% 1 drops OD BID 07/09/16 07/18/19 07/16/19 History traZODone [Desyrel] 150 mg PO QHS 02/06/17 07/18/19 07/17/19 History Donepezil [Aricept] 10 mg PO QHS #30 tablet 02/10/17 07/18/19 07/17/19 Rx AtorvaSTATin [Lipitor] 40 mg PO QHS 11/29/17 07/18/19 07/17/19 History Clopidogrel [Plavix] 75 mg PO QDAY 11/29/17 07/18/19 07/17/19 History Lidocaine [Lidoderm] 1 each TP DAILY 11/29/17 07/18/19 07/17/19 History Lisinopril [Zestril] 40 mg PO DAILY 11/29/17 07/18/19 07/17/19 History Memantine HCl [Namenda Xr] 28 mg PO DAILY 11/29/17 07/18/19 07/17/19 History Tamsulosin [Flomax] 0.4 mg PO QHS 11/29/17 07/18/19 07/17/19 History Tizanidine HCl [tiZANidine] 2 mg PO QHS 11/29/17 07/18/19 07/17/19 History levETIRAcetam [Keppra] 500 mg PO BID 11/29/17 07/18/19 07/17/19 History traMADol [Ultram 50 MG tab] 50 mg PO BID 11/29/17 07/18/19 07/17/19 History Aspirin [Aspirin BABY CHEW TAB] 81 mg PO QDAY 07/18/19 07/18/19 07/17/19 History Haloperidol 0.5 mg SL Q4H 07/18/19 07/18/19 07/17/19 History Hyoscyamine Subl [Levsin Sl 0.125 0.125 mg SL Q4HR PRN 07/18/19 07/18/19 07/17/19 History TAB] LORazepam [Ativan] 1.5 mg PO Q4H PRN 07/18/19 07/18/19 07/14/19 History Morphine [Morphine ORAL SOLN 10 10 mg PO Q4HR 07/18/19 07/18/19 07/17/19 History MG/5 ML] Promethazine [Phenergan] 25 mg PO Q4H PRN 07/18/19 07/18/19 07/16/19 History Thera Tears 1% 1 drop OU QDAY 07/18/19 07/18/19 07/17/19 17:00 History hydroCHLOROthiazide [HCTZ] 25 mg PO QDAY 07/18/19 07/18/19 07/17/19 History Active Meds: Active Medications Acetaminophen (Tylenol) 650 mg PO Q4H PRN PRN Reason: Pain MILD(1-3)/Fever >100.5/NEIL Last Admin: 07/18/19 22:53 Dose: 650 mg Documented by: Albuterol (Proventil) 2.5 mg IH Q4HRT PRN PRN Reason: Shortness Of Breath Amlodipine Besylate (Norvasc) 5 mg PO DAILY [facility] Last Admin: 07/21/19 09:42 Dose: 5 mg Documented by: Artificial Tears (Isopto Tears 0.5%) 2 drops OU DAILY [facility] Last Admin: 07/21/19 09:44 Dose: 2 drops Documented by: Aspirin (Baby Aspirin) 81 mg PO QDAY [facility] Last Admin: 07/21/19 09:44 Dose: 81 mg Documented by: Atorvastatin Calcium (Lipitor) 40 mg PO QHS [facility] Last Admin: 07/20/19 22:15 Dose: 40 mg Documented by: Citalopram Hydrobromide (Celexa) 40 mg PO DAILY [facility] Last Admin: 07/21/19 09:44 Dose: 40 mg Documented by: Clopidogrel Bisulfate (Plavix) 75 mg PO QDAY [facility] Last Admin: 07/21/19 09:42 Dose: 75 mg Documented by: Cyclosporine (Restasis (Nf)) 1 each OP BID [facility] Last Admin: 07/21/19 10:45 Dose: 1 each Documented by: Donepezil HCl (Aricept) 10 mg PO QHS [facility] Last Admin: 07/20/19 22:15 Dose: 10 mg Documented by: Enoxaparin Sodium (Lovenox) 40 mg SUB-Q QDAY@1000 [facility] Last Admin: 07/21/19 09:50 Dose: 40 mg Documented by: Hydrochlorothiazide (Hctz) 25 mg PO QDAY [facility] Last Admin: 07/21/19 09:50 Dose: 25 mg Documented by: Hyoscyamine (Levsin Sl) 0.125 mg SL Q4HR PRN PRN Reason: Spasms Sodium Chloride (Nacl 0.9% 1000 Ml) 1,000 mls @ 75 mls/hr IV DIRECT [facility] Last Admin: 07/20/19 22:21 Dose: 75 mls/hr Documented by: Levetiracetam (Keppra) 500 mg PO BID [facility] Last Admin: 07/21/19 09:44 Dose: 500 mg Documented by: Lidocaine (Lidoderm 5%) 1 each TD DAILY [facility] Last Admin: 07/21/19 09:45 Dose: 1 each Documented by: Lisinopril (Zestril) 40 mg PO DAILY [facility] Last Admin: 07/21/19 09:43 Dose: 40 mg Documented by: Lorazepam (Ativan) 1.5 mg PO Q4H PRN PRN Reason: Anxiety Memantine (Namenda) 10 mg PO Q12HR [facility] Last Admin: 07/21/19 09:44 Dose: 10 mg Documented by: Morphine Sulfate (Morphine) 1 mg IV Q4H PRN PRN Reason: Pain, Moderate (4-6) Last Admin: 07/19/19 04:30 Dose: 1 mg Documented by: Morphine Sulfate (Morphine) 10 mg PO Q4HR [facility] Last Admin: 07/21/19 13:14 Dose: Not Given Documented by: Ondansetron HCl (Zofran) 4 mg IV Q8H PRN PRN Reason: Nausea And Vomiting Promethazine HCl (Phenergan) 25 mg PO Q4H PRN PRN Reason: Nausea Sodium Chloride (Sodium Chloride Flush Syringe 10 Ml) 10 ml IV BID [facility] Last Admin: 07/21/19 09:58 Dose: Not Given Documented by: Sodium Chloride (Sodium Chloride Flush Syringe 10 Ml) 10 ml IV PRN PRN PRN Reason: LINE FLUSH Tamsulosin HCl (Flomax) 0.4 mg PO QHS [facility] Last Admin: 07/20/19 22:15 Dose: 0.4 mg Documented by: Tizanidine HCl (Zanaflex) 2 mg PO QHS [facility] Last Admin: 07/20/19 22:16 Dose: 2 mg Documented by: Tramadol HCl (Ultram) 50 mg PO BID [facility] Last Admin: 07/21/19 09:56 Dose: 50 mg Documented by: Trazodone HCl (Desyrel) 150 mg PO QHS [facility] Last Admin: 07/20/19 22:15 Dose: 150 mg Documented by: Review of Systems ROS unobtainable: due to mental status Physical Examination - Vital Signs Vital Signs: Vital Signs Pulse Resp BP Pulse Ox 56 L 14 138/58 96 07/18/19 09:43 07/18/19 09:43 07/18/19 09:43 07/18/19 09:43 - Physical Exam Narrative exam: Patient awake, only responding in 1 word answers by saying yes. Follows midline and one step commands. Not able to follow 2 step complex commands. Noted to have contracture of right arm. Strength is 3 out of 5 in left upper, bilateral lower extremities, 2 out of 5 in right upper extremity. Reflexes increased in right upper extremity to 3+. Remainder of extremity reflexes are 2+. - Constitutional General appearance: comfortable - EENT EENT: Present: ATNC, PERRL, mucous membranes moist, hearing intact, vision intact - Respiratory Respiratory: Present: lungs clear, normal breath sounds - Cardiovascular Cardiovascular: Present: regular rate, normal S1, normal S2 Extremities: Present: no peripheral edema bilatateraly, no clubbing, cyanosis - Gastrointestinal Gastrointestinal: Present: normoactive bowel sounds, soft, non-tender - Integumentary Integumentary: Present: normal - Neurologic Cranial nerve examination: PERRL, EOMI, VFF, face symmetric, tongue midline - Musculoskeletal Musculoskeletal: Present: no pain Results - Laboratory Findings CBC and BMP: 07/18/19 09:47 07/19/19 04:33 Abnormal Lab Findings: Abnormal Labs 07/18/19 07/18/19 07/18/19 09:47 09:47 18:06 MCV 97 H MCH 33 H [place] % (Auto) 13.0 H [place] # 0.9 H Chloride 93.7 L Carbon Dioxide 32 H BUN 29 H Creatinine 1.6 H Glucose 123 H POC Glucose 115 H Albumin 07/19/19 07/19/19 07/19/19 04:33 07:36 21:57 MCV MCH [place] % (Auto) [place] # Chloride Carbon Dioxide BUN Creatinine Glucose 113 H POC Glucose 107 H 136 H Albumin 3.5 L 07/20/19 07/20/19 07/21/19 11:28 20:44 11:28 MCV MCH [place] % (Auto) [place] # Chloride Carbon Dioxide BUN Creatinine Glucose POC Glucose 196 H 143 H 168 H Albumin Assessment and Plan Patient is a 60-year-old man with a history of hypertension, diabetes, history of stroke with residual right arm weakness, Alzheimer's disease, hyperlipidemia, history of seizures. Patient had an episode of unresponsiveness on admission. According the patient's clinical findings, the patient may have had a seizure, or they've had a hypotensive episode causing the decrease in responsiveness. Patient was also found to have acute kidney injury on admission, which is now improved. Plan: We'll increase Keppra to 1000 mg twice a day. CT scan did not reveal any acute abnormalities, however patient has notable cerebral atrophy. DUONG is now improved. Spoke with patient's , and it appears that patient is now improved in mental status and almost at baseline. - Will continue to follow. -Thank you for allowing me to be involved in the care of this patient. Nilton Gordon MD Neurology
[2019-07-21] MEDS: DESYREL PO SCH (22:54)
[2019-07-21] MEDS: ARICEPT PO SCH (22:54)
[2019-07-21] MEDS: FLOMAX PO SCH (22:54)
[2019-07-21] MEDS: ZANAFLEX PO SCH (22:55)
[2019-07-22] MEDS: MORPHINE PO SCH ×6 (02:09→21:25)
[2019-07-22] MEDS: ISOPTO TEARS 0.5% OU SCH (09:32)
[2019-07-22] MEDS: NAMENDA PO SCH ×2 (09:33→21:24)
[2019-07-22] MEDS: LIDODERM 5% TD SCH (09:33)
[2019-07-22] MEDS: PLAVIX PO SCH (09:34)
[2019-07-22] MEDS: LOVENOX SUB-Q SCH (09:35)
[2019-07-22] MEDS: HCTZ PO SCH (09:35)
[2019-07-22] MEDS: KEPPRA PO SCH ×2 (09:36→21:24)
[2019-07-22] MEDS: celeXA PO SCH (09:36)
[2019-07-22] MEDS: ZESTRIL PO SCH (09:37)
[2019-07-22] MEDS: ULTRAM PO SCH ×2 (09:38→21:23)
[2019-07-22] MEDS: NORVASC PO SCH (09:38)
[2019-07-22] MEDS: SODIUM CHLORIDE FLUSH SYRINGE 10 ML IV SCH ×2 (09:39→21:25)
[2019-07-22] MEDS: BABY ASPIRIN PO SCH (09:39)
[2019-07-22] MEDS: RESTASIS OP SCH ×2 (09:47→21:23)
--- NOTE | 2019-07-22 13:19 | Progress Note ---
Assessment and Plan Assessment and plan: Patient is a 68-year-old man with a history of hypertension, DM type 2, stroke with residual right arm weakness, Alzheimer's disease, hyperlipidemia and seizures. Patient was noted to have an episode while at adult day care on Sunday, described as unresponsiveness. Patient's states that he was found to have low blood pressure and low pulse rate at the time this episode. Patient was then brought to the ER on Sunday. At baseline, his states that he has significant dementia, and has some good and bad days. He states that he occasionally does not speak much, and requires assistance with ADLs. Patient is occasionally able to speak in short sentences at baseline. Patient does not walk at baseline. * Creatinine on admission was 1.6, * UDS positive for amphetamines and opiates * CT Head; extensive chronic changes, no acute changes * Chest x-ray shows no significant findings Acute toxic metabolic encephalopathy, polysubstance abuse Amphetamine and opiates: counseling done Seizure disorder: increase luis, Neurology consult Acute kidney injury due to vasomotor nephropathy-He received IV fluids, kidney function has now normalized, continue to monitor closely Dementia-Continue supportive care History of stroke-Continue meds for secondary prevention DVT prophylaxis-Chemical Disposition: continue inpatient care and back to Home [facility] once stable, last night Mr. Augustine spiked an isolated temp of 100.5 F. History Interval history: Patient was seen and examined. Follow-up on current diagnosis of AMS. Overnight uneventful. Patient denies any chest pain, shortness breath, nausea/vomiting or severe headaches. Imaging, nursing note, chart, labs and old chart reviewed. Discussed with patient. Hospitalist Physical - Physical exam Narrative exam: Gen: WDWN, NAD, Awake, Alert, Orientated x 1 HEENT: NCAT, EOMI, PERRL, OP Clear Neck: supple, no adenopathy, no thyromegaly, no JVD CVS/Heart: RRR, normal S1S2, pulses present bilaterally Chest/Lungs: CTA B, Symmetrical chest expansion, good air entry bilaterally GI/Abdomen: soft, NTND, good bowel sounds, no guarding or rebound /Bladder: no suprapubic tenderness, no CVA or paraspinal tenderness Extermity/Skin: no c/c/e, no obvious rash MSK: FROM x 4 Neuro: CN 2-12 grossly intact, no new focal deficits Psych: calm - Constitutional Vitals: Temp Pulse Resp BP Pulse Ox 98.0 F 61 20 126/47 98 07/22/19 07:09 07/22/19 09:38 07/22/19 07:09 07/22/19 09:38 07/22/19 07:09 General appearance: Absent: mild distress Results - Labs CBC & Chem 7: 07/18/19 09:47 07/19/19 04:33 Labs: Laboratory Last Values WBC 6.7 K/mm3 (4.5-11.0) 07/18/19 09:47 RBC 4.31 M/mm3 (3.65-5.03) 07/18/19 09:47 Hgb 14.1 gm/dl (11.8-15.2) 07/18/19 09:47 Hct 42.0 % (35.5-45.6) 07/18/19 09:47 MCV 97 fl (84-94) H 07/18/19 09:47 MCH 33 pg (28-32) H 07/18/19 09:47 MCHC 34 % (32-34) 07/18/19 09:47 RDW 14.5 % (13.2-15.2) 07/18/19 09:47 Plt Count 231 K/mm3 (140-440) 07/18/19 09:47 Lymph % (Auto) 19.7 % (13.4-35.0) 07/18/19 09:47 [place] % (Auto) 13.0 % (0.0-7.3) H 07/18/19 09:47 Eos % (Auto) 1.8 % (0.0-4.3) 07/18/19 09:47 Baso % (Auto) 0.7 % (0.0-1.8) 07/18/19 09:47 Lymph # 1.3 K/mm3 (1.2-5.4) 07/18/19 09:47 [place] # 0.9 K/mm3 (0.0-0.8) H 07/18/19 09:47 Eos # 0.1 K/mm3 (0.0-0.4) 07/18/19 09:47 Baso # 0.0 K/mm3 (0.0-0.1) 07/18/19 09:47 Seg Neutrophils % 64.8 % (40.0-70.0) 07/18/19 09:47 Seg Neutrophils # 4.3 K/mm3 (1.8-7.7) 07/18/19 09:47 Sodium 140 mmol/L (137-145) 07/19/19 04:33 Potassium 3.7 mmol/L (3.6-5.0) 07/19/19 04:33 Chloride 101.8 mmol/L (98-107) 07/19/19 04:33 Carbon Dioxide 28 mmol/L (22-30) 07/19/19 04:33 14 mmol/L 07/19/19 04:33 BUN 20 mg/dL (9-20) 07/19/19 04:33 0.8 mg/dL (0.8-1.5) 07/19/19 04:33 Estimated GFR > 60 ml/min 07/19/19 04:33 25 % 07/19/19 04:33 Glucose 113 mg/dL (75-100) H 07/19/19 04:33 POC Glucose 171 (70-105) H 07/22/19 11:12 Calcium 9.1 mg/dL (8.4-10.2) 07/19/19 04:33 0.20 mg/dL (0.1-1.2) 07/19/19 04:33 AST 11 units/L (5-40) 07/19/19 04:33 ALT 9 units/L (7-56) 07/19/19 04:33 68 units/L (35-129) 07/19/19 04:33 46.0 umol/L (25-60) 07/18/19 10:40 < 0.010 ng/mL (0.00-0.029) 07/18/19 09:47 6.3 g/dL (6.3-8.2) 07/19/19 04:33 3.5 g/dL (3.9-5) L 07/19/19 04:33 1.3 % 07/19/19 04:33 TSH 2.020 mlU/mL (0.270-4.200) 07/18/19 10:27 Yellow (Yellow) 07/18/19 12:11 Slightly-cloudy (Clear) 07/18/19 12:11 5.0 (5.0-7.0) 07/18/19 12:11 Ur Specific [place] 1.021 (1.003-1.030) 07/18/19 12:11 <15 mg/dl mg/dL (Negative) 07/18/19 12:11 Neg mg/dL (Negative) 07/18/19 12:11 Neg mg/dL (Negative) 07/18/19 12:11 Neg (Negative) 07/18/19 12:11 Neg (Negative) 07/18/19 12:11 Neg (Negative) 07/18/19 12:11 2.0 mg/dL (<2.0) 07/18/19 12:11 Ur Leukocyte Esterase Neg (Negative) 07/18/19 12:11 1.0 /HPF (0.0-6.0) 07/18/19 12:11 2.0 /HPF (0.0-6.0) 07/18/19 12:11 U Epithel Cells (Auto) 2.0 /HPF (0-13.0) 07/18/19 12:11 1+ /HPF (Negative) 07/18/19 12:11 2+ /HPF 07/18/19 12:11 Presumptive positive 07/18/19 12:11 Presumptive negative 07/18/19 12:11 Ur Barbiturates Screen Presumptive negative 07/18/19 12:11 Ur Phencyclidine Scrn Presumptive negative 07/18/19 12:11 Ur Amphetamines Screen Presumptive positive 07/18/19 12:11 U Benzodiazepines Scrn Presumptive negative 07/18/19 12:11 Presumptive negative 07/18/19 12:11 U Marijuana (THC) Screen Presumptive negative 07/18/19 12:11 Disclamer 07/18/19 12:11 Plasma/Serum Alcohol < 0.01 % (0-0.07) 07/18/19 10:27 Active Medications - Current Medications Current Medications: Generic Name Dose Route Start Last Admin Trade Name Freq PRN Reason Stop Dose Admin Acetaminophen 650 mg 07/18/19 14:49 07/18/19 22:53 Tylenol PO 650 mg Q4H PRN Administration Pain MILD(1-3)/Fever >100.5/NEIL Albuterol 2.5 mg 07/18/19 14:49 Proventil IH Q4HRT PRN Shortness Of Breath Amlodipine Besylate 5 mg 07/19/19 12:00 07/22/19 09:38 Norvasc PO 5 mg DAILY [facility] Administration Artificial Tears 2 drops 07/20/19 10:00 07/22/19 09:32 Isopto Tears 0.5% OU 2 drops DAILY [facility] Administration Aspirin 81 mg 07/19/19 12:00 07/22/19 09:39 Baby Aspirin PO 81 mg QDAY [facility] Administration Atorvastatin Calcium 40 mg 07/19/19 22:00 07/21/19 22:56 Lipitor PO 40 mg QHS [facility] Administration Citalopram Hydrobromide 40 mg 07/19/19 12:00 07/22/19 09:36 Celexa PO 40 mg DAILY [facility] Administration Clopidogrel Bisulfate 75 mg 07/19/19 12:00 07/22/19 09:34 Plavix PO 75 mg QDAY [facility] Administration Cyclosporine 1 each 07/19/19 22:00 07/22/19 09:47 Restasis (Nf) OP 1 each BID [facility] Administration Donepezil HCl 10 mg 07/19/19 22:00 07/21/19 22:54 Aricept PO 10 mg QHS [facility] Administration Enoxaparin Sodium 40 mg 07/19/19 10:00 07/22/19 09:35 Lovenox SUB-Q 40 mg QDAY@1000 [facility] Administration Hydrochlorothiazide 25 mg 07/19/19 12:00 07/22/19 09:35 Hctz PO 25 mg QDAY [facility] Administration Hyoscyamine 0.125 mg 07/19/19 11:08 Levsin Sl SL Q4HR PRN Spasms Sodium Chloride 1,000 mls @ 75 mls/hr 07/18/19 15:00 07/20/19 22:21 Nacl 0.9% 1000 Ml IV 75 mls/hr DIRECT [facility] Administration Levetiracetam 1,000 mg 07/21/19 14:14 07/22/19 09:36 Keppra PO 1,000 mg BID [facility] Administration Lidocaine 1 each 07/19/19 12:00 07/22/19 09:33 Lidoderm 5% TD 1 each DAILY [facility] Administration Lisinopril 40 mg 07/19/19 12:00 07/22/19 09:37 Zestril PO 40 mg DAILY [facility] Administration Lorazepam 1.5 mg 07/19/19 11:08 Ativan PO Q4H PRN Anxiety Memantine 10 mg 07/19/19 12:00 07/22/19 09:33 Namenda PO 10 mg Q12HR [facility] Administration Morphine Sulfate 1 mg 07/18/19 14:49 07/19/19 04:30 Morphine IV 1 mg Q4H PRN Administration Pain, Moderate (4-6) Morphine Sulfate 10 mg 07/19/19 14:00 07/22/19 09:34 Morphine PO 10 mg Q4HR [facility] Administration Ondansetron HCl 4 mg 07/18/19 14:49 Zofran IV Q8H PRN Nausea And Vomiting Promethazine HCl 25 mg 07/19/19 11:08 Phenergan PO Q4H PRN Nausea Sodium Chloride 10 ml 07/18/19 22:00 07/22/19 09:39 Sodium Chloride Flush Syringe 10 Ml IV 10 ml BID [facility] Administration Sodium Chloride 10 ml 07/18/19 14:49 Sodium Chloride Flush Syringe 10 Ml IV PRN PRN LINE FLUSH Tamsulosin HCl 0.4 mg 07/19/19 22:00 07/21/19 22:54 Flomax PO 0.4 mg QHS [facility] Administration Tizanidine HCl 2 mg 07/19/19 22:00 07/21/19 22:55 Zanaflex PO 2 mg QHS [facility] Administration Tramadol HCl 50 mg 07/19/19 22:00 07/22/19 09:38 Ultram PO 50 mg BID [facility] Administration Trazodone HCl 150 mg 07/19/19 22:00 07/21/19 22:54 Desyrel PO 150 mg QHS [facility] Administration
--- NOTE | 2019-07-22 15:36 | Progress Note ---
Assessment and Plan Patient is a 60-year-old man with a history of hypertension, diabetes, history of stroke with residual right arm weakness, Alzheimer's disease, hyperlipidemia, history of seizures. Patient had an episode of unresponsiveness on admission. According the patient's clinical findings, the patient may have had a seizure, or they've had a hypotensive episode causing the decrease in responsiveness. Patient was also found to have acute kidney injury on admission, which is now improved. Plan: 1. Metabolic encephalopathy: - Likely in setting of DUONG. - Patient also found to have +ve amphetamines and opiates on UDS. Continue Keppra 1000 mg twice a day for seizures. CT scan did not reveal any acute abnormalities, however patient has notable cerebral atrophy. DUONG is now improved. Spoke with patient's , and it appears that patient is now improved in mental status and almost at baseline. - Will sign off. Please call with any questions. Nilton Gordon MD Neurology Subjective Date of service: 07/22/19 Principal diagnosis: Altered mental status Interval history: No acute events overnight. Objective - Exam Narrative Exam: Patient awake, only responding in 1 word answers by saying yes, and also nods head and says "ok". Follows midline and one step commands. Not able to follow 2 step complex commands. Noted to have contracture of right arm. Strength is 3 out of 5 in left upper, bilateral lower extremities, 2 out of 5 in right upper extremity. Reflexes increased in right upper extremity to 3+. Remainder of extremity reflexes are 2+. - Vital Sign Vital Signs - 12hr 07/22/19 07/22/19 07/22/19 07:09 09:37 09:38 Temperature 98.0 F Pulse Rate 51 L 61 61 Respiratory 20 Rate Blood Pressure 152/74 126/47 126/47 O2 Sat by Pulse 98 Oximetry 07/22/19 13:26 Temperature 98.6 F Pulse Rate 63 Respiratory 20 Rate Blood Pressure 115/57 O2 Sat by Pulse 93 Oximetry - General Apperance Constitutional: comfortable - EENT EENT: ATNC, PERRL, mucous membranes moist, hearing intact, vision intact - Respiratory Respiratory: lungs clear, normal breath sounds - Cardiovascular Cardiovascular: regular rate, normal S1 Extremities: no peripheral edema bilat, no clubbing, cyanosis - Gastrointestinal Gastrointestinal: normoactive bowel sounds, soft, non-tender - Integumentary Integumentary: normal - Neurologic Cranial nerve examination: PERRL, EOMI, VFF, face symmetric, tongue midline - Laboratory Findings CBC and BMP: 07/18/19 09:47 07/19/19 04:33 Abnormal Lab Findings: Abnormal Labs 07/18/19 07/18/19 07/18/19 09:47 09:47 18:06 MCV 97 H MCH 33 H [place] % (Auto) 13.0 H [place] # 0.9 H Chloride 93.7 L Carbon Dioxide 32 H BUN 29 H Creatinine 1.6 H Glucose 123 H POC Glucose 115 H Albumin 07/19/19 07/19/19 07/19/19 04:33 07:36 21:57 MCV MCH [place] % (Auto) [place] # Chloride Carbon Dioxide BUN Creatinine Glucose 113 H POC Glucose 107 H 136 H Albumin 3.5 L 07/20/19 07/20/19 07/21/19 11:28 20:44 11:28 MCV MCH [place] % (Auto) [place] # Chloride Carbon Dioxide BUN Creatinine Glucose POC Glucose 196 H 143 H 168 H Albumin 07/21/19 07/22/19 07/22/19 21:59 07:18 11:12 MCV MCH [place] % (Auto) [place] # Chloride Carbon Dioxide BUN Creatinine Glucose POC Glucose 143 H 112 H 171 H Albumin
[2019-07-22] MEDS: DESYREL PO SCH (21:23)
[2019-07-22] MEDS: ZANAFLEX PO SCH (21:24)
[2019-07-22] MEDS: FLOMAX PO SCH (21:24)
[2019-07-22] MEDS: ARICEPT PO SCH (21:24)
[2019-07-23] MEDS: MORPHINE PO SCH ×4 (02:12→13:01)
[2019-07-23 06:18] LABS: Hematocrit 37.9 % (35.5-45.6); Hemoglobin 12.8 gm/dl (11.8-15.2); Mean Corpuscular HGB Conc 34 % (32-34); Mean Corpuscular Volume 96 fl (84-94); Platelet Count 234 K/mm3 (140-440); Red Blood Count 3.97 M/mm3 (3.65-5.03); Red Cell Distribution Width 14.2 % (13.2-15.2)
[2019-07-23 06:36] LABS: BUN/Creatinine Ratio 13; Blood Urea Nitrogen 9 mg/dL (9-20); Calcium 9.8 mg/dL (8.4-10.2); Hemolysis Index 6
--- NOTE | 2019-07-23 10:08 | Discharge Summary ---
Providers - Providers Date of Admission: 07/18/19 14:49 Date of discharge: 07/23/19 Attending physician: NIKKI GALARZA 07/18/19 11:17 Speech Therapy Evaluation and Treat [CONS] Routine Reason For Exam: ams 07/19/19 16:54 Consult to Mental Health [CONS] Routine Reason For Exam: behavioral disturbance Place consult to:: [facility] Notified:: Lo Physical Therapy Evaluation and Treat [CONS] Routine Comment: Reason For Exam: ataxia Speech Therapy Evaluation and Treat [CONS] Routine Reason For Exam: dysphagia 07/20/19 17:45 Consult to Physician [CONS] Routine Comment: Consulting Provider: SHONDA DUMAS Physician Instructions: Reason For Exam: [facility] Primary care physician: TIERNEY GU Hospitalization Condition: Stable Hospital course: Patient is a 68-year-old man with a history of hypertension, DM type 2, stroke with residual right arm weakness, Alzheimer's disease, hyperlipidemia and seizures. Patient was noted to have an episode while at adult day care on Sunday, described as unresponsiveness. Patient's states that he was found to have low blood pressure and low pulse rate at the time this episode. Patient was then brought to the ER on Sunday. At baseline, his states that he has significant dementia, and has some good and bad days. He states that he occasionally does not speak much, and requires assistance with ADLs. Patient is occasionally able to speak in short sentences at baseline. Patient does not walk at baseline. * Creatinine on admission was 1.6, * UDS positive for amphetamines and opiates * CT Head; extensive chronic changes, no acute changes * Chest x-ray shows no significant findings Acute toxic metabolic encephalopathy, polysubstance abuse Amphetamine and opiates: counseling done Seizure disorder: increased keppra per Neurology Acute kidney injury due to vasomotor nephropathy-He received IV fluids, kidney function has now normalized, continue to monitor closely Dementia-Continue supportive care History of stroke-Continue meds for secondary prevention DVT prophylaxis-Chemical Disposition: back to Home Hospice once stable, no more low grade temp spike Disposition: DC-01 TO HOME OR SELFCARE Time spent for discharge: 33 minutes Core Measure Documentation - Palliative Care Palliative Care/ Comfort Measures: Not Applicable - Core Measures Any of the following diagnoses?: none - VTE Discharge Requirements Deep Vein Thrombosis/Pulmonary Embolism Present on Admission: No Has pt received <5 days of overlap therapy or INR<2.0: No Anticoagulant overlap therapy prescribed at discharge: No Contraindication No Overlap Therapy order at DC: Not Indicated Exam - Physical Exam Narrative exam: Gen: WDWN, NAD, Awake, Alert, Orientated x 1 HEENT: NCAT, EOMI, PERRL, OP Clear Neck: supple, no adenopathy, no thyromegaly, no JVD CVS/Heart: RRR, normal S1S2, pulses present bilaterally Chest/Lungs: CTA B, Symmetrical chest expansion, good air entry bilaterally GI/Abdomen: soft, NTND, good bowel sounds, no guarding or rebound /Bladder: no suprapubic tenderness, no CVA or paraspinal tenderness Extermity/Skin: no c/c/e, no obvious rash MSK: FROM x 4 Neuro: CN 2-12 grossly intact, no new focal deficits Psych: calm - Constitutional Vitals: Temp Pulse Resp BP Pulse Ox 98.0 F 56 L 18 113/70 94 07/23/19 07:11 07/23/19 07:11 07/23/19 07:11 07/23/19 07:11 07/23/19 07:11 Plan Activity: fall precautions, other (no strenous activity) Diet: low salt Follow up with: MRECED VERONICA MD [Staff Physician] - 7 Days Prescriptions: levETIRAcetam [Keppra TAB] 1,000 mg PO BID #60 tab Amlodipine Besylate [Norvasc] 5 mg PO QDAY #30 tablet
[2019-07-23] MEDS: LOVENOX SUB-Q SCH (10:48)
[2019-07-23] MEDS: HCTZ PO SCH (10:48)
[2019-07-23] MEDS: NAMENDA PO SCH (10:48)
[2019-07-23] MEDS: ULTRAM PO SCH (10:48)
[2019-07-23] MEDS: KEPPRA PO SCH (10:48)
[2019-07-23] MEDS: PLAVIX PO SCH (10:48)
[2019-07-23] MEDS: ISOPTO TEARS 0.5% OU SCH (10:48)
[2019-07-23] MEDS: celeXA PO SCH (10:49)
[2019-07-23] MEDS: NORVASC PO SCH (10:49)
[2019-07-23] MEDS: BABY ASPIRIN PO SCH (10:49)
[2019-07-23 10:50] VITALS: BP 133/67
[2019-07-23] MEDS: ZESTRIL PO SCH (10:50)
[2019-07-23] MEDS: LIDODERM 5% TD SCH (10:50)
[2019-07-23] MEDS: RESTASIS OP SCH ×2 (10:51→10:52)
[2019-07-23] MEDS: SODIUM CHLORIDE FLUSH SYRINGE 10 ML IV SCH (10:52)
== END 2019-07-23 15:46 | disposition hospice, home (50) | DRG 91 ==
LOC: ED 09:34 → 2B-ACE 14:49
PROVIDERS: ADMIT Internal Medicine; ATTEND Internal Medicine
DX: G92 Toxic encephalopathy (principal); N17.0 Acute kidney failure with tubular necrosis; I69.351 Hemiplegia and hemiparesis following cerebral infarction affecting right dominant side; I10 Essential (primary) hypertension; M19.90 Unspecified osteoarthritis, unspecified site; E78.5 Hyperlipidemia, unspecified; F15.10 Other stimulant abuse, uncomplicated; F11.10 Opioid abuse, uncomplicated; E11.9 Type 2 diabetes mellitus without complications; G30.9 Alzheimer's disease, unspecified; F02.80 Dementia in other diseases classified elsewhere, unspecified severity, without behavioral disturbance, psychotic disturbance, mood disturbance, and anxiety; Z79.899 Other long term (current) drug therapy; Z83.3 Family history of diabetes mellitus; Z82.49 Family history of ischemic heart disease and other diseases of the circulatory system; Z71.51 Drug abuse counseling and surveillance of drug abuser; Z79.84 Long term (current) use of oral hypoglycemic drugs
CPT/HCPCS: 36415; 70450; 71045; 80048; 80053; 80307; 80320; 81001; 82140; 82962; 84443; 84484; 85025; 85027; 93005; 93010; 94640; 96360; 96361; G0378; A9270-GY; G0480; J1650; J2270; J7030